=== PATIENT | male | born 1985 | race Caucasian/White ===

== ENCOUNTER 2016-05-10 10:00 | Outpatient (RCR) | payer OTHER ==
[~2016-05-10 10:00] MED LIST: ADVI200T PO; ATIV2TAB PO; BENA25CA2 PO; BENA25TA4 PO; BENZ35GEL TOP; BENZ5GEL16 TOP; CELE20TA PO; DOXY100C PO; DULO30CA PO; HYDR-3713 PO; LORA-376 PO; MINO0.1C PO; MINO100C PO; PAME50CA PO; PARO10TA84 PO; PAXI20TA3 PO; TRAM150C5 PO; TRAM37.53 PO; TRAM50TA2 PO; TRAZ100T4 PO; TRAZ50TA4 PO; ULTR37.52 PO; [UNRECOGNIZED DRUG - CODE] EX; [UNRECOGNIZED DRUG - OTHER] PO; [UNRECOGNIZED DRUG - OTHER] TOP
== END 2016-05-11 ==
LOC: M OUTALCOH 10:00
PROVIDERS: ATTEND Psychiatry & Neurology Psychiatry
DX: F12.20 Cannabis dependence, uncomplicated (principal); F11.20 Opioid dependence, uncomplicated

== ENCOUNTER 2016-06-07 09:45 | Emergency (ER) | payer OTHER ==
[2016-06-07] MEDS ORDERED: ONDANSETRON 4 MG ORAL DISINTEGRATING TAB (S0181) As Ordered ONE (10:05)
--- NOTE | 2016-06-07 10:12 | EDDOCDS ---
Physician Documentation [facility] Name: Sridhar Zimmerman Age: 31 yrs Sex: Male : 1985 Arrival Date: 06/07/2016 Time: 09:45 Bed TR7 Private MD: RISHABH MEDINA Disposition: 06/07/16 10:02 Discharged to Home/Self Care. Impression: Nausea and vomiting, Diarrhea, unspecified. - Condition is Stable. - Discharge Instructions: Viral Gastroenteritis. - Prescriptions for ZOFRAN ODT 4 mg - dissolve 1 tablet by ORAL route 4 times per day As needed do not chew, do not swallow whole; 10 tablet. - Medication Reconciliation, Work Release Form - 1 day form. - Follow up: RISHABH MEDINA; When: Call to arrange an appointment; Reason: Wound/Symptom Recheck, Recheck today's complaints, Worsening of conditions, Continuance of care. - Problem is an ongoing problem. - Symptoms are unchanged. Historical: - Allergies: no known allergies; - Home Meds: 1. doxycycline hyclate 100 mg Oral tab 1 cap every 12 hours for Acne Rosacea (Last dose: 06/07/2016) 2. tramadol 50 mg Oral tab 1 tab 5 times per day (Last dose: 06/07/2016 07:00) - PMHx: Seizures; Chronic Neck Pain; CERVICAL FRACTURE; acne; - PSHx: none; - Social history: Smoking status: Patient states former smoker of tobacco. No barriers to communication noted, The patient speaks fluent Palestinian, Speaks appropriately for age. - Family history: Not pertinent. - : The pt / caregiver states he / she is not on anticoagulants. Home medication list is obtained from the patient. - Exposure Risk Screening:: None identified. Vital Signs: 06/07 09:47 BP 149 / 88; Pulse 100; Resp 18; Temp 99.0(O); Pulse Ox 100% ; Weight 70.31 kg / 155.01 nb2 lbs; Height 5 ft. 5 in. (165.10 cm) (R); Pain 0/10; 09:47 Body Mass Index 25.79 (70.31 kg, 165.10 cm) nb2 MDM: 10:02 Ondansetron ODT Oral Disintegrating Tablet 4 mg PO once ordered. cc10 Administered Medications: 10:06 Drug: Ondansetron ODT 4 mg [ondansetron 4 mg disintegrating tablet (1 tabs)] Route: PO; ead Signatures: Nelly Stapleton,SEGUN RN Gaurang Gonzalez PA-C PA-C cc10 MTDD
--- NOTE | 2016-06-07 10:12 | EDDOCDS ---
Nurse's Notes [facility] Name: Sridhar Zimmerman Age: 31 yrs Sex: Male : 1985 Arrival Date: 06/07/2016 Time: 09:45 Bed TR7 Private MD: RISHABH MEDIAN Diagnosis: Nausea and vomiting;Diarrhea, unspecified Presentation: 06/07 09:52 Presenting complaint: Patient states: pt c/o "aches and pains," n/v/d. reports symptoms ead for approx 1 week. Adult Sepsis Screening: The patient does not have new or worsening altered mentation. Patient's respiratory rate is less than 22. Systolic blood pressure is greater than 100. Patient has a qSOFA score of 0- Negative Sepsis Screen. Suicide/Homicide risk assessment- the patient denies having any suicidal and/or homicidal ideations and does not present with any other emotional, behavioral or mental health complaints. Status: Patient is not a field service engineer or dependent. Transition of care: patient was not received from another setting of care. 09:52 Acuity: ELBA Level 3 ead 09:52 Method Of Arrival: Walkin/Carried/Asstd ead Triage Assessment: 09:53 General: Appears in no apparent distress, comfortable, Behavior is appropriate for age, ead cooperative. Pain: Location: generalized body aches Pain currently is 5 out of 10 on a pain scale. HIV screening NA for this visit Offered previously. Neurological: No deficits noted. EENT: Denies nasal congestion, nasal discharge. Respiratory: Airway is patent Respiratory effort is even, unlabored. Respiratory: Reports cough that is. GI: Reports diarrhea, nausea, vomiting. Derm: Skin is pink, warm & dry. Historical: - Allergies: no known allergies; - Home Meds: 1. doxycycline hyclate 100 mg Oral tab 1 cap every 12 hours for Acne Rosacea (Last dose: 06/07/2016) 2. tramadol 50 mg Oral tab 1 tab 5 times per day (Last dose: 06/07/2016 07:00) - PMHx: Seizures; Chronic Neck Pain; CERVICAL FRACTURE; acne; - PSHx: none; - Social history: Smoking status: Patient states former smoker of tobacco. No barriers to communication noted, The patient speaks fluent Maori, Speaks appropriately for age. - Family history: Not pertinent. - : The pt / caregiver states he / she is not on anticoagulants. Home medication list is obtained from the patient. - Exposure Risk Screening:: None identified. Screenin:09 Screening information is obtained from the patient. Fall risk: No risks identified. ead Assistance ADL's: requires no assistance with activities of daily living. Abuse/DV Screen: The patient / caregiver reports he/she is: not in a situation that causes fear, pain or injury. Nutritional screening: No deficits noted. Advance Directives: Currently, there is no health care proxy. There is no Power of [place] [employer]. home support is adequate. Assessment: 10:09 General: Appears in no apparent distress, comfortable, Behavior is appropriate for age, ead cooperative. Neurological: No deficits noted. Respiratory: Airway is patent Respiratory effort is even, unlabored. GI: Abdomen is non- distended Reports diarrhea, nausea, vomiting. Derm: Skin is pink, warm & dry. Vital Signs: 09:47 BP 149 / 88; Pulse 100; Resp 18; Temp 99.0(O); Pulse Ox 100% ; Weight 70.31 kg; Height nb2 5 ft. 5 in. (165.10 cm) (R); Pain 0/10; 09:47 Body Mass Index 25.79 (70.31 kg, 165.10 cm) nb2 Vitals: 09:47 Log In Time: June 07, 2016 at 09:40. nb2 ED Course: 09:47 Patient visited by Sara Diaz. nb2 09:47 RISHABH MEDINA is Private Physician. nb2 09:47 Patient moved to Waiting nb2 09:48 Patient visited by Sara Diaz. nb2 09:53 Triage Initiated ead 09:54 Patient moved to Triage 3 ead 09:55 [facility] Melendez [facility] cc[facility] 09:55 Thanh Odonnell MD is Attending Physician. cc10 09:55 Patient visited by Gaurang Melendez PA-C. cc10 09:55 Patient visited by Gaurang Melendez PA-C. cc10 10:02 RISHABH MEDINA is Referral Physician. cc10 10:09 Patient moved to TR7 ead 10:09 The patient / caregiver is instructed regarding the plan of care and ED course. ead 10:09 No IV's were initiated during this patient's visit. No procedures done that require ead assistance. Administered Medications: 10:06 Drug: Ondansetron ODT 4 mg [ondansetron 4 mg disintegrating tablet (1 tabs)] Route: PO; ead Order Results: There are currently no results for this order. Outcome: 10:02 Discharge ordered by Provider. cc10 10:09 Discharge Assessment: Patient awake and alert. obeys commands, Oriented to person, ead place and time. patient administered narcotics - no. The following High Risk Discharge criteria are identified: None. Discharged to home ambulatory. Condition: unchanged. Discharge instructions given to patient, Instructed on discharge instructions, follow up and referral plans. medication usage, Demonstrated understanding of instructions, medications, Pt was receptive of discharge instructions/ teaching. Prescriptions given X 1, Work note provided to patient. No special radiology studies were completed. Property sent home with patient. 10:11 Patient left the ED. ead Signatures: Nelly Stapleton RN RN ead [place], Colin, PAJimC PA-C cc10 Sara Diaz nb2 KEV
--- NOTE | 2016-06-09 11:11 | EDDOCDS ---
Physician Documentation [facility] Name: Sridhar Zimmerman Age: 31 yrs Sex: Male : 1985 Arrival Date: 06/07/2016 Time: 09:45 Bed TR7 Private MD: RISHABH MEDINA Disposition: 06/07/16 10:02 Discharged to Home/Self Care. Impression: Nausea and vomiting, Diarrhea, unspecified. - Condition is Stable. - Discharge Instructions: Viral Gastroenteritis. - Prescriptions for ZOFRAN ODT 4 mg - dissolve 1 tablet by ORAL route 4 times per day As needed do not chew, do not swallow whole; 10 tablet. - Medication Reconciliation, Work Release Form - 1 day form. - Follow up: RISHABH MEDINA; When: Call to arrange an appointment; Reason: Wound/Symptom Recheck, Recheck today's complaints, Worsening of conditions, Continuance of care. - Problem is an ongoing problem. - Symptoms are unchanged. Historical: - Allergies: no known allergies; - Home Meds: 1. doxycycline hyclate 100 mg Oral tab 1 cap every 12 hours for Acne Rosacea (Last dose: 06/07/2016) 2. tramadol 50 mg Oral tab 1 tab 5 times per day (Last dose: 06/07/2016 07:00) - PMHx: Seizures; Chronic Neck Pain; CERVICAL FRACTURE; acne; - PSHx: none; - Social history: Smoking status: Patient states former smoker of tobacco. No barriers to communication noted, The patient speaks fluent Chadian, Speaks appropriately for age. - Family history: Not pertinent. - : The pt / caregiver states he / she is not on anticoagulants. Home medication list is obtained from the patient. - Exposure Risk Screening:: None identified. Vital Signs: 06/07 09:47 BP 149 / 88; Pulse 100; Resp 18; Temp 99.0(O); Pulse Ox 100% ; Weight 70.31 kg / 155.01 nb2 lbs; Height 5 ft. 5 in. (165.10 cm) (R); Pain 0/10; 09:47 Body Mass Index 25.79 (70.31 kg, 165.10 cm) nb2 MDM: 10:02 Ondansetron ODT Oral Disintegrating Tablet 4 mg PO once ordered. cc10 11:04 [facility] Payment Agreement was scanned into [employer] and attached to record. lg 11:06 Financial registration complete. mm15 Administered Medications: 10:06 Drug: Ondansetron ODT 4 mg [ondansetron 4 mg disintegrating tablet (1 tabs)] Route: PO; ead Signatures: Willem Vivar, [place] Reg lg Issa Hook mm15 Nelly StapletonRN RN ead Gaurang Melendez PA-C PALaura cc10 The chart was reviewed and I authenticate all verbal orders and agree with the evaluation and treatment provided.Attachments: 11:04 [facility] Payment Agreement lg Chart Complete MTDD
--- NOTE | 2016-06-09 11:11 | EDDOCDS ---
Physician Documentation [facility] Name: Sridhar Zimmerman Age: 31 yrs Sex: Male : 1985 Arrival Date: 06/07/2016 Time: 09:45 Bed TR7 Private MD: RISHABH MEDINA Disposition: 06/07/16 10:02 Discharged to Home/Self Care. Impression: Nausea and vomiting, Diarrhea, unspecified. - Condition is Stable. - Discharge Instructions: Viral Gastroenteritis. - Prescriptions for ZOFRAN ODT 4 mg - dissolve 1 tablet by ORAL route 4 times per day As needed do not chew, do not swallow whole; 10 tablet. - Medication Reconciliation, Work Release Form - 1 day form. - Follow up: RISHABH MEDINA; When: Call to arrange an appointment; Reason: Wound/Symptom Recheck, Recheck today's complaints, Worsening of conditions, Continuance of care. - Problem is an ongoing problem. - Symptoms are unchanged. Historical: - Allergies: no known allergies; - Home Meds: 1. doxycycline hyclate 100 mg Oral tab 1 cap every 12 hours for Acne Rosacea (Last dose: 06/07/2016) 2. tramadol 50 mg Oral tab 1 tab 5 times per day (Last dose: 06/07/2016 07:00) - PMHx: Seizures; Chronic Neck Pain; CERVICAL FRACTURE; acne; - PSHx: none; - Social history: Smoking status: Patient states former smoker of tobacco. No barriers to communication noted, The patient speaks fluent Tuvaluan, Speaks appropriately for age. - Family history: Not pertinent. - : The pt / caregiver states he / she is not on anticoagulants. Home medication list is obtained from the patient. - Exposure Risk Screening:: None identified. Vital Signs: 06/07 09:47 BP 149 / 88; Pulse 100; Resp 18; Temp 99.0(O); Pulse Ox 100% ; Weight 70.31 kg / 155.01 nb2 lbs; Height 5 ft. 5 in. (165.10 cm) (R); Pain 0/10; 09:47 Body Mass Index 25.79 (70.31 kg, 165.10 cm) nb2 MDM: 10:02 Ondansetron ODT Oral Disintegrating Tablet 4 mg PO once ordered. cc10 11:04 [facility] Payment Agreement was scanned into [employer] and attached to record. lg 11:06 Financial registration complete. mm15 Administered Medications: 10:06 Drug: Ondansetron ODT 4 mg [ondansetron 4 mg disintegrating tablet (1 tabs)] Route: PO; ead Signatures: Willem Vivar, [place] Reg lg Issa Hook mm15 Nelly StapletonRN RN ead Gaurang Melendez PA-C PALaura cc10 The chart was reviewed and I authenticate all verbal orders and agree with the evaluation and treatment provided.Attachments: 11:04 [facility] Payment Agreement lg Chart Complete MTDD
--- NOTE | 2016-06-09 11:11 | EDDOCDS ---
Nurse's Notes [facility] Name: Sridhar Zimmerman Age: 31 yrs Sex: Male : 1985 Arrival Date: 06/07/2016 Time: 09:45 Bed TR7 Private MD: RISHABH MEDINA Diagnosis: Nausea and vomiting;Diarrhea, unspecified Presentation: 06/07 09:52 Presenting complaint: Patient states: pt c/o "aches and pains," n/v/d. reports symptoms ead for approx 1 week. Adult Sepsis Screening: The patient does not have new or worsening altered mentation. Patient's respiratory rate is less than 22. Systolic blood pressure is greater than 100. Patient has a qSOFA score of 0- Negative Sepsis Screen. Suicide/Homicide risk assessment- the patient denies having any suicidal and/or homicidal ideations and does not present with any other emotional, behavioral or mental health complaints. Status: Patient is not a automotive service cashier or dependent. Transition of care: patient was not received from another setting of care. 09:52 Acuity: ELBA Level 3 ead 09:52 Method Of Arrival: Walkin/Carried/Asstd ead Triage Assessment: 09:53 General: Appears in no apparent distress, comfortable, Behavior is appropriate for age, ead cooperative. Pain: Location: generalized body aches Pain currently is 5 out of 10 on a pain scale. HIV screening NA for this visit Offered previously. Neurological: No deficits noted. EENT: Denies nasal congestion, nasal discharge. Respiratory: Airway is patent Respiratory effort is even, unlabored. Respiratory: Reports cough that is. GI: Reports diarrhea, nausea, vomiting. Derm: Skin is pink, warm & dry. Historical: - Allergies: no known allergies; - Home Meds: 1. doxycycline hyclate 100 mg Oral tab 1 cap every 12 hours for Acne Rosacea (Last dose: 06/07/2016) 2. tramadol 50 mg Oral tab 1 tab 5 times per day (Last dose: 06/07/2016 07:00) - PMHx: Seizures; Chronic Neck Pain; CERVICAL FRACTURE; acne; - PSHx: none; - Social history: Smoking status: Patient states former smoker of tobacco. No barriers to communication noted, The patient speaks fluent Latvian, Speaks appropriately for age. - Family history: Not pertinent. - : The pt / caregiver states he / she is not on anticoagulants. Home medication list is obtained from the patient. - Exposure Risk Screening:: None identified. Screenin:09 Screening information is obtained from the patient. Fall risk: No risks identified. ead Assistance ADL's: requires no assistance with activities of daily living. Abuse/DV Screen: The patient / caregiver reports he/she is: not in a situation that causes fear, pain or injury. Nutritional screening: No deficits noted. Advance Directives: Currently, there is no health care proxy. There is no Power of Hostess Party Sales Representative. home support is adequate. Assessment: 10:09 General: Appears in no apparent distress, comfortable, Behavior is appropriate for age, ead cooperative. Neurological: No deficits noted. Respiratory: Airway is patent Respiratory effort is even, unlabored. GI: Abdomen is non- distended Reports diarrhea, nausea, vomiting. Derm: Skin is pink, warm & dry. Vital Signs: 09:47 BP 149 / 88; Pulse 100; Resp 18; Temp 99.0(O); Pulse Ox 100% ; Weight 70.31 kg; Height nb2 5 ft. 5 in. (165.10 cm) (R); Pain 0/10; 09:47 Body Mass Index 25.79 (70.31 kg, 165.10 cm) nb2 Vitals: 09:47 Log In Time: June 07, 2016 at 09:40. nb2 ED Course: 09:47 Patient visited by Sara Diaz. nb2 09:47 RISHABH MEDINA is Private Physician. nb2 09:47 Patient moved to Waiting nb2 09:48 Patient visited by Sara Diaz. nb2 09:53 Triage Initiated ead 09:54 Patient moved to Triage 3 ead 09:55 [facility] Melendez [facility] cc[facility] 09:55 Thanh Odonnell MD is Attending Physician. cc10 09:55 Patient visited by Gaurang Melendez PA-C. cc10 09:55 Patient visited by Gaurang Melendez PA-C. cc10 10:02 RISHABH MEDINA is Referral Physician. cc10 10:09 Patient moved to TR7 ead 10:09 The patient / caregiver is instructed regarding the plan of care and ED course. ead 10:09 No IV's were initiated during this patient's visit. No procedures done that require ead assistance. 11:04 [facility] Payment Agreement was scanned into [employer] and attached to record. lg Administered Medications: 10:06 Drug: Ondansetron ODT 4 mg [ondansetron 4 mg disintegrating tablet (1 tabs)] Route: PO; ead Order Results: There are currently no results for this order. Outcome: 10:02 Discharge ordered by Provider. cc10 10:09 Discharge Assessment: Patient awake and alert. obeys commands, Oriented to person, ead place and time. patient administered narcotics - no. The following High Risk Discharge criteria are identified: None. Discharged to home ambulatory. Condition: unchanged. Discharge instructions given to patient, Instructed on discharge instructions, follow up and referral plans. medication usage, Demonstrated understanding of instructions, medications, Pt was receptive of discharge instructions/ teaching. Prescriptions given X 1, Work note provided to patient. No special radiology studies were completed. Property sent home with patient. 10:11 Patient left the ED. ead Signatures: Willem Vivar, Reg Reg Nelly Starr,RN RN ead Gaurang Melendez, PA-C PA-C cc10 Sara Diaz nb2 Chart Complete MTDD
== END 2016-06-07 10:11 | disposition home or self-care (01) ==
LOC: M ED 09:45
DX: R11.2 Nausea with vomiting, unspecified (principal); R19.7 Diarrhea, unspecified; R56.9 Unspecified convulsions; L70.9 Acne, unspecified; M54.2 Cervicalgia; G89.29 Other chronic pain; Z87.891 Personal history of nicotine dependence; Z79.891 Long term (current) use of opiate analgesic; Z79.899 Other long term (current) drug therapy

== ENCOUNTER 2016-06-07 10:00 | Outpatient (RCR) | payer OTHER | END 2016-06-08 | LOC: M OUTALCOH 10:00 | PROVIDERS: ATTEND Psychiatry & Neurology Psychiatry | DX: F11.20 Opioid dependence, uncomplicated (principal); F12.20 Cannabis dependence, uncomplicated ==

== ENCOUNTER 2016-08-22 00:33 | Emergency (ER) | payer OTHER ==
[~2016-08-22] VITALS: Ht 165.1 cm; Wt 70.3 kg
[~2016-08-22 00:33] MED LIST changes: -BENZ35GEL TOP; +ERYTGEL TOP
[2016-08-22] MEDS ORDERED: CLON0.5T PO (00:43)
[2016-08-22 01:54] VITALS: BP 130/69
== END 2016-08-22 02:11 | disposition home or self-care (01) ==
LOC: M ED 01:47
DX: L70.0 Acne vulgaris (principal); Z79.2 Long term (current) use of antibiotics; Z79.899 Other long term (current) drug therapy

== ENCOUNTER 2016-09-06 14:32 | Inpatient (IN) | payer OTHER ==
[~2016-09-06] VITALS: Ht 165.1 cm; Wt 68.8 kg
[~2016-09-06 14:32] MED LIST changes: +CLON0.5T PO
[2016-09-06] MEDS ORDERED: HYDR1CAP25 PO (14:40)
[2016-09-06 15:41] LABS: MEAN CORPUSCULAR HEMOGLOBIN 31.9 pg (27.0-33.0); MEAN CORPUSCULAR HGB CONC 34.7 g/dl (32.0-36.5); MEAN CORPUSCULAR VOLUME 91.9 fl (80.0-96.0); RED CELL DISTRIBUTION WIDTH 12.8 % (11.5-14.5); WHITE BLOOD COUNT 5.3 K/mm3 (4.0-10.0)
[2016-09-06 15:55] LABS: METHADONE URINE NEGATIVE (NEGATIVE)
[2016-09-06 16:04] LABS: ALBUMIN 3.9 GM/DL (3.2-5.2); ALBUMIN/GLOBULIN RATIO 1.15 (1.00-1.93); ALKALINE PHOSPHATASE 71 U/L (45-117); ALT/SGPT 40 U/L (12-78); ANION GAP 4 MEQ/L (8-16); AST/SGOT 17 U/L (15-37); BILIRUBIN,DIRECT < 0.1 MG/DL (0.0-0.2); BILIRUBIN,TOTAL 0.2 MG/DL (0.2-1.0); BLOOD UREA NITROGEN 8 MG/DL (7-18); CALCIUM LEVEL 9.2 MG/DL (8.5-10.1); CARBON DIOXIDE LEVEL 30 MEQ/L (21-32); CHLORIDE LEVEL 106 MEQ/L (98-107); CREATININE FOR GFR 1.11 MG/DL (0.70-1.30); GLOMERULAR FILTRATION RATE > 60.0 (>60); GLUCOSE, FASTING 86 MG/DL (70-105); SODIUM LEVEL 140 MEQ/L (136-145); TOTAL PROTEIN 7.3 GM/DL (6.4-8.2)
[2016-09-06] MEDS ORDERED: traZODone 50 MG TAB PO PRN (17:00)
[2016-09-06] MEDS ORDERED: CLIN1GEL5 TOP (17:11)
[2016-09-06] MEDS ORDERED: ERYTHROMYCIN 2% TOP (17:11)
[2016-09-06 18:16] VITALS: BP 141/84
[2016-09-06] MEDS ORDERED: ACETAMINOPHEN TAB 650MG DOSE (2X325MG) PO PRN (19:00)
[2016-09-06] MEDS ORDERED: MOM 30ML SUSPENSION UDC PO PRN (19:00)
[2016-09-06] MEDS: cloNIDine 0.1 MG TAB PO PRN (19:05)
[2016-09-06] MEDS: DOXYCYCLINE HYCLATE 100 MG TAB PO SCH (20:51)
[2016-09-06] MEDS: ERYTHROMYCIN 2 % GEL 30GM TOP PRN (20:51)
[2016-09-06] MEDS: hydrOXYzine 25 MG TAB PO PRN (20:51)
[2016-09-07 06:15] VITALS: BP 114/67
[2016-09-07] MEDS: cloNIDine 0.1 MG TAB PO PRN ×2 (08:26→21:07)
[2016-09-07] MEDS: DOXYCYCLINE HYCLATE 100 MG TAB PO SCH ×2 (08:27→20:02)
[2016-09-07] MEDS: ERYTHROMYCIN 2 % GEL 30GM TOP PRN ×2 (08:27→20:02)
--- NOTE | 2016-09-07 09:54 | HPEPDOC ---
Medical History and Physical Date of Admission September 06, 2016 at 17:20 History and Physical PCP: none ATTENDING: Dr. Luis Antonio Godinez HPI: 31yoM admitted to [facility] for unspecified depressive disorder, being medically examined today. He is requesting tramadol or Vicodin to be ordered for his pain. (He has a h/o drug induced seizure with tramadol). He states he has been getting these on the street. He states this is since early this year when his previous PCP stopped prescribing for him. Patient is complaining of neck pain which is a chronic issue for him since approximately 2012. He apparently fell while having a seizure and fractured his neck. According to the patient, the seizure was caused by excessive tramadol use. He denies radiating pain down the arms. He denies weakness in the arms. He states he has been seen by orthopedics in [place] in the past with no recommendation for surgery. He was previously evaluated by neurology. He has been to Dr. Rodriguez in the past which he states injections were ineffective. Lyrica and gabapentin ineffective. He was seen by [facility] pain management regarding chronic neck pain. At that time potential risks of tramadol including seizure were apparently discussed including potential risks of opiate medication. The patient stated he was aware of potential risks however the benefits outweighed the risks to him and he wished to continue either tramadol or Vicodin. ISTOP was accessed Ref # [id number] indicating the patient received 240 tablets of tramadol 50 mg on 05/09/16. He subsequently received 120 tablets of hydrocodone 5/325 on 05/27/16. He states he has also been having low back pain. No weakness, numbness, or tingling in lower extremities. Denies any recent seizure activity. Denies any fevers, chills, weakness, fatigue, COLMENARES, CP, SOB, cough, palpitations, abdominal pain, N/V/D or changes in bowel or bladder habits. PMHx: Chronic neck pain/history cervical fracture History of drug induced seizure Acne rosacea CT cervical spine 09/13/15 disc space narrowing C4-5, 56, neural foraminal narrowing C3-4, 4-5, 5-6 and 6-7. No change compared with 08/17/15. CT brain 08/17/[address] LS Spine 05/11/15. No acute lumbar spine bony abnormality. L2 and L3 superior endplate Schmorl's nodes with associated mild age indeterminate superior endplate compression deformities of these vertebral bodies. Partial L5 sacralization. MRI Brain 10/30/15. 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 No white matter signal abnormality, acute infarct, hemorrhage, mass or mass effect. No other significant finding. EEG 11/07/15. This EEG in awake, drowsy states, stage 1 and 2 sleep, is within normal limits. EKG leads showed normal sinus rhythm PSHX: Denies SOCHX: Resides in: [place], lives with mother Marital Status: Single Kids: 1 Employment: Unemployed Tobacco use: Denies ETOH: Denies Illicit Drugs: Marijuana twice per month IV Drug Use: Denies Tattoos done unprofessionally: Denies FAMHX: Mother: Alive, diabetes, hypertension, overweight Father: Alive, paraplegic Siblings: Alive, well Children: Alive, well Unexpected deaths due to medical reasons: None. ROS: As noted in HPI, otherwise 11pt ROS of systems reviewed and unremarkable PE: GEN: 31yoM, appears stated age. Well-nourished, well developed. No acute distress. Alert and oriented x 3. Anxious. HEENT: Normocephalic, atraumatic. Pupils are equal, round, and reactive to light. Extraocular movements are intact. No nystagmus appreciated. Sclera are nonicteric. Conjunctiva without injection. Nose midline. Nasal turbinates without bogginess. EACs both patent BL. TMs both visualized and holland with good cone of light, no bulging or erythema. No facial asymmetry. Moist mucous membranes. Dentition fair. Pharynx pink and moist, no cobblestoning. Neck supple , trachea midline. No lymphadenopathy or thyromegaly appreciated. CHEST: Regular rate and rhythm, +S1, +S2 LUNGS: Clear to auscultation bilaterally. No wheezes, rales, or rhonchi. Breathing appears symmetric and easy. Patient is speaking in full sentences. No accessory muscle use. ABD: Round, soft, non-tender, non-distended. +Bowel sounds throughout. No rebound or guarding. No costovertebral angle tenderness. EXT: Pulses 2+ bilaterally dorsalis pedis and radial. No lower extremity edema appreciated. SKIN: [place], dry, warm. Capillary refill <2sec. No rashes. NEURO: Alert and oriented x 3. Cranial nerves III-XII are intact. No focal deficits appreciated. EKG: pending A&P: 31yoM admitted to [facility] for Unspecified depressive disorder. 1. Psych. Plan per Psychiatry. EKG pending. 2. Chronic neck pain. CT C Spine as above. Will request pain management opinion. Apply Lidoderm patch daily. Tylenol as needed. 3. Chronic LBP. CT as above. Lidoderm patch daily, Tylenol as needed. Await Pain management opinion. 4. Arrange follow up with PCP on discharge. 5. Substance use. Per psychiatry. 6. H/O drug induced seizure with Tramadol use. Avoid use of Tramadol. MRI Brain and EEG 10/24. Seen by Neurology last admission regarding seizure avoidance of tramadol recommended. 7. Acne rosacea. Continue doxycycline 100 mg twice a day,Continue Clindamax BID. 8. Joe staff member present throughout exam. Vital Signs Vital Signs Date Time Temp Pulse Resp B/P (MAP) Pulse Ox O2 Delivery O2 Flow Rate FiO2 09/07/16 09:27 Room Air 09/07/16 08:26 143/87 09/07/16 06:15 99.4 99 18 09/06/16 18:16 100 Laboratory Data Labs 24H Laboratory Tests 2 09/06/16 15:19: Anion Gap 4L, Glomerular Filtration Rate > 60.0, Calcium Level 9.2, Aspartate Amino Transf (AST/SGOT) 17, Alanine Aminotransferase (ALT/SGPT) 40, Alkaline Phosphatase 71, Total Bilirubin 0.2, Direct Bilirubin < 0.1, Total Protein 7.3, Albumin 3.9, Albumin/Globulin Ratio 1.15, Thyroid Stimulating Hormone (TSH) 0.634, Salicylates Level < 1.7L, Urine Amphetamines Screen NEGATIVE, Urine Benzodiazepines Screen NEGATIVE, Urine Opiates Screen POSITIVEH, Urine Methadone Screen NEGATIVE, Acetaminophen Level < 2.0L, Urine Barbiturates Screen NEGATIVE, Urine Phencyclidine Screen NEGATIVE, Urine Cocaine Metabolite Screen NEGATIVE, Urine Cannabinoids Screen NEGATIVE, Ethyl Alcohol Level < 0.003 CBC/BMP Laboratory Tests 09/06/16 15:19 Red Blood Count 4.39, Mean Corpuscular Volume 91.9, Mean Corpuscular Hemoglobin 31.9, Mean Corpuscular Hemoglobin Concent 34.7, Red Cell Distribution Width 12.8 Home Medications Scheduled Clindamycin Phosphate (Clindamax) 1 % Gel, 1 DOSE TOP BID Clonazepam (Clonazepam) 0.5 Mg Tab, 0.5 MG PO TID for ANXIETY Doxycycline Hyclate (Doxycycline Hyclate) 100 Mg Cap, 100 MG PO BID for acne Scheduled PRN Hydroxyzine Pamoate (Hydroxyzine Pamoate) 25 Mg Cap, 25 MG PO QID PRN for WITHDRAWAL SYMPTOMS [Erythromycin 2%] , 1 DOSE TOP BID PRN for ACNE BREAKOUT Allergies Coded Allergies: No Known Allergies (Unverified , 03/22/15) Mali Martinez September 07, 2016 09:54
[2016-09-07] MEDS: LIDOCAINE 5% (LIDODERM) PATCH TD SCH (09:58)
[2016-09-07] MEDS: hydrOXYzine 25 MG TAB PO PRN ×2 (11:48→20:02)
[2016-09-07] MEDS: **NOTE PATIENT COMMENT** MISC XX SCH (11:49)
[2016-09-07] MEDS ORDERED: LOPERAMIDE 2 MG CAP PO PRN (17:30)
[2016-09-07] MEDS ORDERED: BUPRENORPHINE/NALOXONE 8-2MG SUBLINGUAL TABLET(SUBOXONE) SL SCH (17:30)
[2016-09-07 18:16] VITALS: BP 110/65
[2016-09-07 21:07] VITALS: BP 151/81
--- NOTE | 2016-09-07 21:46 | MHHPEPDOC ---
[facility] History & Physical History and Physical DATE OF ADMISSION: September 06, 2016 at 17:20 LEGAL STATUS AT ADMISSION: 9.39 CHIEF COMPLAINT: "I just want help" HISTORY OF THE PRESENT ILLNESS: The patient 31-year-old man presented to [facility] with passive suicidal ideation describing that multiple stressors including caring for his ailing mother and her boyfriend as well as isolate to father that begun taking severe toll on his mood and sleep. Describe that he'd had difficulty caring for them and attending to his employment and thus found himself unemployed with additional difficulties in the isolated area of [facility]. He described that he additionally had difficulties misusing black-market prescription opioids since 9 years ago when he had had a injury. Describe that he became rapidly addicted to these and subsequently has become very tearful and anxious thinking about his family members, fearing that they will and leave him. He describes difficulty with intermittent depressive symptoms that do not mate full criteria for clinical depression as well as generalized anxiety. PSYCHIATRIC ROS: Affective: The patient denies any episodes of unprovoked depressed mood associated with neurovegetative symptoms lasting longer than 2 weeks with symptoms present nearly everyday. The patient denies any episodes of euphoria/dysphoria associated with decreased need for sleep, hedonism, talkatively or impulsivity lasting longer than 5 days. Anxiety: the patient does submit to excessive background anxiety does unprovoked and freestanding. He does not allude any discrete episodes of panic. In the past chart he does appear to endorse discrete episodes of panic but these are in the context of substance use. Trauma: The patient denies any traumatic events associated with nightmares or intrusive thoughts. Psychosis:The patient denies any experiences of auditory or visual hallucinations. They deny any episodes of paranoia or delusional thinking in the past Personality: the patient screens equivalently positive for personality disorder PAST PSYCHIATRIC HISTORY: Prior Psychiatric Diagnosis: "depression" Previous admissions: 3 to 4 Current Medications: Klonopin Suicide attempts: 1 suspected attempt year and half ago with the tramadol overdose Psychotropic Medication History: has been tried on "everything" but is unable to remember any medication names ALLERGIES: Please see below. FAMILY PSYCHIATRIC HISTORY: reports no family psychiatric history in terms of addiction, suicides are mental health disorders that the patient is aware of SOCIAL HISTORY: Early Relations:/development: the patient grew up in [place], where he described his family as generally "good" up until he caught his mother cheating on his father, which he believes subsequently precipitated their divorce -sibling order: unknown -Paternal relationships: describes that he is "little problem" with his father but that he was generally handy. He described his mother and him have a tumultuous relationship after he had exposed her for her cheating. 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 Legal: a few scattered drug-related offenses Martial: unmarried, as an ex-girlfriend who lives in [place] with his young son Economic: supported by his mother current boyfriend Supports: mother, her boyfriend and his paralyzed father Abuse/trauma: refutes any sexual, physical or emotional abuse SUBSTANCE ABUSE HISTORY: is a significant abuse history of opioids started 9 years ago after an injury, is misuse the number of prescription medications including hydrocodone and tramadol. He has a significant history of overusing tramadol point of seizures. He most recently is hydrocodone just prior to coming to the ER. He also has a history of using marijuana nicotine as well as alcohol. Most recently was at [facility] for rehab. MEDICAL HISTORY: Acne chronic neck pain hippocampal atrophy MENTAL STATUS EXAMINATION: General: mildly disheveled Speech: coherent Thought processes: linear Thought content: perseverative on anxiety Abstract reasoning, and computation: intact Description of associations: intact Description of abnormal or psychotic thoughts: makes no threats towards himself or others at this time. Does not appear to be responding to internal stimuli. Does not appear to be endorsing any bizarre or paranoid ideation. Judgment: limited Insight: limited Orientation: alert and oriented times 3 Recent and remote memory: reports difficulty with remote memory, but describes recent memory intact Attention span and concentration: intact Fund of knowledge: adequate Mood: "bad" Affect: dysthymic and tearful DIAGNOSES: 1. Substance induced depressive disorder 2. Polysubstance use disorder, severe, in withdrawal 3. Substance induced anxiety disorder ASSESSMENT: 31-year-old man whom had a relatively functional occupational history, became addicted to opioids after neck injury and subsequently became nonfunctional with severe depression and anxiety secondary to his long use of opioids. He does have some motivation towards getting better attending rehab. PROBLEM LIST: 1. Substance use 2. Anxiety 3. Depression INITIAL TREATMENT PLAN: 1. Patient was admitted on a 9.39 legal status. 2. Complete history was obtained. 3. With patients permission, family will be contacted and database will be expanded. 4. Patients medication regimen will be reviewed and changed accordingly. -Patiently placed on a buprenorphine taper with one dose of 8 mg for opioid withdrawal -he will additionally be placed on as the medications broke would withdrawal -will explore serotonin drugs patient resolves in order to increase hippocampal size 5. Patient will be provided with protected environment. 6. Patient will be treated with individual, group, and milieu therapies. 7. Patient will receive supportive psych-education. 8. Discharge planning will commence immediately. 9. Outpatient follow-up treatment will be strongly recommended. 10. The initial treatment plan will focus initially on: opioid detoxification and subsequent start on serotonergic drugs ESTIMATED LENGTH OF STAY: 2-5 DAYS. TIME SPENT COUNSELING AND COORDINATING INITIAL CARE: 50 minutes. Medications Scheduled Clindamycin Phosphate (Clindamax) 1 % Gel, 1 DOSE TOP BID, (Reported) Clonazepam (Clonazepam) 0.5 Mg Tab, 0.5 MG PO TID for ANXIETY, (Reported) Doxycycline Hyclate (Doxycycline Hyclate) 100 Mg Cap, 100 MG PO BID for acne, ( Reported) Scheduled PRN Hydroxyzine Pamoate (Hydroxyzine Pamoate) 25 Mg Cap, 25 MG PO QID PRN for WITHDRAWAL SYMPTOMS, (Reported) [Erythromycin 2%] , 1 DOSE TOP BID PRN for ACNE BREAKOUT, (Reported) Allergies Coded Allergies: No Known Allergies (Unverified , 03/22/15) E ATTESTATION My preceptor for this patient encounter was physically present in the building during the encounter and was fully available. As needed, all aspects of the patient interview, examination, medical decision making process, and medical care plan development were reviewed and approved by the preceptor. Preceptor is aware and concurs with the plan as stated in the body of this note and will attest to such by his/her cosignature. RALEIGH CONNOLLY DO September 07, 2016 21:46
[2016-09-07] MEDS ORDERED: BUPRENORPHINE/NALOXONE 8-2MG SUBLINGUAL TABLET(SUBOXONE) SL ONE (22:00)
--- NOTE | 2016-09-07 22:42 | ECGEPIP ---
Stationary ECG Study [facility] Test Date: 2016-09-07 Pat Name: ALYSHA STEARNS Department: Room: [place] [address] Gender: M [employer] Metal: KADEEM : 1985 Requested By: Mali Martinez Order Number: [id number] Reading MD: Luis Antonio Root Measurements Intervals [place] Rate: 87 P: 24 NE: 156 QRS: 15 QRSD: 89 T: 28 QT: 338 QTc: 408 Interpretive Statements SINUS RHYTHM Within normal limits. Electronically Signed On 09-07-2016 22:42:33 EDT by Luis Antonio Root
[2016-09-08 06:24] VITALS: BP 137/85
[2016-09-08] MEDS: LIDOCAINE 5% (LIDODERM) PATCH TD SCH (08:15)
[2016-09-08] MEDS: DOXYCYCLINE HYCLATE 100 MG TAB PO SCH ×2 (08:17→20:03)
[2016-09-08] MEDS: ERYTHROMYCIN 2 % GEL 30GM TOP PRN ×2 (08:17→20:04)
[2016-09-08] MEDS: hydrOXYzine 25 MG TAB PO PRN ×2 (08:20→20:03)
[2016-09-08] MEDS ORDERED: BUPRENORPHINE/NALOXONE 8-2MG SUBLINGUAL TABLET(SUBOXONE) SL ONE (17:30)
[2016-09-08 18:37] VITALS: BP 126/76
--- NOTE | 2016-09-08 18:53 | CR ---
DATE OF CONSULTATION: 09/08/2016 REFERRING PROVIDER: KAR Henao. CHIEF COMPLAINT: 1. Neck pain. 2. Low back pain. HISTORY OF PRESENT ILLNESS: Sridhar is a 31-year-old gentleman admitted to inpatient mental health unit due to altered mental status. It was noted that he had high opiate level on toxicology report on admission. I-STOP Registry is reviewed and shows no current prescribed opioids for this gentleman in several months. The patient states that he buys pain medication on the street. Reports that he took Vicodin approximately 20 tablets 2 days ago. History of having seizures with withdrawing. Long history of substance abuse. Long history of neck pain and low back pain. The patient attributes his use of street drugs to treat chronic low back and neck pain.. He has been having neck pain since 2012. States he has "tried multiple different medications and treatments and nothing works." Also history of chronic low back pain of which the patient states has flared up over the past 2 months. Denies any precipitating events. Rating neck pain as a 4/10 VAS and low back pain as a 3/10 VAS. No particular aggravating factors. The patient states when he was in here last he received Ultracet that was helpful. Due to his potential for withdrawal seizures, I informed him that I did not think that even Ultracet would be recommended. SOCIAL HISOTRY: Lives with his mother. Admits to a long history of addiction disorder with use of opiates. Denies injecting or snorting medication. FAMILY HISTORY: Noncontributory. PHYSICAL EXAMINATION: GENERAL: Alert, oriented, good eye contact. Affect is somewhat frustrated / depressed. VITAL SIGNS: 97.3, 88, 18, BP 137/85. CARDIAC: S1-S2. Normal rate and rhythm. RESPIRAOTRY: Lung sounds clear. Respirations nonlabored. NEUROMUSCULAR: Muscle strength of the upper and lower extremities 5/5. Normal sensation to light touch lower extremities. Inspection of spine, mild tenderness noted over bilateral sacroiliac joint region. Otherwise nontender. Normal steady gait. ASSESSMENT: 1. Cervicalgia. 2. Sacroiliac joint pain. 3. Chronic low back pain. PLAN: The patient states he is ready to go into an inpatient facility for addiction disorder. I would not recommend using Ultracet due to the possibility of him withdrawing in the next day and possibility of seizures associated of withdrawal could be complicated by use of tramadol. I do not think further imaging studies are necessary at this time. We talked a little bit about the alternatives to medication for chronic pain to include maybe a referral to our pain center from his primary care provider after his inpatient addiction disorder stay. Of course, having medication available for withdrawal would be warranted with his condition and recent use of large quantities of opiates. I would encourage use of Tylenol and [place] for complaints of pain. Continue with encouraging alternatives for relaxation and assistance with pain control. Thank you for allowing us to participate in the care of your patient. If you have any questions please do not hesitate to contact me. Sincerely, Mae Prescott Family nurse practitioner pain [facility] julisa ANGULO
[2016-09-08] MEDS: fluvoxaMINE MALEATE 50 MG TAB PO SCH (20:03)
[2016-09-08] MEDS: **NOTE PATIENT COMMENT** MISC XX SCH (20:45)
--- NOTE | 2016-09-08 22:04 | MHIPNPDOC ---
[facility] Progress Note Progress Note DATE OF SERVICE: 09/08/16 INTERVAL HISTORY: Medication Side effects: the patient reports no side effects from his buprenorphine, clonidine or any other medications that is taken currently Behavior/events: the patient has been engaged the milieu, pleasant and friendly. No events overnight Group Attendance: has been attending groups frequently Psychiatric Symptoms: the patient reports that his initial extreme pain and withdrawal symptoms of opioids has resolved the most part. Describes that at this time is not feeling as anxious and was able to sleep last night. He describes that he felt the Suboxone taper was helpful. VITAL SIGNS: See below. NEW TEST RESULTS: See below CURRENT MEDICATIONS: See below. MENTAL STATUS EXAMINATION: General: Well dressed with good hygiene Speech: Spontaneous and fluid Thought processes: Linear and logical Thought content: worries about symptoms and sleep Abstract reasoning, and computation: Intact Description of associations: Intact Description of abnormal or psychotic thoughts:Denies any suicidal or homicidal ideation. Denies any auditory or visual hallucinations. Does not appear to be responding to internal stimuli. Does not appear to be endorsing any bizarre or paranoid ideation. Judgment: improving Insight: improving Orientation: Alert and orientated 3 Recent and remote memory: Intact Attention span and concentration: Intact Fund of knowledge: Adequate Mood: "better" Affect: Euthymic constricted range DIAGNOSES: 1. Unspecified depressive disorder. 2. Unspecified anxiety disorder. 3. Poly substance use disorder, severe, in withdrawal. ASSESSMENT: opioid withdrawal improving, patients depressive symptoms and anxiety symptoms will need to be addressed now. He is failed multiple antidepressants. MANAGEMENT PLAN: Medications: start Luvox 50 mg daily, start Rozerem 8 milligrams as needed for sleep. Psychotherapy: encourage group therapy Social: referral for substance inpatient rehab Misc:. As needed medications for opioid withdrawal Disposition: The patient will need of further inpatient stay to address severe depressive and anxiety symptoms. TIME SPENT: 20 minutes. Vital Signs Vital Signs Date Time Temp Pulse Resp B/P (MAP) Pulse Ox O2 Delivery O2 Flow Rate FiO2 09/08/16 18:37 98.2 95 18 126/76 (93) 09/07/16 09:27 Room Air 09/06/16 18:16 100 Current Medications Current Medications Acetaminophen (Tylenol Tab) 650 mg Q6HP PRN PO HEADACHE or DISCOMFORT; Start at 19:00; Stop 10/06/16 at 18:59 Al Hydrox/Mg Hydrox/Simethicone (Mylanta) 30 ml Q4HP PRN PO HEARTBURN/ INDIGESTION; Start 09/06/16 at 19:00; Stop 10/06/16 at 18:59 Buprenorphine/ Naloxone (Suboxone 8/2mg) 1 tab ASDIRECTED SL ; Start 09/07/16 at 17:30; Stop 09/07/16 at 18:45; Status DC Clonidine HCl (Catapres) 0.1 mg Q6HP PRN PO Opiate withdrawal Last administered on 09/07/16 21:07; Start 09/06/16 at 17:00; Stop 10/06/16 at 16:59 Doxycycline Hyclate (Vibramycin) 100 mg BID PO Last administered on 09/08/16 20:03; Start 09/06/16 at 21:00; Stop 09/13/16 at 20:59 Erythromycin (Erythromycin) APPLY TO AREAS OF ACNE BIDP PRN TOP Acne breakout Last administered on 09/08/16 20:04; Start 09/06/16 at 18:00; Stop 10/06/16 at 17:59 Fluvoxamine Maleate (Luvox) 50 mg QHS PO Last administered on 09/08/16 20:03; Start 09/08/16 at 21:00; Stop 10/08/16 at 20:59 Home Med (Med Rec Complete!) ASDIRECTED XX ; Start 09/06/16 at 17:15; Stop at 17:15; Status DC Hydroxyzine HCl (Atarax) 25 mg QIDP PRN PO anxiety Last administered on 20:03; Start 09/06/16 at 17:00; Stop 10/06/16 at 16:59 Ibuprofen (Advil) 600 mg Q8HP PRN PO PAIN; Start 09/08/16 at 21:45; Stop at 21:44 Lidocaine (Lidoderm Patch) 2 patch DAILY TD Last administered on 09/07/16 09: 58; Start 09/07/16 at 09:00; Stop 10/07/16 at 08:59 Loperamide HCl (Imodium) 2 mg ASDIRECTED PRN PO DIARRHEA; Start 09/07/16 at 17: 30; Stop 10/07/16 at 17:29 Magnesium Hydroxide (Milk Of Magnesia) 30 ml DAILYPRN PRN PO CONSTIPATION; Start 09/06/16 at 19:00; Stop 10/06/16 at 18:59 Non-Formulary Medication ( See Comment Field Below ) REMOVE LIDODERM PATCH DAILY@21 XX Last administered on 09/07/16 11:49; Start 09/07/16 at 21:00; Stop 10/07/16 at 20:59 Phenylephrine HCl (Neosynephrine 0.25% Nasal [place]) 2 spray Q4HP PRN NA NASAL CONGESTION; Start 09/08/16 at 11:30; Stop 10/08/16 at 11:29 Ramelteon (Rozerem) 8 mg QHS PRN PO SLEEP; Start 09/08/16 at 11:30; Stop at 11:29 Trazodone HCl (Desyrel) 50 mg QHSP PRN PO Insomnia Last administered on 21:10; Start 09/06/16 at 17:00; Stop 09/08/16 at 11:25; Status DC Allergies Coded Allergies: No Known Allergies (Unverified , 03/22/15) GME ATTESTATION My preceptor for this patient encounter was physically present in the building during the encounter and was fully available. As needed, all aspects of the patient interview, examination, medical decision making process, and medical care plan development were reviewed and approved by the preceptor. Preceptor is aware and concurs with the plan as stated in the body of this note and will attest to such by his/her cosignature. RALEIGH CONNOLLY DO September 08, 2016 22:04
[2016-09-08] MEDS: RAMELTEON 8 MG TAB (ROZEREM) PO PRN (23:01)
[2016-09-09 07:04] VITALS: BP 129/71
[2016-09-09] MEDS: LIDOCAINE 5% (LIDODERM) PATCH TD SCH (08:02)
[2016-09-09] MEDS: DOXYCYCLINE HYCLATE 100 MG TAB PO SCH ×2 (08:03→20:06)
[2016-09-09] MEDS: ERYTHROMYCIN 2 % GEL 30GM TOP PRN ×2 (08:04→21:55)
--- NOTE | 2016-09-09 17:39 | MHIPNPDOC ---
[facility] Progress Note Progress Note DATE OF SERVICE: 09/09/16 INTERVAL HISTORY: Medication Side effects: Denies Behavior: He has been compliant with medications, has attended some groups, has not displayed violent or aggressive behavior Group Attendance: Has attended some of the groups Psychiatric Symptom change: Continues to be depressed and anxious but he acknowledges that he has not had severe opioid withdrawal symptoms and that his mind is more clear now. He was able to speak about past events related to his mother and that condition the way he felt towards her during his adolescence and triggered acting outs. Spoke about his previous marriage and how that has affected him. VITAL SIGNS: See below. NEW TEST RESULTS: See below CURRENT MEDICATIONS: See below. MENTAL STATUS EXAMINATION: General: Alert, dressed in hospital clothes, with good eye contact, good hygiene Speech: Normal Thought processes: Intact Thought content: About family dynamics and interactions that contributed to his long-standing depression, anger and anxiety. Abstract reasoning, and computation: Good Description of associations: Not loose Description of abnormal or psychotic thoughts: Not present Judgment: Improving Insight: Improving Orientation: Oriented 3 Recent and remote memory: Intact Attention span and concentration: Good Fund of knowledge: Adequate Mood: "Better" Affect: And less depressed, less anxious, less angry DIAGNOSES: 1. Unspecified depressive disorder 2. Unspecified anxiety disorder. 3. Polysubstance use disorder . ASSESSMENT: Patient has had poor response to medications, group therapy and individual psychotherapy. MANAGEMENT PLAN: Medications: Luvox 50 mg by mouth daily, Atarax 25 mg by mouth 4 times a day when necessary for anxiety and agitation, Rozerem 4 mg by mouth daily at bedtime for insomnia Psychotherapy: Will encouraged to keep attending groups Social: -- Misc: -- Disposition: The patient is to continue hospitalization to work on personal issues regarding his relationship with his mother, his father and his ex-. He needs to heal those relationships. TIME SPENT: 30 minutes. Vital Signs Vital Signs Date Time Temp Pulse Resp B/P (MAP) Pulse Ox O2 Delivery O2 Flow Rate FiO2 09/09/16 07:04 98.4 70 18 129/71 (90) Room Air 09/06/16 18:16 100 Current Medications Current Medications Acetaminophen (Tylenol Tab) 650 mg Q6HP PRN PO HEADACHE or DISCOMFORT; Start at 19:00; Stop 10/06/16 at 18:59 Al Hydrox/Mg Hydrox/Simethicone (Mylanta) 30 ml Q4HP PRN PO HEARTBURN/ INDIGESTION; Start 09/06/16 at 19:00; Stop 10/06/16 at 18:59 Buprenorphine/ Naloxone (Suboxone 8/2mg) 1 tab ASDIRECTED SL ; Start 09/07/16 at 17:30; Stop 09/07/16 at 18:45; Status DC Clonidine HCl (Catapres) 0.1 mg Q6HP PRN PO Opiate withdrawal Last administered on 09/07/16 21:07; Start 09/06/16 at 17:00; Stop 10/06/16 at 16:59 Doxycycline Hyclate (Vibramycin) 100 mg BID PO Last administered on 09/09/16 08 :03; Start 09/06/16 at 21:00; Stop 09/13/16 at 20:59 Erythromycin (Erythromycin) APPLY TO AREAS OF ACNE BIDP PRN TOP Acne breakout Last administered on 09/09/16 08:04; Start 09/06/16 at 18:00; Stop 10/06/16 at 17:59 Fluvoxamine Maleate (Luvox) 50 mg QHS PO Last administered on 09/08/16 20:03; Start 09/08/16 at 21:00; Stop 10/08/16 at 20:59 Home Med (Med Rec Complete!) ASDIRECTED XX ; Start 09/06/16 at 17:15; Stop at 17:15; Status DC Hydroxyzine HCl (Atarax) 25 mg QIDP PRN PO anxiety Last administered on 20:03; Start 09/06/16 at 17:00; Stop 10/06/16 at 16:59 Ibuprofen (Advil) 600 mg Q8HP PRN PO PAIN; Start 09/08/16 at 21:45; Stop at 21:44 Lidocaine (Lidoderm Patch) 2 patch DAILY TD Last administered on 09/07/16 09: 58; Start 09/07/16 at 09:00; Stop 10/07/16 at 08:59 Loperamide HCl (Imodium) 2 mg ASDIRECTED PRN PO DIARRHEA; Start 09/07/16 at 17: 30; Stop 10/07/16 at 17:29 Magnesium Hydroxide (Milk Of Magnesia) 30 ml DAILYPRN PRN PO CONSTIPATION; Start 09/06/16 at 19:00; Stop 10/06/16 at 18:59 Non-Formulary Medication ( See Comment Field Below ) REMOVE LIDODERM PATCH DAILY@21 XX Last administered on 09/07/16 11:49; Start 09/07/16 at 21:00; Stop 10/07/16 at 20:59 Phenylephrine HCl (Neosynephrine 0.25% Nasal [place]) 2 spray Q4HP PRN NA NASAL CONGESTION; Start 09/08/16 at 11:30; Stop 10/08/16 at 11:29 Ramelteon (Rozerem) 8 mg QHS PRN PO SLEEP Last administered on 09/08/16 23:01 ; Start 09/08/16 at 11:30; Stop 10/08/16 at 11:29 Trazodone HCl (Desyrel) 50 mg QHSP PRN PO Insomnia Last administered on 21:10; Start 09/06/16 at 17:00; Stop 09/08/16 at 11:25; Status DC Allergies Coded Allergies: No Known Allergies (Unverified , 03/22/15) KEO WARD MD Sep 09, 2016 17:39
[2016-09-09 18:00] VITALS: BP 138/78
[2016-09-09] MEDS: hydrOXYzine 25 MG TAB PO PRN (20:06)
[2016-09-09] MEDS: fluvoxaMINE MALEATE 50 MG TAB PO SCH (20:06)
[2016-09-09] MEDS: **NOTE PATIENT COMMENT** MISC XX SCH (20:08)
[2016-09-09] MEDS: RAMELTEON 8 MG TAB (ROZEREM) PO PRN (21:55)
[2016-09-10 06:00] VITALS: BP 124/71
[2016-09-10] MEDS: LIDOCAINE 5% (LIDODERM) PATCH TD SCH (08:13)
[2016-09-10] MEDS: DOXYCYCLINE HYCLATE 100 MG TAB PO SCH ×2 (08:15→20:43)
[2016-09-10] MEDS: ERYTHROMYCIN 2 % GEL 30GM TOP PRN ×2 (08:16→20:44)
[2016-09-10] MEDS: IBUPROFEN 600 MG TAB PO PRN (14:19)
[2016-09-10 18:00] VITALS: BP 129/61
[2016-09-10] MEDS ORDERED: IBUPROFEN 400 MG TAB PO PRN (18:00)
[2016-09-10] MEDS: fluvoxaMINE MALEATE 50 MG TAB PO SCH (20:43)
[2016-09-10] MEDS: **NOTE PATIENT COMMENT** MISC XX SCH (20:46)
--- NOTE | 2016-09-10 21:06 | MHIPNPDOC ---
[facility] Progress Note Progress Note DATE OF SERVICE: 09/10/16 INTERVAL HISTORY: Medication Side effects: patient denies any side effects from his current medications Behavior/events: no events, patient states he is feeling well. Describes that he is excited to go to rehab soon. Group Attendance: has attended groups fairly frequently Psychiatric Symptoms: reports that his anxiety and depression are much better controlled and that his sleeping pattern is normalized. He describes that he feels more control his emotions and has ceased having cravings for opioids. Describes back pain is still present but much less disturbing. VITAL SIGNS: See below. NEW TEST RESULTS: See below CURRENT MEDICATIONS: See below. MENTAL STATUS EXAMINATION: General: Well dressed with good hygiene Speech: Spontaneous and fluid Thought processes: Linear and logical Thought content: future orientated Abstract reasoning, and computation: Intact Description of associations: Intact Description of abnormal or psychotic thoughts:Denies any suicidal or homicidal ideation. Denies any auditory or visual hallucinations. Does not appear to be responding to internal stimuli. Does not appear to be endorsing any bizarre or paranoid ideation. Judgment: improving Insight: improving Orientation: Alert and orientated 3 Recent and remote memory: Intact Attention span and concentration: Intact Fund of knowledge: Adequate Mood: "great" Affect: Euthymic with a full range DIAGNOSES: 1. Unspecified depressive disorder. 2. Unspecified anxiety disorder. 3. Poly substance use disorder, severe, withdrawal. ASSESSMENT: improving MANAGEMENT PLAN: Medications: increase Luvox to 100 mg nightly, continue Rozerem and opioid withdrawal protocols Psychotherapy: encourage group attendance Social: discharge to rehab next week Misc: ibuprofen for back pain Disposition: The patient will need of further inpatient stay to address disposition needs medication titrations. TIME SPENT: 15 minutes. Vital Signs Vital Signs Date Time Temp Pulse Resp B/P (MAP) Pulse Ox O2 Delivery O2 Flow Rate FiO2 09/10/16 18:00 98.9 90 18 129/61 (83) 09/09/16 07:04 Room Air 09/06/16 18:16 100 Current Medications Current Medications Acetaminophen (Tylenol Tab) 650 mg Q6HP PRN PO HEADACHE or DISCOMFORT; Start at 19:00; Stop 10/06/16 at 18:59 Al Hydrox/Mg Hydrox/Simethicone (Mylanta) 30 ml Q4HP PRN PO HEARTBURN/ INDIGESTION; Start 09/06/16 at 19:00; Stop 10/06/16 at 18:59 Buprenorphine/ Naloxone (Suboxone 8/2mg) 1 tab ASDIRECTED SL ; Start 09/07/16 at 17:30; Stop 09/07/16 at 18:45; Status DC Clonidine HCl (Catapres) 0.1 mg Q6HP PRN PO Opiate withdrawal Last administered on 09/07/16 21:07; Start 09/06/16 at 17:00; Stop 10/06/16 at 16:59 Doxycycline Hyclate (Vibramycin) 100 mg BID PO Last administered on 09/10/16 20 :43; Start 09/06/16 at 21:00; Stop 09/13/16 at 20:59 Erythromycin (Erythromycin) APPLY TO AREAS OF ACNE BIDP PRN TOP Acne breakout Last administered on 09/10/16 20:44; Start 09/06/16 at 18:00; Stop 10/06/16 at 17:59 Fluvoxamine Maleate (Luvox) 50 mg QHS PO Last administered on 09/09/16 20:06; Start 09/08/16 at 21:00; Stop 09/10/16 at 17:56; Status DC Fluvoxamine Maleate (Luvox) 100 mg QHS PO Last administered on 09/10/16 20:43; Start 09/10/16 at 21:00; Stop 10/10/16 at 20:59 Home Med (Med Rec Complete!) ASDIRECTED XX ; Start 09/06/16 at 17:15; Stop at 17:15; Status DC Hydroxyzine HCl (Atarax) 25 mg QIDP PRN PO anxiety Last administered on 20:06; Start 09/06/16 at 17:00; Stop 10/06/16 at 16:59 Ibuprofen (Advil) 400 mg Q6HP PRN PO PAIN; Start 09/10/16 at 18:00; Stop at 17:59 Ibuprofen (Advil) 600 mg Q8HP PRN PO PAIN Last administered on 09/10/16 14:19; Start 09/08/16 at 21:45; Stop 10/08/16 at 21:44 Lidocaine (Lidoderm Patch) 2 patch DAILY TD Last administered on 09/07/16 09: 58; Start 09/07/16 at 09:00; Stop 10/07/16 at 08:59 Loperamide HCl (Imodium) 2 mg ASDIRECTED PRN PO DIARRHEA; Start 09/07/16 at 17: 30; Stop 10/07/16 at 17:29 Magnesium Hydroxide (Milk Of Magnesia) 30 ml DAILYPRN PRN PO CONSTIPATION; Start 09/06/16 at 19:00; Stop 10/06/16 at 18:59 Non-Formulary Medication ( See Comment Field Below ) REMOVE LIDODERM PATCH DAILY@21 XX Last administered on 09/07/16 11:49; Start 09/07/16 at 21:00; Stop 10/07/16 at 20:59 Phenylephrine HCl (Neosynephrine 0.25% Nasal [place]) 2 spray Q4HP PRN NA NASAL CONGESTION; Start 09/08/16 at 11:30; Stop 10/08/16 at 11:29 Ramelteon (Rozerem) 8 mg QHS PRN PO SLEEP Last administered on 09/09/16 21:55; Start 09/08/16 at 11:30; Stop 10/08/16 at 11:29 Trazodone HCl (Desyrel) 50 mg QHSP PRN PO Insomnia Last administered on 21:10; Start 09/06/16 at 17:00; Stop 09/08/16 at 11:25; Status DC Allergies Coded Allergies: No Known Allergies (Unverified , 03/22/15) GME ATTESTATION My preceptor for this patient encounter was physically present in the building during the encounter and was fully available. As needed, all aspects of the patient interview, examination, medical decision making process, and medical care plan development were reviewed and approved by the preceptor. Preceptor is aware and concurs with the plan as stated in the body of this note and will attest to such by his/her cosignature. RALEIGH CONNOLLY DO Sep 10, 2016 21:06
[2016-09-10] MEDS: RAMELTEON 8 MG TAB (ROZEREM) PO PRN (23:07)
[2016-09-11] MEDS: PHENYLEPHRINE 0.25% NASAL SPR 15 ML PRN (01:09)
[2016-09-11 06:12] VITALS: BP 142/88
[2016-09-11] MEDS: ERYTHROMYCIN 2 % GEL 30GM TOP PRN ×2 (08:22→23:28)
[2016-09-11] MEDS: DOXYCYCLINE HYCLATE 100 MG TAB PO SCH ×2 (08:25→20:37)
[2016-09-11] MEDS: LIDOCAINE 5% (LIDODERM) PATCH TD SCH (09:00)
[2016-09-11] MEDS: IBUPROFEN 600 MG TAB PO PRN (17:00)
[2016-09-11 18:13] VITALS: BP 135/77
[2016-09-11] MEDS: MAALOX 30 ML SUSP *UDC PO PRN (19:34)
[2016-09-11] MEDS: **NOTE PATIENT COMMENT** MISC XX SCH (20:35)
[2016-09-11] MEDS: RAMELTEON 8 MG TAB (ROZEREM) PO PRN (20:37)
[2016-09-11] MEDS: fluvoxaMINE MALEATE 50 MG TAB PO SCH (21:00)
[2016-09-11] MEDS ORDERED: traZODone 50 MG TAB PO PRN (21:00)
[2016-09-12] MEDS: IBUPROFEN 600 MG TAB PO PRN ×3 (01:38→18:02)
[2016-09-12 06:00] VITALS: BP 126/70
[2016-09-12] MEDS: MAALOX 30 ML SUSP *UDC PO PRN (07:42)
[2016-09-12] MEDS: LIDOCAINE 5% (LIDODERM) PATCH TD SCH (08:18)
[2016-09-12] MEDS: ERYTHROMYCIN 2 % GEL 30GM TOP PRN ×2 (08:20→20:04)
[2016-09-12] MEDS: DOXYCYCLINE HYCLATE 100 MG TAB PO SCH ×2 (08:20→20:04)
[2016-09-12 18:00] VITALS: BP 131/65
[2016-09-12] MEDS ORDERED: traZODone 100 MG TAB PO PRN (18:45)
[2016-09-12] MEDS: fluvoxaMINE MALEATE 50 MG TAB PO SCH (20:04)
[2016-09-12] MEDS: RAMELTEON 8 MG TAB (ROZEREM) PO PRN (20:11)
[2016-09-12] MEDS: **NOTE PATIENT COMMENT** MISC XX SCH (20:12)
[2016-09-13] MEDS: PHENYLEPHRINE 0.25% NASAL SPR 15 ML PRN ×2 (01:06→22:35)
[2016-09-13] MEDS: hydrOXYzine 25 MG TAB PO PRN ×2 (02:00→23:17)
[2016-09-13] MEDS: IBUPROFEN 600 MG TAB PO PRN (02:00)
[2016-09-13 06:37] VITALS: BP 131/62
[2016-09-13] MEDS: DOXYCYCLINE HYCLATE 100 MG TAB PO SCH ×2 (08:11→21:22)
[2016-09-13] MEDS: ERYTHROMYCIN 2 % GEL 30GM TOP PRN ×2 (08:11→21:23)
[2016-09-13] MEDS: LIDOCAINE 5% (LIDODERM) PATCH TD SCH (08:12)
[2016-09-13] MEDS ORDERED: IBUPROFEN 800 MG TAB PO STA (12:01)
[2016-09-13] MEDS ORDERED: MIRT15TA3 PO ×2 (13:36→15:06)
[2016-09-13] MEDS ORDERED: ROZE8TAB9 PO ×2 (14:20→15:06)
[2016-09-13] MEDS ORDERED: FLUV50TA PO ×2 (14:20→15:06)
[2016-09-13] MEDS ORDERED: IBUP80TA PO ×2 (14:23→15:06)
[2016-09-13 18:00] VITALS: BP 120/68
[2016-09-13] MEDS: **NOTE PATIENT COMMENT** MISC XX SCH (21:00)
[2016-09-13] MEDS ORDERED: MIRTAZAPINE 15 MG TAB PO SCH (21:00)
[2016-09-13 21:02] VITALS: BP 120/68
--- NOTE | 2016-09-13 21:06 | IPN ---
DATE: 09/13/2016 Evaluated 31-year-old male who reported no medication side effects, and he said that he has been feeling well. He stated that he has been sleeping well, has good appetite, and he is happy about going into rehabilitation (rehab) tomorrow. He has been attending groups and reported that his anxiety and depression are at a lower level than when he was admitted. He stated that groups and medications have helped him to feel more in control of his emotions and has not had any cravings for opioids. However, he still describes very strong pain in his back, and he said he asked for an increase in his ibuprofen dose, so it was increased from 600 mg to 800 mg by mouth twice a day. MENTAL STATUS EXAMINATION: Alert, oriented times three, cooperative with interview, with good eye contact and good rapport. His mood and affect are normal. Mood is not depressed, affect is euthymic, full range and appropriate. His thought process is linear, coherent. His speech is spontaneous and fluid. His thought content is goal oriented. His abstract reasoning and computation are intact. He has no loosening of associations. He denies suicidal, homicidal ideation and he denies delusional thoughts and auditory or visual hallucinations. He is not responding to internal stimuli, and does not endorse bizarre or paranoid ideation. His judgment and insight have improved, his memory recent and remote is intact. His attention span and concentration are good. DIAGNOSIS: 1. Unspecified depressive disorder. 2. Unspecified anxiety disorder. 3. Polysubstance use disorder, severe. MANAGEMENT PLAN: The patient will be transferred tomorrow to [facility]. He will be discharged and recommended to continue the same medications that he has been receiving at the inpatient mental health unit. At the time of the interview, the patient was not a danger to self or others. Will followup.
[2016-09-13] MEDS: fluvoxaMINE MALEATE 50 MG TAB PO SCH (21:22)
[2016-09-13] MEDS: RAMELTEON 8 MG TAB (ROZEREM) PO PRN (21:22)
[2016-09-13] MEDS ORDERED: IBUPROFEN 800 MG TAB PO PRN (21:45)
[2016-09-14 06:46] VITALS: BP 119/68
[2016-09-14] MEDS: DOXYCYCLINE HYCLATE 100 MG TAB PO SCH (07:39)
[2016-09-14] MEDS: ERYTHROMYCIN 2 % GEL 30GM TOP PRN (07:39)
[2016-09-14] MEDS: LIDOCAINE 5% (LIDODERM) PATCH TD SCH (07:43)
--- NOTE | 2016-09-14 22:11 | MHDSPDOC ---
[facility] Discharge Summary Discharge Summary DATE OF ADMISSION: September 06, 2016 at 17:20 DATE OF DISCHARGE: Sep 14, 2016 at 08:40 DISCHARGE DIAGNOSES: 1. Major Depressive Disorder, chronic, moderate. 2. Opioid use disorder REASON FOR ADMISSION: The patient 31-year-old man presented to [facility] with passive suicidal ideation describing that multiple stressors including caring for his ailing mother and her boyfriend as well as isolate to father that begun taking severe toll on his mood and sleep. Describe that he'd had difficulty caring for them and attending to his employment and thus found himself unemployed with additional difficulties in the isolated area of [facility]. He described that he additionally had difficulties misusing black-market prescription opioids since 9 years ago when he had had a injury. Describe that he became rapidly addicted to these and subsequently has become very tearful and anxious thinking about his family members, fearing that they will and leave him. He describes difficulty with intermittent depressive symptoms that do not mate full criteria for clinical depression as well as generalized anxiety. CONSULTANTS INVOLVED: None TREATMENT AND PROGRESS ON THE UNIT : The patient was able to withdraw from opioids succesfull and showed a good response to medications. He was able to verbalize his longstanding history of anger towards his mother and several family issues. He was compliant with treatment, attended groups and was motivated for change. He was able to go to Rehab to [facility]. HOSPITAL COURSE: As above. DISCHARGE ASSESSMENT: Pts mood and affect improved. He was not suicidal or homicidal upon discharge. His judgement, insight and impulse control were improved. he was not a danger to self or others. MENTAL STATUS EXAMINATION ON DISCHARGE: Patient is a 31-year old male, who is alert, oriented, cooperative, with good eye contact and good hygiene. Speech is normal. Language skills are fair. Thought processes including: Intact. Thought content: Goal directed.. Abstract reasoning, and computation: Fair. Description of associations: Not loose. Description of abnormal or psychotic thoughts: Not delusional. Not hallucinating. Denied suicidal and homicidal ideation. Judgment: Improved. Insight: Improved. Orientation to Oriented x 3. Recent and remote memory: Intact. Attention span and concentration: Fair. Language: Normal. Fund of knowledge: Adequate. Mood: "Im nervous but Im OK". Affect: Full range, appropriate. MEDICATIONS ON DISCHARGE: - Fluvoxamine 100 mgs. PO QHS for anxiety/depression - Rozerem 8 mgs. PO QHS for insomnia - Remeron 30 mgs. PO QHS for insomnia The patient was discharged to a Rehab Program. They will decide if they continue the patient on the same medications or if they prefer to change them. PLAN/FOLLOWUP ARRANGEMENTS: Patient was discharged to [facility] Rehab program. The amount of time spent in the coordination of care for this patient was approximately 35 minutes. Vital Signs/I&Os Vital Signs Date Time Temp Pulse Resp B/P (MAP) Pulse Ox O2 Delivery O2 Flow Rate FiO2 09/14/16 06:46 98.4 74 16 119/68 (85) 09/13/16 21:02 100 Room Air Medications Scheduled Clindamycin Phosphate (Clindamax) 1 % Gel, 1 DOSE TOP BID, (Reported) Doxycycline Hyclate (Doxycycline Hyclate) 100 Mg Cap, 100 MG PO BID for acne, ( Reported) Fluvoxamine Maleate (Fluvoxamine Maleate) 50 Mg Tab, 100 MG PO QHS for MOOD, #1 Mirtazapine (Mirtazapine) 15 Mg Tab, 30 MG PO QHS for Insomnia/depression, #1 Scheduled PRN Hydroxyzine Pamoate (Hydroxyzine Pamoate) 25 Mg Cap, 25 MG PO QID PRN for WITHDRAWAL SYMPTOMS, (Reported) Ibuprofen (Ibuprofen) 800 Mg Tab, 800 MG PO Q6HP PRN for PAIN, #1 Ramelteon (Rozerem) 8 Mg Tab, 8 MG PO QHS PRN for SLEEP, #1 [Erythromycin 2%] , 1 DOSE TOP BID PRN for ACNE BREAKOUT, (Reported) Allergies Coded Allergies: No Known Allergies (Unverified , 03/22/15) KEO WARD MD Sep 14, 2016 22:11
== END 2016-09-14 08:40 | DRG 751 ==
LOC: M ED 17:18 → M ED INP 17:20 → M PSY 18:11
PROVIDERS: ADMIT Psychiatry & Neurology Psychiatry; ATTEND Psychiatry & Neurology Psychiatry
DX: F32.1 Major depressive disorder, single episode, moderate (principal); F11.90 Opioid use, unspecified, uncomplicated; Z79.899 Other long term (current) drug therapy; M54.5 Low back pain; L71.9 Rosacea, unspecified; M54.2 Cervicalgia

== ENCOUNTER → 2017-01-16 | Outpatient (CLI) | payer OTHER ==
[~2017-01-16] MED LIST changes: +CLIN1GEL5 TOP; +ERYTHROMYCIN 2% TOP; +FLUV50TA PO; +HYDR1CAP25 PO; +IBUP80TA PO; -LORA-376 PO; +LORA0.5T11 PO; -MINO100C PO; +MINO100C4 PO; +MIRT15TA3 PO; +PARO10TA3 PO; -PARO10TA84 PO; +PAXI20TA29 PO; -PAXI20TA3 PO; +ROZE8TAB16 PO; +TRAZ-136 PO; -TRAZ100T4 PO; +TRAZ50TA11 PO; -TRAZ50TA4 PO; -ULTR37.52 PO; +ULTR37.54 PO
--- NOTE | 2017-01-17 02:27 | REP ---
Clinical: Contusion . Technique: AP, lateral, bilateral oblique views right ankle . Findings: No acute fracture or dislocation. Skeletal structures and joint spaces are intact and normal. Ankle mortise appears stable. No subcutaneous emphysema or radiodense foreign body. Impression: Normal age appropriate right ankle radiograph series. Signed by Margarito Dewey MD 01/17/2017 02:18 A
--- NOTE | 2017-01-17 02:28 | REP ---
Clinical: Trauma. Contusion. Technique: AP, lateral, bilateral oblique views left foot . Findings: The osseous structures and joint spaces are intact and normal. There is no evidence for acute fracture or dislocation. Surrounding soft tissues are unremarkable. No subcutaneous emphysema or radiodense foreign body. Impression: Age-appropriate left foot radiographs. No acute fracture or dislocation. Signed by Margarito Dewey MD 01/17/2017 02:19 A
== END ==
LOC: M WUC 17:42
PROVIDERS: ATTEND Physician Assistant
DX: S93.421A Sprain of deltoid ligament of right ankle, initial encounter (principal); S90.32XA Contusion of left foot, initial encounter; X58.XXXA Exposure to other specified factors, initial encounter; Y92.9 Unspecified place or not applicable

== ENCOUNTER 2017-06-15 22:13 | Emergency (ER) | payer OTHER, SELFPAY ==
[2017-06-15] MEDS: NS 1,000 ML IV (23:26)
[2017-06-15 23:40] LABS: HEMATOCRIT 40.8 % (42.0-52.0); MEAN CORPUSCULAR HEMOGLOBIN 30.8 pg (27.0-33.0); MEAN CORPUSCULAR HGB CONC 34.3 g/dl (32.0-36.5); MEAN CORPUSCULAR VOLUME 89.7 fl (80.0-96.0); PLATELET COUNT, AUTOMATED 334 10^3/uL (150-450); RED BLOOD COUNT 4.55 10^6/uL (4.30-6.10); RED CELL DISTRIBUTION WIDTH 12.5 % (11.5-14.5); WHITE BLOOD COUNT 11.6 10^3/uL (4.0-10.0)
[2017-06-16] LABS: AMPHETAMINES LEVEL URINE NEGATIVE (NEGATIVE); BARBITURATES URINE NEGATIVE (NEGATIVE); BENZODIAZEPINES URINE NEGATIVE (NEGATIVE); CANNABINOIDS URINE NEGATIVE (NEGATIVE); COCAINE METABOLITE URINE NEGATIVE (NEGATIVE); METHADONE URINE NEGATIVE (NEGATIVE); OPIATES URINE NEGATIVE (NEGATIVE); PHENCYCLIDINE URINE NEGATIVE (NEGATIVE)
[2017-06-16 00:11] LABS: ALBUMIN/GLOBULIN RATIO 1.18 (1.00-1.93); ALKALINE PHOSPHATASE 77 U/L (45-117); ALT/SGPT 55 U/L (12-78); ANION GAP 8 MEQ/L (8-16); AST/SGOT 26 U/L (7-37); BILIRUBIN,DIRECT < 0.1 MG/DL (0.0-0.2); BILIRUBIN,TOTAL 0.2 MG/DL (0.2-1.0); BLOOD UREA NITROGEN 18 MG/DL (7-18); CALCIUM LEVEL 8.5 MG/DL (8.5-10.1); CARBON DIOXIDE LEVEL 26 MEQ/L (21-32); CHLORIDE LEVEL 105 MEQ/L (98-107); CREATININE FOR GFR 1.28 MG/DL (0.70-1.30); GLOMERULAR FILTRATION RATE > 60.0 (>60); GLUCOSE, FASTING 97 MG/DL (70-100); POTASSIUM SERUM 4.6 MEQ/L (3.5-5.1); SALICYLATE LEVEL 1.8 MG/DL (5.0-30.0); SODIUM LEVEL 139 MEQ/L (136-145); TOTAL PROTEIN 7.4 GM/DL (6.4-8.2)
[2017-06-16 00:15] LABS: ACETAMINOPHEN LEVEL < 2.0 UG/ML (10.0-30.0); ETHYL ALCOHOL (ETHANOL) < 0.003 % (0.000-0.010)
== END 2017-06-16 05:51 | disposition home or self-care (01) ==
LOC: M ED 06-16 05:51
DX: F11.10 Opioid abuse, uncomplicated (principal); G40.89 Other seizures; R00.0 Tachycardia, unspecified; F32.9 Major depressive disorder, single episode, unspecified; F41.9 Anxiety disorder, unspecified; M54.9 Dorsalgia, unspecified; L70.9 Acne, unspecified; Z87.891 Personal history of nicotine dependence; Z79.899 Other long term (current) drug therapy; Z79.2 Long term (current) use of antibiotics
CPT/HCPCS: 80320

== ENCOUNTER → 2017-07-22 | Outpatient (CLI) | payer OTHER ==
[2017-07-22 14:21] LABS: HEMATOCRIT 39.7 % (42.0-52.0); HEMOGLOBIN 13.6 g/dl (13.5-17.5); MEAN CORPUSCULAR HEMOGLOBIN 30.3 pg (27.0-33.0); MEAN CORPUSCULAR HGB CONC 34.3 g/dl (32.0-36.5); MEAN CORPUSCULAR VOLUME 88.4 fl (80.0-96.0); PLATELET COUNT, AUTOMATED 269 10^3/uL (150-450); RED BLOOD COUNT 4.49 10^6/uL (4.30-6.10); RED CELL DISTRIBUTION WIDTH 11.9 % (11.5-14.5); WHITE BLOOD COUNT 5.5 10^3/uL (4.0-10.0)
[2017-07-22 14:54] LABS: ALBUMIN 4.3 GM/DL (3.2-5.2); ALBUMIN/GLOBULIN RATIO 1.26 (1.00-1.93); ALKALINE PHOSPHATASE 69 U/L (45-117); ALT/SGPT 40 U/L (12-78); ANION GAP 5 MEQ/L (8-16); AST/SGOT 26 U/L (7-37); BILIRUBIN,TOTAL 0.3 MG/DL (0.2-1.0); BLOOD UREA NITROGEN 20 MG/DL (7-18); CARBON DIOXIDE LEVEL 30 MEQ/L (21-32); CHLORIDE LEVEL 106 MEQ/L (98-107); CHOLESTEROL LEVEL 191 MG/DL (<200); CHOLESTEROL RISK RATIO 3.897 (<5); CREATININE FOR GFR 1.18 MG/DL (0.70-1.30); GLOMERULAR FILTRATION RATE > 60.0 (>60); GLUCOSE, FASTING 86 MG/DL (70-100); HDL CHOLESTEROL 49 MG/DL (>40); LDL CHOLESTEROL 116.8 MG/DL (<100); NON-HDL-C 142 MG/DL; POTASSIUM SERUM 4.7 MEQ/L (3.5-5.1); SODIUM LEVEL 141 MEQ/L (136-145); TOTAL PROTEIN 7.7 GM/DL (6.4-8.2); TRIGLYCERIDES LEVEL 126 MG/DL (<150)
== END ==
LOC: M LAB 13:35
DX: E78.2 Mixed hyperlipidemia (principal); R53.83 Other fatigue; I10 Essential (primary) hypertension
CPT/HCPCS: 84443

== ENCOUNTER → 2017-07-22 | Outpatient (CLI) | payer OTHER ==
[2017-07-22 14:21] LABS: HEMOGLOBIN 13.4 g/dl (13.5-17.5); MEAN CORPUSCULAR HEMOGLOBIN 30.7 pg (27.0-33.0); MEAN CORPUSCULAR HGB CONC 34.4 g/dl (32.0-36.5); MEAN CORPUSCULAR VOLUME 89.2 fl (80.0-96.0); PLATELET COUNT, AUTOMATED 252 10^3/uL (150-450); RED BLOOD COUNT 4.37 10^6/uL (4.30-6.10); WHITE BLOOD COUNT 5.5 10^3/uL (4.0-10.0)
[2017-07-22 14:45] LABS: ALBUMIN 4.2 GM/DL (3.2-5.2); ALKALINE PHOSPHATASE 70 U/L (45-117); ALT/SGPT 45 U/L (12-78); ANION GAP 5 MEQ/L (8-16); AST/SGOT 28 U/L (7-37); BILIRUBIN,TOTAL 0.3 MG/DL (0.2-1.0); BLOOD UREA NITROGEN 20 MG/DL (7-18); CARBON DIOXIDE LEVEL 29 MEQ/L (21-32); CHLORIDE LEVEL 106 MEQ/L (98-107); CREATININE FOR GFR 1.15 MG/DL (0.70-1.30); GLOMERULAR FILTRATION RATE > 60.0 (>60); GLUCOSE, FASTING 86 MG/DL (70-100); POTASSIUM SERUM 4.5 MEQ/L (3.5-5.1); SODIUM LEVEL 140 MEQ/L (136-145); TOTAL PROTEIN 7.7 GM/DL (6.4-8.2)
[2017-07-22 15:01] LABS: HEPATITIS B SURFACE ANTIGEN NEGATIVE (NEGATIVE)
[2017-07-22 15:31] LABS: HIV 1&2 SCREEN CENTAUR NEGATIVE (NEGATIVE)
[2017-07-22 16:03] LABS: CHLAMYDIA DNA AMPLIFICATION NEGATIVE (NEGATIVE); GC DNA AMPLIFICATION NEGATIVE (NEGATIVE)
== END ==
LOC: M LAB 13:28
DX: F11.20 Opioid dependence, uncomplicated (principal)
CPT/HCPCS: 93005

== ENCOUNTER → 2017-11-03 | Outpatient (CLI) | payer OTHER ==
[2017-11-03 11:20] LABS: BASO % 0.7 % (0.0-1.0); EOS # 0.5 10^3/uL (0.0-0.50); EOS % 8.9 % (0.0-3.0); HEMATOCRIT 34.7 % (42.0-52.0); HEMOGLOBIN 11.7 g/dl (13.5-17.5); IMMATURE GRANULOCYTE % 0.4 % (0-3.0); LYMPH # 1.6 10^3/uL (1.5-4.5); LYMPH % 29.9 % (24.0-44.0); MEAN CORPUSCULAR HEMOGLOBIN 30.6 pg (27.0-33.0); MEAN CORPUSCULAR HGB CONC 33.7 g/dl (32.0-36.5); MEAN CORPUSCULAR VOLUME 90.8 fl (80.0-96.0); MONO # 0.5 10^3/uL (0.0-0.8); MONO % 9.2 % (0.0-5.0); NEUTROPHILS # 2.8 10^3/uL (1.8-7.7); NEUTROPHILS % 50.9 % (36.0-66.0); PLATELET COUNT, AUTOMATED 303 10^3/uL (150-450); RED BLOOD COUNT 3.82 10^6/uL (4.30-6.10); RED CELL DISTRIBUTION WIDTH 13.3 % (11.5-14.5); WHITE BLOOD COUNT 5.4 10^3/uL (4.0-10.0)
[2017-11-03 11:22] LABS: APPEARANCE, URINE HAZY (CLEAR); BACTERIA, URINE AUTO NEGATIVE (NEGATIVE); BILIRUBIN, URINE AUTO NEGATIVE (NEGATIVE); BLOOD, URINE BLOOD NEGATIVE (NEGATIVE); COLOR, URINE YELLOW (YELLOW); GLUCOSE, URINE (UA) AUTO NEGATIVE (NEGATIVE); KETONE, URINE AUTO NEGATIVE (NEGATIVE); LEUKOCYTE ESTERASE, URINE AUTO NEGATIVE (NEGATIVE); NITRITE, URINE AUTO NEGATIVE (NEGATIVE); PROTEIN, URINE AUTO NEGATIVE (NEGATIVE); RBC, URINE AUTO 0 /HPF (0-3); SPECIFIC GRAVITY URINE AUTO 1.006 (1.002-1.035); SQUAMOUS EPITHELIAL CELL UR AU 0 /HPF (0-6); UROBILINOGEN, URINE AUTO 0.2 mg/dL (0.0-2.0); WBC, URINE AUTO 0 /HPF (0-3)
[2017-11-03 11:54] LABS: ALBUMIN 3.7 GM/DL (3.2-5.2); ALBUMIN/GLOBULIN RATIO 1.12 (1.00-1.93); ALKALINE PHOSPHATASE 64 U/L (45-117); ALT/SGPT 75 U/L (12-78); ANION GAP 4 MEQ/L (8-16); AST/SGOT 57 U/L (7-37); BILIRUBIN,TOTAL 0.2 MG/DL (0.2-1.0); BLOOD UREA NITROGEN 29 MG/DL (7-18); CALCIUM LEVEL 8.9 MG/DL (8.5-10.1); CARBON DIOXIDE LEVEL 32 MEQ/L (21-32); CHLORIDE LEVEL 104 MEQ/L (98-107); GLOMERULAR FILTRATION RATE > 60.0 (>60); GLUCOSE, FASTING 75 MG/DL (70-100); POTASSIUM SERUM 4.4 MEQ/L (3.5-5.1); SODIUM LEVEL 140 MEQ/L (136-145)
[2017-11-04 09:39] LABS: HEPATITIS A IgG TOTAL Positive (Negative)
[2017-11-04 10:07] LABS: HEPATITIS B SURFACE ANTIBODY POSITIVE (POSITIVE)
[2017-11-04 10:17] LABS: HEPATITIS B SURFACE ANTIGEN NEGATIVE (NEGATIVE)
[2017-11-04 10:34] LABS: HEPATITIS C VIRUS ABY INDEX 0.4 INDEX (<0.8)
== END ==
LOC: M LAB 10:29
DX: F11.21 Opioid dependence, in remission (principal)
CPT/HCPCS: 80053

== ENCOUNTER 2018-01-13 11:30 | Emergency (ER) | payer OTHER ==
[2018-01-13] MEDS: NS 1,000 ML IV (12:27)
[2018-01-13] MEDS: KETOROLAC 30 MG/ML VIAL (J1885) IV (12:35)
[2018-01-13 12:38] LABS: BASO % 0.5 % (0.0-1.0); EOS # 0.9 10^3/uL (0.0-0.50); EOS % 13.8 % (0.0-3.0); HEMATOCRIT 35.8 % (42.0-52.0); HEMOGLOBIN 11.8 g/dl (13.5-17.5); IMMATURE GRANULOCYTE % 0.2 % (0-3.0); LYMPH % 31.6 % (24.0-44.0); MEAN CORPUSCULAR HEMOGLOBIN 29.9 pg (27.0-33.0); MEAN CORPUSCULAR VOLUME 90.6 fl (80.0-96.0); MONO # 0.7 10^3/uL (0.0-0.8); NEUTROPHILS # 2.7 10^3/uL (1.8-7.7); NEUTROPHILS % 42.9 % (36.0-66.0); PLATELET COUNT, AUTOMATED 237 10^3/uL (150-450); RED BLOOD COUNT 3.95 10^6/uL (4.30-6.10); RED CELL DISTRIBUTION WIDTH 11.6 % (11.5-14.5); WHITE BLOOD COUNT 6.2 10^3/uL (4.0-10.0)
[2018-01-13 13:02] LABS: LACTIC ACID SEPSIS PROTOCOL 1.4 MMOL/L (0.4-2.0)
[2018-01-13 13:02] LABS: ALBUMIN 3.6 GM/DL (3.2-5.2); ALBUMIN/GLOBULIN RATIO 1.06 (1.00-1.93); ALKALINE PHOSPHATASE 78 U/L (45-117); ALT/SGPT 68 U/L (12-78); ANION GAP 7 MEQ/L (8-16); AST/SGOT 41 U/L (7-37); BILIRUBIN,DIRECT < 0.1 MG/DL (0.0-0.2); BILIRUBIN,TOTAL 0.2 MG/DL (0.2-1.0); BLOOD UREA NITROGEN 21 MG/DL (7-18); CALCIUM LEVEL 8.5 MG/DL (8.5-10.1); CARBON DIOXIDE LEVEL 30 MEQ/L (21-32); CHLORIDE LEVEL 104 MEQ/L (98-107); CREATININE FOR GFR 1.07 MG/DL (0.70-1.30); GLOMERULAR FILTRATION RATE > 60.0 (>60); GLUCOSE, FASTING 79 MG/DL (70-100); LIPASE 100 U/L (73-393); POTASSIUM SERUM 4.6 MEQ/L (3.5-5.1); SODIUM LEVEL 141 MEQ/L (136-145)
[2018-01-13] MEDS ORDERED: ISOVUE-370 76% 100ML VIAL (Q9967) As Ordered (13:05)
[2018-01-13 14:01] LABS: KETONE, URINE AUTO RFX NEGATIVE (NEGATIVE); LEUKOCYTE ESTERASE UR AUTO RFX NEGATIVE (NEGATIVE); NITRITE, URINE AUTO RFX NEGATIVE (NEGATIVE); RBC, URINE AUTO RFX 0 /HPF (0-3); SPECIFIC GRAVITY UR AUTO RFX 1.028 (1.002-1.035); SQUAM EPITHELIAL CELL UR AURFX 0 /HPF (0-6); WBC, URINE AUTO RFX 0 /HPF (0-3)
[2018-01-13] MEDS: MAGNESIUM CITRATE 300 ML BTL PO (15:00)
== END 2018-01-13 15:06 | disposition home or self-care (01) ==
LOC: M ED 11:30
DX: K59.00 Constipation, unspecified (principal)
CPT/HCPCS: Q9967

== ENCOUNTER 2018-02-24 13:41 | Emergency (ER) | payer OTHER ==
[2018-02-24 15:41] LABS: BASO % 0.3 % (0.0-1.0); EOS # 0.3 10^3/uL (0.0-0.50); EOS % 4.7 % (0.0-3.0); HEMATOCRIT 39.1 % (42.0-52.0); IMMATURE GRANULOCYTE % 0.2 % (0-3.0); LYMPH # 1.5 10^3/uL (1.5-4.5); LYMPH % 25.5 % (24.0-44.0); MEAN CORPUSCULAR HEMOGLOBIN 29.4 pg (27.0-33.0); MEAN CORPUSCULAR HGB CONC 33.2 g/dl (32.0-36.5); MEAN CORPUSCULAR VOLUME 88.5 fl (80.0-96.0); MONO # 0.6 10^3/uL (0.0-0.8); MONO % 10.5 % (0.0-5.0); NEUTROPHILS # 3.5 10^3/uL (1.8-7.7); NEUTROPHILS % 58.8 % (36.0-66.0); PLATELET COUNT, AUTOMATED 325 10^3/uL (150-450); RED BLOOD COUNT 4.42 10^6/uL (4.30-6.10); RED CELL DISTRIBUTION WIDTH 12.1 % (11.5-14.5)
[2018-02-24 16:11] LABS: ALBUMIN 4.2 GM/DL (3.2-5.2); ALBUMIN/GLOBULIN RATIO 1.14 (1.00-1.93); ALKALINE PHOSPHATASE 101 U/L (45-117); ALT/SGPT 68 U/L (12-78); AMYLASE 62 U/L (25-115); ANION GAP 8 MEQ/L (8-16); AST/SGOT 56 U/L (7-37); BILIRUBIN,DIRECT < 0.1 MG/DL (0.0-0.2); BILIRUBIN,TOTAL 0.3 MG/DL (0.2-1.0); BLOOD UREA NITROGEN 20 MG/DL (7-18); CALCIUM LEVEL 9.5 MG/DL (8.5-10.1); CARBON DIOXIDE LEVEL 27 MEQ/L (21-32); CHLORIDE LEVEL 103 MEQ/L (98-107); CREATININE FOR GFR 1.14 MG/DL (0.70-1.30); GLOMERULAR FILTRATION RATE > 60.0 (>60); GLUCOSE, FASTING 84 MG/DL (70-100); LIPASE 82 U/L (73-393); POTASSIUM SERUM 4.9 MEQ/L (3.5-5.1); SODIUM LEVEL 138 MEQ/L (136-145); TOTAL PROTEIN 7.9 GM/DL (6.4-8.2)
== END 2018-02-24 16:44 | disposition home or self-care (01) ==
LOC: M ED 13:41
DX: R11.2 Nausea with vomiting, unspecified (principal)
CPT/HCPCS: 82150

== ENCOUNTER → 2018-06-09 | Outpatient (REF) | payer OTHER ==
[~2018-06-09] MED LIST changes: +ARIC1TAB PO; -CLON0.5T PO; +CLON0.5T8 PO; +HYDR1CAP25; +METH10TA2 PO; +MIRA3350 PO; +NAPR-885 PO; +PEPC1TAB5 PO; -TRAZ-136 PO; +TRAZ-160 PO; +TRAZ-163 PO; -TRAZ50TA11 PO; +VENL150C43 PO; +ZOFR4TAB14 PO
[2018-06-09 17:26] LABS: APPEARANCE, URINE CLEAR (CLEAR); BACTERIA, URINE AUTO NEGATIVE (NEGATIVE); BILIRUBIN, URINE AUTO NEGATIVE (NEGATIVE); BLOOD, URINE BLOOD NEGATIVE (NEGATIVE); COLOR, URINE YELLOW (YELLOW); GLUCOSE, URINE (UA) AUTO NEGATIVE (NEGATIVE); KETONE, URINE AUTO NEGATIVE (NEGATIVE); LEUKOCYTE ESTERASE, URINE AUTO TRACE (NEGATIVE); NITRITE, URINE AUTO NEGATIVE (NEGATIVE); PROTEIN, URINE AUTO NEGATIVE (NEGATIVE); RBC, URINE AUTO 3 /HPF (0-3); SPECIFIC GRAVITY URINE AUTO 1.018 (1.002-1.035); SQUAMOUS EPITHELIAL CELL UR AU 0 /HPF (0-6); UROBILINOGEN, URINE AUTO 0.2 mg/dL (0.0-2.0); WBC, URINE AUTO 1 /HPF (0-3)
== END ==
LOC: M SFHCPLAZ 16:48
PROVIDERS: ATTEND Nurse Practitioner Family
DX: R39.11 Hesitancy of micturition (principal)

== ENCOUNTER → 2018-07-10 | Outpatient (REF) | payer OTHER ==
[2018-07-10 18:02] LABS: BASO % 0.4 % (0.0-1.0); EOS # 0.2 10^3/uL (0.0-0.50); EOS % 1.7 % (0.0-3.0); HEMATOCRIT 45.3 % (42.0-52.0); HEMOGLOBIN 14.6 g/dl (13.5-17.5); LYMPH # 1.5 10^3/uL (1.5-4.5); LYMPH % 13.7 % (24.0-44.0); MEAN CORPUSCULAR HEMOGLOBIN 28.5 pg (27.0-33.0); MEAN CORPUSCULAR HGB CONC 32.2 g/dl (32.0-36.5); MEAN CORPUSCULAR VOLUME 88.3 fl (80.0-96.0); MONO # 0.9 10^3/uL (0.0-0.8); MONO % 8.4 % (0.0-5.0); NEUTROPHILS # 8.1 10^3/uL (1.8-7.7); NEUTROPHILS % 75.5 % (36.0-66.0); PLATELET COUNT, AUTOMATED 384 10^3/uL (150-450); RED BLOOD COUNT 5.13 10^6/uL (4.30-6.10); WHITE BLOOD COUNT 10.7 10^3/uL (4.0-10.0)
[2018-07-10 18:29] LABS: ALBUMIN 4.5 GM/DL (3.2-5.2); ALT/SGPT 41 U/L (12-78); BILIRUBIN,TOTAL 0.3 MG/DL (0.2-1.0); BLOOD UREA NITROGEN 23 MG/DL (7-18); CALCIUM LEVEL 8.9 MG/DL (8.5-10.1); CARBON DIOXIDE LEVEL 27 MEQ/L (21-32); CHLORIDE LEVEL 102 MEQ/L (98-107); CHOLESTEROL LEVEL 189 MG/DL (<200); CHOLESTEROL RISK RATIO 4.973 (<5); CREATININE FOR GFR 1.39 MG/DL (0.70-1.30); FREE T4 0.71 NG/DL (0.76-1.46); GLOMERULAR FILTRATION RATE > 60.0 (>60); GLUCOSE, FASTING 82 MG/DL (70-100); HDL CHOLESTEROL 38 MG/DL (>40); LDL CHOLESTEROL 122 MG/DL (<100); NON-HDL-C 151 MG/DL; POTASSIUM SERUM 4.5 MEQ/L (3.5-5.1); SODIUM LEVEL 136 MEQ/L (136-145); TOTAL 25(OH) VITAMIN D 32.9 NG/ML (30.0-100.0); TOTAL PROTEIN 8.1 GM/DL (6.4-8.2); TRIGLYCERIDES LEVEL 146 MG/DL (<150)
[2018-07-10 19:01] LABS: HEMOGLOBIN A1c 5.3 %
[2018-07-11 14:12] LABS: VITAMIN B12 LEVEL 583 PG/ML (247-911)
== END ==
LOC: M SFHCPLAZ 15:36
PROVIDERS: ATTEND Nurse Practitioner Family
DX: Z13.228 Encounter for screening for other metabolic disorders (principal); F32.9 Major depressive disorder, single episode, unspecified; E56.9 Vitamin deficiency, unspecified; R41.3 Other amnesia

== ENCOUNTER → 2018-08-03 | Outpatient (CLI) | payer OTHER ==
[~2018-08-03] MED LIST changes: -DULO30CA PO; +DULO30CA9 PO
--- NOTE | 2018-08-03 11:42 | ECGEPIP ---
Stationary ECG Study [facility] Test Date: 2018-08-03 Pat Name: ALYSHA STEARNS Department: Room: - Gender: M Landman: : 1985 Requested By: Rodrigue Marie Order Number: [id number] Reading MD: Luis Antonio Godinez Measurements Intervals [place] Rate: 73 P: 14 [place]: 172 QRS: -4 QRSD: 113 T: 0 QT: 387 QTc: 427 Interpretive Statements SINUS RHYTHM MODERATE INTRAVENTRICULAR CONDUCTION DELAY Electronically Signed On 08-03-2018 11:42:13 EDT by Luis Antonio Godinez
[2018-08-03 12:02] LABS: HEMATOCRIT 41.6 % (42.0-52.0); HEMOGLOBIN 13.4 g/dl (13.5-17.5); MEAN CORPUSCULAR HEMOGLOBIN 28.2 pg (27.0-33.0); MEAN CORPUSCULAR HGB CONC 32.2 g/dl (32.0-36.5); MEAN CORPUSCULAR VOLUME 87.6 fl (80.0-96.0); PLATELET COUNT, AUTOMATED 340 10^3/uL (150-450); RED BLOOD COUNT 4.75 10^6/uL (4.30-6.10)
[2018-08-03 12:27] LABS: ALT/SGPT 46 U/L (12-78); BILIRUBIN,TOTAL 0.2 MG/DL (0.2-1.0); BLOOD UREA NITROGEN 21 MG/DL (7-18); CALCIUM LEVEL 9.1 MG/DL (8.5-10.1); CARBON DIOXIDE LEVEL 29 MEQ/L (21-32); CHLORIDE LEVEL 102 MEQ/L (98-107); CREATININE FOR GFR 1.13 MG/DL (0.70-1.30); GLOMERULAR FILTRATION RATE > 60.0 (>60); GLUCOSE, FASTING 103 MG/DL (70-100); POTASSIUM SERUM 4.2 MEQ/L (3.5-5.1); SODIUM LEVEL 136 MEQ/L (136-145); TOTAL PROTEIN 7.1 GM/DL (6.4-8.2)
[2018-08-04 11:54] LABS: HEPATITIS B SURFACE ANTIGEN NEGATIVE (NEGATIVE)
[2018-08-04 12:22] LABS: HEPATITIS C VIRUS ABY INDEX 0.1 INDEX (<0.8)
[2018-08-04 12:23] LABS: HIV 1&2 SCREEN CENTAUR NEGATIVE (NEGATIVE)
== END ==
LOC: M LAB 10:41
PROVIDERS: ATTEND Family Medicine
DX: F11.21 Opioid dependence, in remission (principal)

== ENCOUNTER → 2018-09-13 | Outpatient (CLI) | payer OTHER ==
[~2018-09-13] MED LIST changes: -TRAZ-160 PO; +TRAZ-252 PO
--- NOTE | 2018-09-13 19:07 | REP ---
Clinical: Urinary hesitancy. Technique: Real time holland scale and color evaluation using curved array transducer. Findings: The bladder wall suggests mild trabeculation without wall thickening or mass lesion. Bilateral ureteral jets are identified. Prevoid bladder measures 7.2 x 5.4 x 6.0 cm (152 ml) at the patient's fullness level. Postvoid bladder measured 5.7 x 3.2 x 3.5 cm (42 ml). Postvoid residual based on current examination 28%. The prostate measures 3.1 x 3.0 x 3.1 cm (15 ml). Impression: 1. Abnormal postvoid residual volume. 2. Bladder wall suggests mild trabeculation without wall thickening or further abnormality. Electronically Signed by Margarito Dewey MD 09/13/2018 06:59 P
== END ==
LOC: M RAD 13:43
PROVIDERS: ATTEND Nurse Practitioner Family
DX: R39.11 Hesitancy of micturition (principal)

== ENCOUNTER → 2018-12-04 | Outpatient (REF) | payer OTHER ==
[2018-12-04 13:07] LABS: APPEARANCE, URINE CLEAR (CLEAR); BACTERIA, URINE AUTO NEGATIVE (NEGATIVE); BILIRUBIN, URINE AUTO NEGATIVE (NEGATIVE); BLOOD, URINE BLOOD NEGATIVE (NEGATIVE); COLOR, URINE YELLOW (YELLOW); GLUCOSE, URINE (UA) AUTO NEGATIVE (NEGATIVE); KETONE, URINE AUTO NEGATIVE (NEGATIVE); LEUKOCYTE ESTERASE, URINE AUTO NEGATIVE (NEGATIVE); NITRITE, URINE AUTO NEGATIVE (NEGATIVE); PROTEIN, URINE AUTO NEGATIVE (NEGATIVE); RBC, URINE AUTO 0 /HPF (0-3); SPECIFIC GRAVITY URINE AUTO 1.023 (1.002-1.035); SQUAMOUS EPITHELIAL CELL UR AU 0 /HPF (0-6); UROBILINOGEN, URINE AUTO 0.2 mg/dL (0.0-2.0); WBC, URINE AUTO 0 /HPF (0-3)
== END ==
LOC: M SMT 12:34
PROVIDERS: ATTEND Nurse Practitioner Family
DX: R39.11 Hesitancy of micturition (principal)

== ENCOUNTER 2018-12-26 09:30 | Emergency (ER) | payer OTHER ==
[~2018-12-26] VITALS: Ht 165.1 cm; Wt 79.5 kg
[2018-12-26] MEDS ORDERED: HYDR1CAP25 (09:38)
[2018-12-26] MEDS ORDERED: CLIN1GEL22 (09:38)
[2018-12-26 10:54] VITALS: BP 134/75
[2018-12-26] MEDS ORDERED: IBUP80TA PO (11:12)
--- NOTE | 2018-12-26 12:31 | ECGEPIP ---
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
== END 2018-12-26 11:19 | disposition home or self-care (01) ==
LOC: M ED 09:30
DX: S29.012A Strain of muscle and tendon of back wall of thorax, initial encounter (principal); X58.XXXA Exposure to other specified factors, initial encounter; Y92.89 Other specified places as the place of occurrence of the external cause; R20.0 Anesthesia of skin; G40.909 Epilepsy, unspecified, not intractable, without status epilepticus; F11.21 Opioid dependence, in remission; Z79.899 Other long term (current) drug therapy

== ENCOUNTER → 2018-12-27 | Outpatient (REF) | payer OTHER ==
[~2018-12-27] MED LIST changes: +CLIN1GEL22
[2018-12-27 16:14] LABS: ALBUMIN 3.8 GM/DL (3.2-5.2); ALT/SGPT 82 U/L (12-78); BILIRUBIN,DIRECT < 0.1 MG/DL (0.0-0.2); BILIRUBIN,TOTAL 0.2 MG/DL (0.2-1.0); CHOLESTEROL LEVEL 199 MG/DL (<200); CHOLESTEROL RISK RATIO 5.102 (<5); HDL CHOLESTEROL 39 MG/DL (>40); LDL CHOLESTEROL 128 MG/DL (<100); NON-HDL-C 160 MG/DL; TOTAL PROTEIN 8.2 GM/DL (6.4-8.2); TRIGLYCERIDES LEVEL 161 MG/DL (<150)
== END ==
LOC: M SFHCPLAZ 12:43
PROVIDERS: ATTEND Dermatology
DX: Z79.899 Other long term (current) drug therapy (principal)

== ENCOUNTER → 2019-01-25 | Outpatient (REF) | payer OTHER ==
[2019-01-25 11:04] LABS: ALBUMIN 3.7 GM/DL (3.2-5.2); ALT/SGPT 83 U/L (12-78); BILIRUBIN,DIRECT < 0.1 MG/DL (0.0-0.2); BILIRUBIN,TOTAL 0.3 MG/DL (0.2-1.0); CHOLESTEROL LEVEL 217 MG/DL (<200); CHOLESTEROL RISK RATIO 6.027 (<5); HDL CHOLESTEROL 36 MG/DL (>40); LDL CHOLESTEROL 117 MG/DL (<100); NON-HDL-C 181 MG/DL; TOTAL PROTEIN 7.9 GM/DL (6.4-8.2); TRIGLYCERIDES LEVEL 321 MG/DL (<150)
== END ==
LOC: M SFHCPLAZ 08:41
PROVIDERS: ATTEND Dermatology
DX: Z79.899 Other long term (current) drug therapy (principal)

== ENCOUNTER → 2019-02-27 | Outpatient (CLI) | payer OTHER ==
[2019-02-27 17:34] LABS: BLOOD UREA NITROGEN 15 MG/DL (7-18); CALCIUM LEVEL 9.5 MG/DL (8.5-10.1); CARBON DIOXIDE LEVEL 31 MEQ/L (21-32); CHLORIDE LEVEL 102 MEQ/L (98-107); CREATININE FOR GFR 1.29 MG/DL (0.70-1.30); GLOMERULAR FILTRATION RATE > 60.0 (>60); GLUCOSE, FASTING 101 MG/DL (70-100); POTASSIUM SERUM 4.8 MEQ/L (3.5-5.1); SODIUM LEVEL 138 MEQ/L (136-145)
[2019-02-27 17:35] LABS: ALBUMIN 4.2 GM/DL (3.2-5.2); ALT/SGPT 64 U/L (12-78); BILIRUBIN,TOTAL 0.3 MG/DL (0.2-1.0); CHOLESTEROL LEVEL 320 MG/DL (<200); CHOLESTEROL RISK RATIO 10.666 (<5); HDL CHOLESTEROL 30 MG/DL (>40); LDL CHOLESTEROL 253 MG/DL (<100); NON-HDL-C 290 MG/DL; TOTAL PROTEIN 8.5 GM/DL (6.4-8.2); TRIGLYCERIDES LEVEL 186 MG/DL (<150)
== END ==
LOC: M LAB 16:39
PROVIDERS: ATTEND Dermatology
DX: Z79.899 Other long term (current) drug therapy (principal)

== ENCOUNTER → 2019-06-11 | Outpatient (REF) | payer OTHER ==
[~2019-06-11] MED LIST changes: +CLON0.5T2 PO; -CLON0.5T8 PO; -LORA0.5T11 PO; +LORA0.5T5 PO; -TRAZ-163 PO; +TRAZ-257 PO
[2019-06-11 18:10] LABS: HEMOGLOBIN A1c 6.3 %
[2019-06-11 18:26] LABS: ALBUMIN 4.2 GM/DL (3.2-5.2); ALT/SGPT 94 U/L (12-78); BILIRUBIN,TOTAL 0.2 MG/DL (0.2-1.0); BLOOD UREA NITROGEN 16 MG/DL (7-18); CALCIUM LEVEL 9.4 MG/DL (8.5-10.1); CARBON DIOXIDE LEVEL 28 MEQ/L (21-32); CHLORIDE LEVEL 104 MEQ/L (98-107); CHOLESTEROL LEVEL 190 MG/DL (<200); CREATININE FOR GFR 1.22 MG/DL (0.70-1.30); FREE T4 0.76 NG/DL (0.76-1.46); GLOMERULAR FILTRATION RATE > 60.0 (>60); GLUCOSE, FASTING 106 MG/DL (70-100); HDL CHOLESTEROL 25 MG/DL (>40); LDL CHOLESTEROL 140 MG/DL (<100); NON-HDL-C 165 MG/DL; POTASSIUM SERUM 4.6 MEQ/L (3.5-5.1); SODIUM LEVEL 136 MEQ/L (136-145); TOTAL PROTEIN 7.9 GM/DL (6.4-8.2); TRIGLYCERIDES LEVEL 125 MG/DL (<150)
== END ==
LOC: M SFHCPLAZ 15:41
PROVIDERS: ATTEND Nurse Practitioner Family
DX: E78.5 Hyperlipidemia, unspecified (principal)

== ENCOUNTER → 2019-12-19 | Outpatient (CLI) | payer OTHER ==
[~2019-12-19] MED LIST changes: +ASPE4PAD TOP; +ATOR40TA75; +IBUP-1022 PO; +ROBA750T4 PO; +TAMS1CAP17
[2019-12-19 09:21] LABS: HEMATOCRIT 47.8 % (42.0-52.0); HEMOGLOBIN 15.4 g/dl (13.5-17.5); MEAN CORPUSCULAR HGB CONC 32.2 g/dl (32.0-36.5); PLATELET COUNT, AUTOMATED 294 10^3/uL (150-450); RED BLOOD COUNT 5.31 10^6/uL (4.30-6.10); WHITE BLOOD COUNT 9.4 10^3/uL (4.0-10.0)
[2019-12-19 09:46] LABS: ALBUMIN 4.3 GM/DL (3.2-5.2); ALT/SGPT 73 U/L (12-78); BILIRUBIN,TOTAL 0.3 MG/DL (0.2-1.0); BLOOD UREA NITROGEN 20 MG/DL (7-18); CALCIUM LEVEL 9.7 MG/DL (8.5-10.1); CARBON DIOXIDE LEVEL 28 MEQ/L (21-32); CHLORIDE LEVEL 104 MEQ/L (98-107); CREATININE FOR GFR 1.25 MG/DL (0.70-1.30); GLOMERULAR FILTRATION RATE > 60.0 (>60); GLUCOSE, FASTING 80 MG/DL (70-100); POTASSIUM SERUM 4.4 MEQ/L (3.5-5.1); SODIUM LEVEL 137 MEQ/L (136-145); TOTAL PROTEIN 7.7 GM/DL (6.4-8.2)
[2019-12-19 11:31] LABS: CHLAMYDIA DNA AMPLIFICATION NEGATIVE (NEGATIVE); GC DNA AMPLIFICATION NEGATIVE (NEGATIVE)
[2019-12-19 13:15] LABS: HEPATITIS B SURFACE ANTIGEN NEGATIVE (NEGATIVE)
[2019-12-19 13:44] LABS: HEPATITIS C VIRUS ABY INDEX 0.2 INDEX (<0.8); HIV 1&2 SCREEN CENTAUR NEGATIVE (NEGATIVE)
== END ==
LOC: M LAB 08:33
PROVIDERS: ATTEND Family Medicine
DX: F11.10 Opioid abuse, uncomplicated (principal)

== ENCOUNTER 2020-02-13 06:28 | Emergency (ER) | payer OTHER ==
[~2020-02-13] VITALS: Ht 162.6 cm; Wt 77.3 kg
[~2020-02-13 06:28] MED LIST changes: -IBUP-1022 PO
[2020-02-13] MEDS ORDERED: KETOROLAC 30 MG/ML 1ML VIAL IM ONE (07:15)
[2020-02-13] MEDS ORDERED: IBUP-1022 PO (07:18)
[2020-02-13 07:31] VITALS: BP 139/81
--- NOTE | 2020-02-13 07:33 | REPVR ---
PROCEDURE INFORMATION: Exam: XR Right Shoulder Exam date and time: 02/13/2020 6:59 AM Age: 34 years old Clinical indication: Pain; Shoulder; Right; Additional info: Fall, deformity TECHNIQUE: Imaging protocol: XR Right shoulder. Views: 2 or more views. COMPARISON: No relevant prior studies available. FINDINGS: Bones/joints: Normal. Soft tissues: Normal. IMPRESSION: No acute findings. Electronically signed by: Manda Us On 02/13/2020 07:32:31 AM
== END 2020-02-13 07:40 | disposition home or self-care (01) ==
LOC: M ED 06:28 → EDBD 06:28 → M ED 07:40
DX: M25.511 Pain in right shoulder (principal); Z79.899 Other long term (current) drug therapy
CPT/HCPCS: 73030; 96372; 99284; J1885

== ENCOUNTER → 2020-02-19 | Outpatient (CLI) | payer OTHER ==
[~2020-02-19] MED LIST changes: +IBUP-1022 PO
[2020-02-19 16:04] LABS: ALBUMIN 4.4 GM/DL (3.2-5.2); BILIRUBIN,DIRECT 0.1 MG/DL (0.0-0.2); BILIRUBIN,TOTAL 0.3 MG/DL (0.2-1.0); CHOLESTEROL RISK RATIO 5.051 (<5); TOTAL PROTEIN 7.9 GM/DL (6.4-8.2)
== END ==
LOC: M LAB 14:59
PROVIDERS: ATTEND Dermatology
DX: L70.9 Acne, unspecified (principal)

== ENCOUNTER 2020-03-10 18:43 | Emergency (ER) | payer OTHER ==
[~2020-03-10] VITALS: Ht 165.1 cm; Wt 78.8 kg
[2020-03-10 20:20] VITALS: BP 135/85
== END 2020-03-10 22:02 | disposition home or self-care (01) ==
LOC: M ED 18:43
DX: S46.211A Strain of muscle, fascia and tendon of other parts of biceps, right arm, initial encounter (principal); X58.XXXA Exposure to other specified factors, initial encounter; Y92.018 Other place in single-family (private) house as the place of occurrence of the external cause; E78.5 Hyperlipidemia, unspecified; Z79.899 Other long term (current) drug therapy; Z79.890 Hormone replacement therapy

== ENCOUNTER → 2020-04-07 | Outpatient (CLI) | payer OTHER ==
[2020-04-07 14:04] LABS: ALBUMIN 4.4 GM/DL (3.2-5.2); ALT/SGPT 151 U/L (12-78); BILIRUBIN,DIRECT < 0.1 MG/DL (0.0-0.2); BILIRUBIN,TOTAL 0.2 MG/DL (0.2-1.0); CHOLESTEROL LEVEL 182 MG/DL (<200); CHOLESTEROL RISK RATIO 5.687 (<5); HDL CHOLESTEROL 32 MG/DL (>40); LDL CHOLESTEROL 117 MG/DL (<100); NON-HDL-C 150 MG/DL; TOTAL PROTEIN 7.9 GM/DL (6.4-8.2); TRIGLYCERIDES LEVEL 164 MG/DL (<150)
== END ==
LOC: M LAB 12:57
PROVIDERS: ATTEND Dermatology
DX: Z79.899 Other long term (current) drug therapy (principal)

== ENCOUNTER 2020-05-09 20:18 | Emergency (ER) | payer OTHER ==
--- OUTSIDE RECORDS SUMMARY | 2020-05-09 20:24 | CCD ---
Author Author [facility] Organization [facility] Address Unknown Phone Unavailable Care Team Providers Care Drafter Chief Design Name Role Phone Korey Angel Unavailable PROBLEMS Type Condition ICD9-CM Code [id number] Code Onset Dates Condition S tatus SNOMED Code Notes Problem Opioid use disorder F11.99 Active 00290029 Problem Obesity E66.9 Active 809377636 Problem Urinary hesitancy R39.11 Active 7254469 Problem Memory loss R41.3 Active 516189423 Problem Hyperlipidemia E78.5 Active 49726290 Problem High risk medications (not anticoagulants) long-term use Z79.899 Active 522665554 Problem Major depressive disorder F32.9 Active 700789 000 Problem Acne L70.9 Active 18239903 Problem 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 Active 03941887 Problem CKD (chronic kidney disease), stage III N18.3 Active 089413339 Problem Cervical spondylosis with radiculopathy M47.22 Active 848785569 Problem Other spondylosis with myelopathy, 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 Active 99517978 Problem Acne scarring L73.0 Active 520809254 ALLERGIES No Known Allergies ENCOUNTERS from 1983 to 2020-04-13 Encounter Location Date Provider Diagnosis [facility] Dermatology [address] [facility] 1st [place] [address] Mar, Korey Angel Acne L70.9 and High risk med ications (not anticoagulants) long-term use Z79.899 IMMUNIZATIONS No Information SOCIAL HISTORY Tobacco Use: Social History Observation Description Date Details (start date - stop date) Never Smoker Sex Assigned At : Social History Observation Description Sex Assigned At Unknown Education: Question Answer Notes Level of Education: Finished High School Orthodoxy: Question Answer Notes Orthodoxy 08 Jew Alcohol Screening: Question Answer Notes Did you have a drink containing alcohol in the past year? No Points 0 Interpretation Negative Tobacco Use: Question Answer Notes Are you a: never smoker REASON FOR REFERRAL No Information VITAL SIGNS Weight 174 lbs Mar, Height 5'5" in Mar, BMI 28.95 kg/m2 Mar, Blood pressure systolic 118 mm Hg Mar, Blood pressure diastolic 68 mm Hg Mar, MEDICATIONS Medication SIG (Take, Route, Frequency, Duration) Notes Start Da te End Date Status Atorvastatin Calcium 40 MG Take 1 tablet By Mouth once a day for 30 Active Methadone HCl 10 MG/5ML 40 mls Orally Daily Active Donepezil HCl 5 MG 1 tablet at bedtime Orally Once a day for 30 Active Isotretinoin 30 MG as directed Orally BID with fatty food for 30 days Active Venlafaxine HCl ER 150 MG Take 1 capsule by mouth once a day for 30 Active PROCEDURES No Information RESULTS No Results REASON FOR VISIT ACCUTANE MEDICAL (GENERAL) HISTORY Type Description Date Medical History cervical c-1 fx - 2012 Medical History depression Medical History Opiod use disorder Medical History credo since 06/2017 on methadone Medical History OTC supplements for muscle mass Medical History CKD stage 3 Surgical History No Surgical history information Hospitalization History cervical fracture 2012 Goals Section No Information Health Concerns No Information MEDICAL EQUIPMENT No Information MENTAL STATUS No Information FUNCTIONAL STATUS No Information ASSESSMENTS Encounter Date Diagnosis Assessment Notes Treatment Notes Treatm ent Clinical Notes Mar, Acne (ICD-10 - L70.9) 33% improvement, may increase dose depending on labs. We discussed the administrative requirements of the [facility] ([facility]) program, and the possible side effects of oral isotretinoin therapy including, but not limited to, headache, vision change, depression, mood change, bone/joint/muscle pain, abdominal pain, nausea, change in bowel movements, elevation of transaminases, elevation of triglycerides, dryness of the skin/lips/eyes/nares. We discussed the importance of stopping other vitamin supplementation, particularly vitamin A, and the need to avoid anabolic steroid and testosterone supplements, avoid whey protein. High risk medication. Labs entered for today, patient understands to schedule f/u today for 30 days. The patient was registered in the H-art ([facility]) program, H-art ([facility]PP) number is [id number]. Cumulative second course dose: 1800 mg Modes of control are: [ x ] N/A male patient Mar, High risk medications (not a nticoagulants) long-term use (ICD-10 - Z79.899) Check labs as above PLAN OF TREATMENT Medication Medication Name Sig Start Date Stop Date Atorvastatin Calcium 40 MG Take 1 tablet By Mouth once a day for 30 Isotretinoin 30 MG as directed Orally BID with fatty food for 30 days Treatment Notes Assessment Notes Clinical Notes Acne 33% improvement, may increase dose depending on labs. We discussed the administrative requirements of the H-art ([facility]PP) program, and the possible side effects of oral isotretinoin therapy including, but not limited to, headache, vision change, depression, mood change, bone/joint/muscle pain, abdominal pain, nausea, change in bowel movements, elevation of transaminases, elevation of triglycerides, dryness of the skin/lips/eyes/nares. We discussed the importance of stopping other vitamin supplementation, particularly vitamin A, and the need to avoid anabolic steroid and testosterone supplements, avoid whey protein. High risk medication. Labs entered for today, patient understands to schedule f/u today for 30 days. The patient was registered in the H-art ([facility]PP) program, H-art (WPP) number is [id number].Cumulative second course dose: 1800 mgModes of control are: [ x ] N/A male patient High risk medications (not anticoagulants) long-term use Check labs as above Future Test Test Name Order Date LIPID PANEL (CARDIAC RISK) [id number] LIVER PROFILE [id number] Next Appt Details 1 month Reason:Accutane follow up Provider Name:Korey Angel, 2020-04 02:45:00 PM, [address] [facility], [address] [place] [address], [address], Provider Name:Antonieta Sheets, 06 01:00:00 PM, [address] [place], [address], Follow Up:1 monthAccutane follow up Insurance Providers Payer Name Payer Address Payer Phone Insured Name Patient Relati onship to Insured Coverage Start Date Coverage End Date [facility] [address] [facility] [phone] ALYSHA STEARNS self
--- OUTSIDE RECORDS SUMMARY | 2020-05-09 20:24 | CCD ---
Author Author [facility] Organization [facility] Address Unknown Phone Unavailable Care Team Providers Care Room Manager Name Role Phone Olelester Antonieta Unavailable PROBLEMS Type Condition ICD9-CM Code [id number] Code Onset Dates Condition S tatus SNOMED Code Notes Problem Opioid use disorder F11.99 Active 28093483 Problem Obesity E66.9 Active 190374133 Problem Urinary hesitancy R39.11 Active 0402941 Problem Memory loss R41.3 Active 722834398 Problem Hyperlipidemia E78.5 Active 38515657 Problem High risk medications (not anticoagulants) long-term use Z79.899 Active 184572473 Problem Major depressive disorder F32.9 Active 049363 000 Problem Acne L70.9 Active 76037745 Problem 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 Active 44724846 Problem CKD (chronic kidney disease), stage III N18.3 Active 090722182 Problem Cervical spondylosis with radiculopathy M47.22 Active 397671368 Problem Other spondylosis with myelopathy, 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 Active 32399186 Problem Acne scarring L73.0 Active 482917079 ALLERGIES No Known Allergies ENCOUNTERS from 1983 to 2020-04-28 Encounter Location Date Provider Diagnosis [address] [address] Apr, Antonieta Sheets Encounter for immunization Z23 IMMUNIZATIONS Vaccine Route Administration Date Status MMR 0.5mL IM Intramuscular Apr 18, 2020 Administered SOCIAL HISTORY Tobacco Use: Social History Observation Description Date Details (start date - stop date) Never Smoker Sex Assigned At : Social History Observation Description Sex Assigned At Unknown Education: Question Answer Notes Level of Education: Finished High School Buddhist: Question Answer Notes Buddhist 08 Anabaptist Alcohol Screening: Question Answer Notes Did you have a drink containing alcohol in the past year? No Points 0 Interpretation Negative Tobacco Use: Question Answer Notes Are you a: never smoker REASON FOR REFERRAL No Information VITAL SIGNS No information MEDICATIONS Medication SIG (Take, Route, Frequency, Duration) [...] Information RESULTS No Results REASON FOR VISIT MMR vaccine MEDICAL (GENERAL) HISTORY Type Description Date Medical [...] Notes Treatment Notes Treatm ent Clinical Notes Apr, Encounter for immunization (ICD-10 - Z23) Patient Educated with: MMR Vaccine [id number] (MMR Vaccine [id number]) PLAN OF TREATMENT Medication Medication Name Sig Start Date Stop Date Atorvastatin Calcium 40 MG Take 1 tablet By Mouth once a day for 30 Isotretinoin 30 MG as directed Orally BID with fatty food for 30 days Treatment Notes Assessment Notes Clinical Notes Encounter for immunization Patient Educated with: MMR Vaccine [id number] (MMR Vaccine [id number].pdf) Next Appt Details Provider Name:Korey Angel, 2020-04 02:45:00 PM, [address] [facility], [address] [facility], [place], [address], Provider Name:Antonieta Sheets, 07-15 01:00:00 PM, [address] [place], [address], Insurance Providers Payer Name Payer Address Payer Phone Insured Name Patient Relati onship to Insured Coverage Start Date Coverage End Date [facility] COMM[facility] PL[facility] [address] [facility] [phone] ALYSHA STEARNS self
--- OUTSIDE RECORDS SUMMARY | 2020-05-09 20:24 | CCD ---
Author Author [facility] Organization [facility] Address Unknown Phone Unavailable Care Team Providers Care Grainer Machine Name Role Phone Antonieta Sheets Unavailable PROBLEMS Type Condition ICD9-CM Code MON49-LF Code Onset Dates Condition S tatus SNOMED Code Notes Problem Opioid use disorder F11.99 Active 56338217 Problem Obesity E66.9 Active 483042907 Problem Urinary hesitancy R39.11 Active 8857443 Problem Memory loss R41.3 Active 769368637 Problem Hyperlipidemia E78.5 Active 41894754 Problem High risk medications (not anticoagulants) long-term use Z79.899 Active 735375490 Problem Major depressive disorder F32.9 Active 027384 000 Problem Acne L70.9 Active 11594008 Problem 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 Active 41521988 Problem CKD (chronic kidney disease), stage III N18.3 Active 705007901 Problem Cervical spondylosis with radiculopathy M47.22 Active 840961345 Problem Other spondylosis with myelopathy, 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 Active 48777184 Problem Acne scarring L73.0 Active 363153745 ALLERGIES No Known Allergies ENCOUNTERS from 1983 to 2020-05-02 Encounter Location Date Provider Diagnosis [address] [address] Apr, Antonieta Sheets IMMUNIZATIONS Vaccine Route Administration Date Status MMR 0.5mL IM Intramuscular Apr 18, 2020 Administered SOCIAL HISTORY Tobacco Use: Social History Observation Description Date Details (start date - stop date) Never Smoker Sex Assigned At : Social History Observation Description Sex Assigned At Unknown Education: Question Answer Notes Level of Education: Finished High School Religious: Question Answer Notes Religious 08 Uatsdin Alcohol Screening: Question Answer Notes Did you have a drink containing alcohol in the past year? No Points 0 Interpretation Negative Tobacco Use: Question Answer Notes Are you a: never smoker REASON FOR REFERRAL No Information VITAL SIGNS No information MEDICATIONS Medication SIG (Take, Route, Frequency, Duration) Notes Start Da te End Date Status Venlafaxine HCl ER 150 MG Take 1 capsule by mouth once a day Orally Once a day for 30 days Active Methadone HCl 10 MG/5ML 40 mls Orally Daily Active Atorvastatin Calcium 40 MG Take 1 tablet By Mouth once a day for 30 Active Isotretinoin 30 MG as directed Orally BID with fatty food for 30 days Active Donepezil HCl 5 MG 1 tablet at bedtime Orally Once a day for 30 Active PROCEDURES No Information RESULTS No Results REASON FOR VISIT Venlafaxine HCl ER 150 MG Capsule Extended Release 24 Hour MEDICAL (GENERAL) HISTORY Type Description Date Medical History cervical c-1 fx - 2012 Medical History depression Medical History Opiod use disorder Medical History credo since 06/2017 on methadone Medical History OTC supplements for muscle mass Medical History CKD stage 3 Surgical History No Surgical history information Hospitalization History cervical fracture 2013 Goals Section No Information Health Concerns No Information MEDICAL EQUIPMENT No Information MENTAL STATUS No Information FUNCTIONAL STATUS No Information ASSESSMENTS No Information PLAN OF TREATMENT Medication Medication Name Sig Start Date Stop Date Venlafaxine HCl ER 150 MG Take 1 capsule by mouth once a day Orally Once a day for 30 days Isotretinoin 30 MG as directed Orally BID with fatty food for 30 days Atorvastatin Calcium 40 MG Take 1 tablet By Mouth once a day for 30 Next Appt Details Provider Name:Antonietacarolina Sheets, 2021-0 07-15 01:00:00 PM, [address] [place], [address], Insurance Providers Payer Name Payer Address Payer Phone Insured Name Patient Relati onship to Insured Coverage Start Date Coverage End Date [facility] COMMUN[facility] PLAN [facility] [address] [facility] [phone] ALYSHA STEARNS self
--- OUTSIDE RECORDS SUMMARY | 2020-05-09 20:24 | CCD ---
Author Author [facility] Organization [facility] Address Unknown Phone Unavailable Care Team Providers Care Facilities Operator Name Role Phone Olelester Antonieta Unavailable PROBLEMS Type Condition ICD9-CM Code TVP31-VL Code Onset Dates Condition S tatus SNOMED Code Notes Problem Opioid use disorder F11.99 Active 38434152 Problem Obesity E66.9 Active 975133708 Problem Urinary hesitancy R39.11 Active 4597855 Problem Memory loss R41.3 Active 459581446 Problem Hyperlipidemia E78.5 Active 33306935 Problem High risk medications (not anticoagulants) long-term use Z79.899 Active 844097154 Problem Major depressive disorder F32.9 Active 582202 000 Problem Acne L70.9 Active 10261656 Problem 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 Active 09562350 Problem CKD (chronic kidney disease), stage III N18.3 Active 897545277 Problem Cervical spondylosis with radiculopathy M47.22 Active 411729461 Problem Other spondylosis with myelopathy, 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 Active 27896875 Problem Acne scarring L73.0 Active 515556906 ALLERGIES No Known Allergies ENCOUNTERS from 1983 to 2020-04-23 Encounter Location Date Provider Diagnosis [address] [address] 13 Apr, 2020 Antonieta Sheets PPD screening test Z11.1 IMMUNIZATIONS Vaccine Route Administration Date Status MMR 0.5mL IM Intramuscular Apr 18, 2020 Administered SOCIAL HISTORY Tobacco Use: Social History Observation Description Date Details (start date - stop date) Never Smoker Sex Assigned At : Social History Observation Description Sex Assigned At Unknown Education: Question Answer Notes Level of Education: Finished High School Shinto: Question Answer Notes Shinto 08 Voodoo Alcohol Screening: Question Answer Notes Did you [...] Information RESULTS No Results REASON FOR VISIT TB test for employment MEDICAL (GENERAL) HISTORY Type Description Date Medical [...] Treatment Notes Treatm ent Clinical Notes Apr, PPD screening test (ICD-10 - Z11.1) PLAN OF TREATMENT Medication Medication Name Sig Start Date Stop Date Atorvastatin Calcium 40 MG Take 1 tablet By Mouth once a day for 30 Isotretinoin 30 MG as directed Orally BID with fatty food for 30 days Treatment Notes Test Name Order Date Injection: Tuberculin Purified Protein 0.1mL Intraderm al (PPD) 2020-04-23 Next Appt Details Provider Name:Korey Angel, 2020-04 02:45:00 PM, [address] [facility], 1st Floor, [place], [address], Provider Name:Antonieta Sheets, 07-15 01:00:00 PM, [address] [place], [address], Insurance Providers Payer Name Payer Address Payer Phone Insured Name Patient Relati onship to Insured Coverage Start Date Coverage End Date [facility] [address] [place] [phone] ALYSHA STEARNS self
--- OUTSIDE RECORDS SUMMARY | 2020-05-09 20:24 | CCD ---
Author Author [facility] Organization [facility] Address Unknown Phone Unavailable Care Team Providers Care Physician Recruiter Name Role Phone Antonieta Sheets Unavailable PROBLEMS Type Condition ICD9-CM Code OIL92-BQ Code Onset Dates Condition S tatus SNOMED Code Notes Problem Opioid use disorder F11.99 Active 24585865 Problem Obesity E66.9 Active 455404481 Problem Urinary hesitancy R39.11 Active 3623497 Problem Memory loss R41.3 Active 577741435 Problem Hyperlipidemia E78.5 Active 83359946 Problem High risk medications (not anticoagulants) long-term use Z79.899 Active 012195368 Problem Major depressive disorder F32.9 Active 714620 000 Problem Acne L70.9 Active 36398333 Problem 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 Active 88343657 Problem CKD (chronic kidney disease), stage III N18.3 Active 941357443 Problem Cervical spondylosis with radiculopathy M47.22 Active 890707591 Problem Other spondylosis with myelopathy, 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 Active 97469289 Problem Acne scarring L73.0 Active 115490489 ALLERGIES No Known Allergies ENCOUNTERS from 1983 to 2020-04-29 Encounter Location Date Provider Diagnosis [address] [address] 18 Apr, 2020 Antonieta Sheets IMMUNIZATIONS Vaccine Route Administration Date Status MMR 0.5mL IM Intramuscular Apr 18, 2020 Administered SOCIAL HISTORY Tobacco Use: Social History Observation Description Date Details (start date - stop date) Never Smoker Sex Assigned At : Social History Observation Description Sex Assigned At Unknown Education: Question Answer Notes Level of Education: Finished High School Latter-Day: Question Answer Notes Latter-Day 08 Anabaptism Alcohol Screening: Question Answer Notes Did you [...] Information RESULTS No Results REASON FOR VISIT emotional support animal letter MEDICAL (GENERAL) HISTORY Type Description Date Medical [...] BID with fatty food for 30 days Next Appt Details Provider Name:Korey Angel, 2020-04 02:45:00 PM, [address] [facility], [address] [facility], [place], [address], Provider Name:Antonieta Sheets, 07-15 01:00:00 PM, [address] [place], [address], Insurance Providers Payer Name Payer Address Payer Phone Insured Name Patient Relati onship to Insured Coverage Start Date Coverage End Date [facility] COMMUNITY PLAN [facility] [address] [facility] [phone] ALYSHA STEARNS self
--- OUTSIDE RECORDS SUMMARY | 2020-05-09 20:24 | CCD ---
Author Author [facility] Organization [facility] Address Unknown Phone Unavailable Care Team Providers Care Residential Supervisor Name Role Phone Aquilino Sheetsy Unavailable PROBLEMS Type Condition ICD9-CM Code VJJ18-VL Code Onset Dates Condition S tatus SNOMED Code Notes Problem Opioid use disorder F11.99 Active 20238126 Problem Obesity E66.9 Active 565153252 Problem Urinary hesitancy R39.11 Active 4589877 Problem Memory loss R41.3 Active 072656112 Problem Hyperlipidemia E78.5 Active 59723485 Problem High risk medications (not anticoagulants) long-term use Z79.899 Active 231355120 Problem Major depressive disorder F32.9 Active 721852 000 Problem Acne L70.9 Active 23176589 Problem 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 Active 12699795 Problem CKD (chronic kidney disease), stage III N18.3 Active 179652683 Problem Cervical spondylosis with radiculopathy M47.22 Active 439724561 Problem Other spondylosis with myelopathy, 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 Active 02509560 Problem Acne scarring L73.0 Active 943604795 ALLERGIES No Known Allergies ENCOUNTERS from 1983 to 2020-04-23 Encounter Location Date Provider Diagnosis [address] [address] 13 Apr, 2020 Antonieta Sheets Immunity status testing Z01.84 IMMUNIZATIONS Vaccine Route Administration Date Status MMR 0.5mL IM Intramuscular Apr 18, 2020 Administered SOCIAL HISTORY Tobacco Use: Social History Observation Description Date Details (start date - stop date) Never Smoker Sex Assigned At : Social History Observation Description Sex Assigned At Unknown Education: Question Answer Notes Level of Education: Finished High School Mu-Ism: Question Answer Notes Mu-Ism 08 Catholic Alcohol Screening: Question Answer Notes Did you [...] RESULTS No Results REASON FOR VISIT MMR MEDICAL (GENERAL) HISTORY Type Description Date Medical [...] Treatment Notes Treatm ent Clinical Notes Apr, Immunity status testing (ICD-10 - Z01.84) PLAN OF TREATMENT Medication Medication Name Sig Start Date Stop Date Atorvastatin Calcium 40 MG Take 1 tablet By Mouth once a day for 30 Isotretinoin 30 MG as directed Orally BID with fatty food for 30 days Future Test Test Name Order Date MUMPS VIRUS IgG ANTIBODY [id number] RUBELLA IMMUNE STATUS IgG 20200423 RUBEOLA IgG ANTIBODY [id number] Next Appt Details Provider Name:Korey Angel, 2020-04 02:45:00 PM, [address] [facility], 1st Floor, [place], [address], Provider Name:Antonieta Sheets, 07-15 01:00:00 PM, [address] [place], [address], Insurance Providers Payer Name Payer Address Payer Phone Insured Name Patient Relati onship to Insured Coverage Start Date Coverage End Date [facility] [address] [place] [phone] ALYSHA STEARNS self
--- OUTSIDE RECORDS SUMMARY | 2020-05-09 20:24 | CCD ---
Author Author [facility] Organization [facility] Address Unknown Phone Unavailable Care Team Providers Care Senior Group Manager Name Role Phone JessikaraizaAquilino batistay Unavailable PROBLEMS Type Condition ICD9-CM Code NHQ79-XT Code Onset Dates Condition S tatus SNOMED Code Notes Problem Opioid use disorder F11.99 Active 93769112 Problem Obesity E66.9 Active 489427978 Problem Urinary hesitancy R39.11 Active 2026857 Problem Memory loss R41.3 Active 319790165 Problem Hyperlipidemia E78.5 Active 07707004 Problem High risk medications (not anticoagulants) long-term use Z79.899 Active 092687043 Problem Major depressive disorder F32.9 Active 456666 000 Problem Acne L70.9 Active 57834963 Problem 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 Active 71045381 Problem CKD (chronic kidney disease), stage III N18.3 Active 305670166 Problem Cervical spondylosis with radiculopathy M47.22 Active 821031823 Problem Other spondylosis with myelopathy, 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 Active 83504646 Problem Acne scarring L73.0 Active 195107012 ALLERGIES No Known Allergies ENCOUNTERS from 1983 to 2020-04-18 Encounter Location Date Provider Diagnosis [address] [address] Apr, Antonieta Sheets Encounter for immunization Z23 IMMUNIZATIONS No Information SOCIAL HISTORY Tobacco Use: Social History Observation Description Date Details (start date - stop date) Never Smoker Sex Assigned At : Social History Observation Description Sex Assigned At Unknown Education: Question Answer Notes Level of Education: Finished High School Faith: Question Answer Notes Faith 08 Rastafari Alcohol Screening: Question Answer Notes Did you [...] Apr, Encounter for immunization (ICD-10 - Z23) PLAN OF TREATMENT Medication Medication Name Sig Start Date Stop Date Atorvastatin Calcium 40 MG Take 1 tablet By Mouth once a day for 30 Isotretinoin 30 MG as directed Orally BID with fatty food for 30 days Treatment Notes Test Name Order Date Immunization: MMR 0.5mL SQ 2020-04-18 Next Appt Details Provider Name:Antonieta Sheets 04-18 01:15:00 PM, [address] [place] [address], [address], Provider Name:Korey Angel, 2020-04 02:45:00 PM, [address] [facility], 1st Floor, [place], [address], Provider Name:Antonieta Sheets 07-15 01:00:00 PM, [address] [place] [address], [address], Insurance Providers Payer Name Payer Address Payer Phone Insured Name Patient Relati onship to Insured Coverage Start Date Coverage End Date [facility] [employer] [address] [facility] [phone] ALYSHA STEARNS self
--- OUTSIDE RECORDS SUMMARY | 2020-05-09 20:24 | CCD ---
Author Author [facility] Organization [facility] Address Unknown Phone Unavailable Care Team Providers Care Roustabout Supervisor Name Role Phone Antonieta Sheets Unavailable PROBLEMS Type Condition ICD9-CM Code [id number] Code Onset Dates Condition S tatus SNOMED Code Notes Problem Opioid use disorder F11.99 Active 02229519 Problem Obesity E66.9 Active 096241515 Problem Urinary hesitancy R39.11 Active 1100351 Problem Memory loss R41.3 Active 550664645 Problem Hyperlipidemia E78.5 Active 05273365 Problem High risk medications (not anticoagulants) long-term use Z79.899 Active 717517367 Problem Major depressive disorder F32.9 Active 354100 000 Problem Acne L70.9 Active 64417218 Problem 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 Active 09132402 Problem CKD (chronic kidney disease), stage III N18.3 Active 344924315 Problem Cervical spondylosis with radiculopathy M47.22 Active 528457428 Problem Other spondylosis with myelopathy, 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 Active 20095201 Problem Acne scarring L73.0 Active 134482184 ALLERGIES No Known Allergies ENCOUNTERS from 1983 to 2020-03-26 Encounter Location Date Provider Diagnosis [address] [address] Mar, Antonieta Rosenlane Memory loss R41.3 IMMUNIZATIONS No Information SOCIAL HISTORY Tobacco Use: Social History Observation Description Date Details (start date - stop date) Never Smoker Sex Assigned At : Social History Observation Description Sex Assigned At Unknown Education: Question Answer Notes Level of Education: Finished High School Voodoo: Question Answer Notes Voodoo 08 [employer] Alcohol Screening: Question Answer Notes Did you have a drink containing alcohol in the past year? No Points 0 Interpretation Negative Tobacco Use: Question Answer Notes Are you a: never smoker REASON FOR REFERRAL No Information VITAL SIGNS No information MEDICATIONS Medication SIG (Take, Route, Frequency, Duration) Notes Start Da te End Date Status Methadone HCl 10 MG/5ML 40 mls Orally Daily Active Atorvastatin Calcium 40 MG 1 tablet Orally Once a day Active Venlafaxine HCl ER 150 MG Take 1 capsule by mouth once a day for 30 Active Isotretinoin 30 MG as directed Orally BID with fatty food Active Donepezil HCl 5 MG 1 tablet at bedtime Orally Once a day for 30 Days Active PROCEDURES No Information RESULTS No Results REASON FOR VISIT refill MEDICAL (GENERAL) HISTORY Type Description Date Medical [...] Treatment Notes Treatm ent Clinical Notes Mar, Memory loss (ICD-10 - R41.3) PLAN OF TREATMENT Medication Medication Name Sig Start Date Stop Date Methadone HCl 10 MG/5ML 40 mls Orally Daily Isotretinoin 30 MG as directed Orally BID with fatty food Donepezil HCl 5 MG 1 tablet at bedtime Orally Once a day for 30 Days Venlafaxine HCl ER 150 MG Take 1 capsule by mouth once a day for 30 Atorvastatin Calcium 40 MG 1 tablet Orally Once a day Next Appt Details Provider Name:Korey Angel, 2020-03 08:15:00 AM, [address] [facility] [place], [address] [place] [address], [address], Provider Name:Antonieta Sheets, 07-15 01:00:00 PM, [address] [place], [address], Insurance Providers Payer Name Payer Address Payer Phone Insured Name Patient Relati onship to Insured Coverage Start Date Coverage End Date [address] [phone] ALYSHA STEARNS self
--- OUTSIDE RECORDS SUMMARY | 2020-05-09 20:25 | CCD ---
Author Author [facility] Organization [facility] Address Unknown Phone Unavailable Care Team Providers Care Parts Order And Stock Clerk Name Role Phone Aquilino Sheetsy Unavailable PROBLEMS Type Condition ICD9-CM Code [id number] Code Onset Dates Condition S tatus SNOMED Code Notes Problem Opioid use disorder F11.99 Active 68029615 Problem Obesity E66.9 Active 705632328 Problem Urinary hesitancy R39.11 Active 2776125 Problem Memory loss R41.3 Active 079020231 Problem Hyperlipidemia E78.5 Active 20808922 Problem High risk medications (not anticoagulants) long-term use Z79.899 Active 274244160 Problem Major depressive disorder F32.9 Active 860548 000 Problem Acne L70.9 Active 35069840 Problem 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 Active 90955623 Problem CKD (chronic kidney disease), stage III N18.3 Active 786563201 Problem Cervical spondylosis with radiculopathy M47.22 Active 439515594 Problem Other spondylosis with myelopathy, 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 Active 26360836 Problem Acne scarring L73.0 Active 824913808 ALLERGIES No Known Allergies ENCOUNTERS from 1983 to 2020-02-21 Encounter Location Date Provider Diagnosis [address] [address] Feb, Antonieta Sheets IMMUNIZATIONS No Information SOCIAL HISTORY Tobacco Use: Social History Observation Description Date Details (start date - stop date) Never Smoker Sex Assigned At : Social History Observation Description Sex Assigned At Unknown Education: Question Answer Notes Level of Education: Finished High School Synagogue: Question Answer Notes Synagogue 08 Restorationist Alcohol Screening: Question Answer Notes Did you have a drink containing alcohol in the past year? No Points 0 Interpretation Negative Tobacco Use: Question Answer Notes Are you a: never smoker REASON FOR REFERRAL No Information VITAL SIGNS No information MEDICATIONS Medication SIG (Take, Route, Frequency, Duration) Start Date En d Date Status Isotretinoin 30 MG as directed Orally BID with fatty food f or 30 days Feb, Active Isotretinoin 40 MG as directed Orally BID take with fatty foods for 30 days Active Venlafaxine HCl ER 150 MG 1 capsule with food Orally Once a day for 30 Days Active Atorvastatin Calcium 40 MG 1 tablet Orally Once a day for 30 day(s) Active Nasal Relief 0.05 % INSTILL TWO SPRAYS IN EACH N OSTRIL TWICE DAILY FOR THREE DAYS NEEDED Nasal _ for 30 Active Methadone HCl 10 MG/5ML 40 mls Orally Daily Active Donepezil HCl 5 MG 1 tablet at bedtime Orally Once a day for 30 Day s Active Flomax 0.4 MG 1 capsule Orally Once a day for 30 day(s) Nov, 9 Active PROCEDURES No Information RESULTS No Results REASON FOR VISIT no show MEDICAL (GENERAL) HISTORY Type Description Date Medical [...] Medication Name Sig Start Date Stop Date Isotretinoin 30 MG as directed Orally BID with fatty food f or 30 days Feb, Next Appt Details Provider Name:Emelia Marques, 02:30:00 PM, [address] [place], [address], Insurance Providers Payer Name Payer Address Payer Phone Insured Name Patient Relati onship to Insured Coverage Start Date Coverage End Date [facility] COMM[facility]AN [facility] [address] [facility] [phone] ALYSHA STEARNS self
--- OUTSIDE RECORDS SUMMARY | 2020-05-09 20:25 | CCD | Continuity of Care Document ---
Author Author Sridhar LARA PA-C Organization Unknown Address [address] [place] [address] [address] [place] [address] Phone [phone] Care Team Providers Care Boiler Plant Operator Name Role Phone Antonieta Sheets DRIVEWAY SEALER AUTM [phone] Problems Description No Information Available Social History Type Date Description Comments Sex Unknown Allergies, Adverse Reactions, Alerts Description No Information Available Medications Description No Information Available Immunizations Description No Information Available Vital Signs Date Vital Result Comment 02/22/2020 2:03pm Body Temperature 97.1 F Height 64.5 inches 5'4.50" Weight 174.12 lb BMI (Body Mass Index) 29.4 kg/m2 Results Description No Information Available Procedures Date Code Description Status 02/22/2020 72453 Inject/Drain Joint/Bursa Major C ompleted Medical Devices Description No Information Available Encounters Type Date Location Provider Dx Diagnosis Office Visit 03/11/2020 2:00p [place] Cherry Lara PA-C S46.111 D Strain of musc/fasc/tend long hd bicep, right arm, subs Office Visit 02/22/2020 2:45p [place] Cherry Lara PA-C S46.911 A Strain unsp musc/fasc/tend at shldr/up arm, right arm, init Assessments Date Code Description Provider 03/11/2020 S46.111D Strain of muscle, fa scia and tendon of long head of biceps, right arm, subsequent encounter Cherry Lara PA-C 02/22/2020 S46.911A Strain of unspecifie d muscle, fascia and tendon at shoulder and upper arm level, right arm, initial encounter Cherry Lara PA-C Plan of Treatment No Information Available Functional Status Description No Information Available Mental Status Description No Information Available Referrals Refer to Reason for Referral Status Appt Date Cherry Lara PA-C PT EVAL RIGHT SHOULDER - APPROVED NLG Creat ed [facility] [address] [address] [phone] Cherry Lara PA-C CONTINUATION OF CARE RIGHT SHOULDER NLG Cre ated [facility] [address] [address] [phone]
--- OUTSIDE RECORDS SUMMARY | 2020-05-09 20:25 | CCD ---
Author Author [facility] Organization [facility] Address Unknown Phone Unavailable Care Team Providers Care Commercial Maintenance Technician Name Role Phone Antonieta Sheets Unavailable PROBLEMS Type Condition ICD9-CM Code HZG95-NA Code Onset Dates Condition S tatus SNOMED Code Notes Problem Opioid use disorder F11.99 Active 18212571 Problem Obesity E66.9 Active 323533968 Problem Urinary hesitancy R39.11 Active 4611156 Problem Memory loss R41.3 Active 287044219 Problem Hyperlipidemia E78.5 Active 91228240 Problem High risk medications (not anticoagulants) long-term use Z79.899 Active 265863054 Problem Major depressive disorder F32.9 Active 545772 000 Problem Acne L70.9 Active 50799377 Problem 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 Active 17774951 Problem CKD (chronic kidney disease), stage III N18.3 Active 274407253 Problem Cervical spondylosis with radiculopathy M47.22 Active 353371669 Problem Other spondylosis with myelopathy, 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 Active 01048488 Problem Acne scarring L73.0 Active 469025546 ALLERGIES No Known Allergies ENCOUNTERS from 1983 to 2020-03-17 Encounter Location Date Provider Diagnosis [address] [address] Mar, Antonieta Sheets Hyperlipidemia E78.5 ; CKD (chronic kidn ey disease), stage III N18.3 ; Opioid use disorder F11.99 ; Impaired glucose metabolism R73.09 ; Acne L70.9 ; Memory loss R41.3 and Major depressive disorder F32.9 IMMUNIZATIONS No Information SOCIAL HISTORY Tobacco Use: Social History Observation Description Date Details (start date - stop date) Never Smoker Sex Assigned At : Social History Observation Description Sex Assigned At Unknown Education: Question Answer Notes Level of Education: Finished High School Christian: Question Answer Notes Christian 08 L[employer] Day Alcohol Screening: Question Answer Notes Did you have a drink containing alcohol in the past year? No Points 0 Interpretation Negative Tobacco Use: Question Answer Notes Are you a: never smoker REASON FOR REFERRAL No Information VITAL SIGNS Weight 168 lbs Mar, Height 5'5" in Mar, BMI 27.95 kg/m2 Mar, Heart Rate 101 /min Mar, Respiratory Rate 18 /min Mar, Temperature 98.4 degrees Fahrenheit Mar, Blood pressure systolic 132 mm Hg Mar, Blood pressure diastolic 84 mm Hg Mar, MEDICATIONS Medication SIG (Take, Route, Frequency, Duration) Notes Start Da te End Date Status Isotretinoin 30 MG as directed Orally BID with fatty food Active Atorvastatin Calcium 40 MG 1 tablet Orally Once a day Active Methadone HCl 10 MG/5ML 40 mls Orally Daily Active Donepezil HCl 5 MG 1 tablet at bedtime Orally Once a day Active Venlafaxine HCl ER 150 MG Take 1 capsule by mouth once a day for 30 Active PROCEDURES No Information RESULTS No Results REASON FOR VISIT follow up MEDICAL (GENERAL) HISTORY Type Description Date Medical [...] Treatment Notes Treatm ent Clinical Notes Mar, Hyperlipidemia (ICD-10 - E78.5) 02/2020 114, 39, 219 LFT 45/107 Mar, CKD (chronic kidney disease), stage III (ICD-10 - N18.3) advised to avoid Nephrotoxic agents Mar, Opioid use disorder (ICD-10 - F11.99) f/u with [facility] Mar, Impaired glucose metabolism (ICD-10 - R73.09) continue diet/lifestyle changes 06/2019 6.3 Mar, Acne (ICD-10 - L70.9) f/u with Dermatology Mar, Memory loss (ICD-10 - R41.3) Neuro refused f/u bec of multiple NS Mar, Major depressive disorder (ICD-10 - F32.9) stable on current regimen PLAN OF TREATMENT Medication Medication Name Sig Start Date Stop Date Isotretinoin 30 MG as directed Orally BID with fatty food Donepezil HCl 5 MG 1 tablet at bedtime Orally Once a day Venlafaxine HCl ER 150 MG Take 1 capsule by mouth once a day for 30 Methadone HCl 10 MG/5ML 40 mls Orally Daily Atorvastatin Calcium 40 MG 1 tablet Orally Once a day Treatment Notes Assessment Notes Clinical Notes Hyperlipidemia 02/2020 114, 39, 219 LFT 45/107 CKD (chronic kidney disease), stage III advised to avoid Nephrotoxic agents Opioid use disorder f/u with [facility] Impaired glucose metabolism continue t/lifestyle changes06/2019 6.3 Acne f/u with Dermatology Memory loss Neuro refused f/u be c of multiple NS Major depressive disorder stable on curr ent regimen Next Appt Details 4 Months Reason: Provider Name:Antonieta Sheets, 2020-07-15 01:00:00 PM, [address] [place], [address], Insurance Providers Payer Name Payer Address Payer Phone Insured Name Patient Relati onship to Insured Coverage Start Date Coverage End Date [facility] COMMUN[facility] PLAN [facility] [address] [facility] [phone] ALYSHA STEARNS self
--- OUTSIDE RECORDS SUMMARY | 2020-05-09 20:25 | CCD ---
Author Author [facility] Organization [facility] Address Unknown Phone Unavailable Care Team Providers Care Cadd Manager Name Role Phone Korey Angel Unavailable PROBLEMS Type Condition ICD9-CM Code HSH73-DP Code Onset Dates Condition S tatus SNOMED Code Notes Problem Opioid use disorder F11.99 Active 83751141 Problem Obesity E66.9 Active 786965248 Problem Urinary hesitancy R39.11 Active 8349864 Problem Memory loss R41.3 Active 427747747 Problem Hyperlipidemia E78.5 Active 41471863 Problem High risk medications (not anticoagulants) long-term use Z79.899 Active 345404082 Problem Major depressive disorder F32.9 Active 313519 000 Problem Acne L70.9 Active 56692135 Problem 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 Active 30977129 Problem CKD (chronic kidney disease), stage III N18.3 Active 419464840 Problem Cervical spondylosis with radiculopathy M47.22 Active 420631890 Problem Other spondylosis with myelopathy, 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 Active 29269995 Problem Acne scarring L73.0 Active 662906365 ALLERGIES No Known Allergies ENCOUNTERS from 1983 to 2020-02-28 Encounter Location Date Provider Diagnosis [facility] Dermatology [address] [facility] 1[address] [place] [address] Feb, 2020 Korey Angel Acne L70.9 and High risk med ications (not anticoagulants) long-term use Z79.899 IMMUNIZATIONS No Information SOCIAL HISTORY Tobacco Use: Social History Observation Description Date Details (start date - stop date) Never Smoker Sex Assigned At : Social History Observation Description Sex Assigned At Unknown Education: Question Answer Notes Level of Education: Finished High School Latter Day: Question Answer Notes Latter Day 08 Scientologist Alcohol Screening: Question Answer Notes Did you have a drink containing alcohol in the past year? No Points 0 Interpretation Negative Tobacco Use: Question Answer Notes Are you a: never smoker REASON FOR REFERRAL No Information VITAL SIGNS Weight 177.8 lbs Feb, Height 5'5" in Feb, BMI 29.58 kg/m2 Feb, Blood pressure systolic 127 mm Hg Feb, Blood pressure diastolic 84 mm Hg Feb, MEDICATIONS Medication SIG (Take, Route, Frequency, Duration) Notes Start Da te End Date Status Isotretinoin 30 MG as directed Orally BID with fatty food for 30 days Feb, Active Isotretinoin 40 MG [...] THREE DAYS NEEDED Nasal _ for 30 Ac tive Methadone HCl 10 MG/5ML 40 mls Orally Daily Active Donepezil HCl 5 MG 1 tablet at bedtime Orally Once a day for 30 Days Active Flomax 0.4 MG 1 capsule Orally Once a day for 30 day(s) Nov, Active PROCEDURES No Information RESULTS No Results REASON FOR VISIT ACNE GOTTEN WORSE, VERY PAINFUL MEDICAL (GENERAL) HISTORY Type Description Date Medical [...] Notes Treatment Notes Treatm ent Clinical Notes Feb, Acne (ICD-10 - L70.9) Recurrence of acne, patient wants repeat course isotretinoin especially given his methadone is coming down and he's about to be at very low dose/down. We discussed the administrative requirements of the iPLEDGE program, and the possible side effects of [...] days. The patient was registered in the [employer] program, [employer] number is [id number] Modes of control are: [ x ] N/A male patient Feb, High risk medications (not a nticoagulants) long-term use (ICD-10 - Z79.899) Check labs as above PLAN OF TREATMENT Medication Medication Name Sig Start Date Stop Date Isotretinoin 30 MG as directed Orally BID with fatty food f or 30 days Feb, Treatment Notes Assessment Notes Clinical Notes Acne Recurrence of acne, patient wants repeat course isotretinoin especially given his methadone is coming down and he's about to be at very low dose/down. We discussed the administrative requirements of the [employer] program, and the possible side effects of [...] days. The patient was registered in the [employer] program, [employer] number is [id number] of control are: [ x ] N/A male patient High risk medications (not anticoagulants) long-term use Check labs as above Future Test Test Name Order Date LIPID PANEL (CARDIAC RISK) 20200219 LIVER PROFILE [id number] Next Appt Details 4 W Reason:Isotretinoin follow up Provider Name:Emelia Marques, 02:30:00 PM, [address] [place], [address], Follow Up:4 WIsotretinoin follow up Insurance Providers Payer Name Payer Address Payer Phone Insured Name Patient Relati onship to Insured Coverage Start Date Coverage End Date [facility] [address] [facility] [phone] ALYSHA STEARNS self
--- OUTSIDE RECORDS SUMMARY | 2020-05-09 20:25 | CCD | Continuity of Care Document ---
Author Author Sridhar LARA PA-C Organization Unknown Address [address] [place] [address] [address] [place] [address] Phone [phone] Care Team Providers Care Brass Pickler Name Role Phone Antonieta Sheets WHEAT COMBINE DRIVER AUTM [phone] Problems Description No Information Available Social History [...] Available Procedures Date Code Description Status 02/22/2020 68513 Inject/Drain Joint/Bursa Major C ompleted Medical Devices Description No Information Available Encounters Type Date Location Provider Dx Diagnosis Office Visit 02/22/2020 2:45p [place] Cherry Lara PA-C S46.911 A Strain unsp musc/fasc/tend at shldr/up arm, right arm, init Assessments Date Code Description Provider 02/22/2020 S46.911A Strain of unspecifie d muscle, fascia and tendon at shoulder and upper arm level, right arm, initial encounter Cherry Lara PA-C Plan of Treatment No Information Available Functional Status Description No Information Available Mental Status Description No Information Available Referrals Refer to Reason for Referral Status Appt Date Cherry Lara PA-C PT EVAL RIGHT SHOULDER - APPROVED NLG Creat ed [address] [facility] [address] [place] [address] [phone] Cherry Lara PA-C CONTINUATION OF CARE RIGHT SHOULDER NLG Cre ated [address] [facility] [address] [place] [address] [phone]
--- OUTSIDE RECORDS SUMMARY | 2020-05-09 20:25 | CCD ---
Author Author [facility] Organization [facility] Address Unknown Phone Unavailable Care Team Providers Care Social Sciences Chair Name Role Phone Sindhujeannie Korey Unavailable PROBLEMS Type Condition ICD9-CM Code OYE55-AM Code Onset Dates Condition S tatus SNOMED Code Notes Problem Opioid use disorder F11.99 Active 06768561 Problem Obesity E66.9 Active 297362606 Problem Urinary hesitancy R39.11 Active 7980479 Problem Memory loss R41.3 Active 144334228 Problem Hyperlipidemia E78.5 Active 01473670 Problem High risk medications (not anticoagulants) long-term use Z79.899 Active 008969659 Problem Major depressive disorder F32.9 Active 601836 000 Problem Acne L70.9 Active 99864317 Problem 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 Active 89566806 Problem CKD (chronic kidney disease), stage III N18.3 Active 579668616 Problem Cervical spondylosis with radiculopathy M47.22 Active 376519380 Problem Other spondylosis with myelopathy, 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 Active 39965183 Problem Acne scarring L73.0 Active 247062523 ALLERGIES No Known Allergies ENCOUNTERS from 1983 to 2020-02-25 Encounter Location Date Provider Diagnosis [facility] Dermatology [address] [facility] 1st [place] [address] Feb, Korey Angel IMMUNIZATIONS No Information SOCIAL HISTORY Tobacco Use: Social History Observation Description Date Details (start date - stop date) Never Smoker Sex Assigned At : Social History Observation Description Sex Assigned At Unknown Education: Question Answer Notes Level of Education: Finished High School Synagogue: Question Answer Notes Synagogue 08 Gnosticist Alcohol Screening: Question Answer Notes Did you [...] Information RESULTS No Results REASON FOR VISIT PA Isotretinoin 30MG capsules MEDICAL (GENERAL) HISTORY Type Description Date Medical [...] Details Provider Name:Emelia Marques, 02:30:00 PM, [address] [place], [address], Insurance Providers Payer Name Payer Address Payer Phone Insured Name Patient Relati onship to Insured Coverage Start Date Coverage End Date [facility] [address] [facility] [id number] ALYSHA STEARNS self
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
--- OUTSIDE RECORDS SUMMARY | 2020-05-09 20:25 | CCD | Continuity of Care Document ---
Author Author Sridhar LARA PA-C Organization Unknown Address [address] [place] [address] [address] [place] [address] Phone [phone] Care Team Providers Care Obstetrical Anesthesiologist Name Role Phone Antonieta Sheets AUTM [phone] Problems Description No Information Available Social History [...] Available Procedures Date Code Description Status 02/22/2020 88303 Inject/Drain Joint/Bursa Major C ompleted Medical Devices Description No Information Available Encounters Type Date Location Provider Dx Diagnosis Office Visit 02/22/2020 2:45p [place] Cherry Lara PA-C S43.491 A Other sprain of right shoulder joint, initial encounter Assessments Date Code Description Provider 02/22/2020 S43.491A Other sprain of right shoulder j oint, initial encounter Cherry Lara PA-C Plan of Treatment No Information Available Functional Status Description No Information Available Mental Status Description No Information Available Referrals Description No Information Available
--- OUTSIDE RECORDS SUMMARY | 2020-05-09 20:25 | CCD | Continuity of Care Document ---
Author Author Sridhar LARA PA-C Organization Unknown Address [address] [place] [address] [address] [place] [address] Phone [phone] Care Team Providers Care Nuclear Medical Technologist Name Role Phone Antonieta Sheets AUTM [phone] Problems Description No Information Available Social History [...] Available Procedures Date Code Description Status 02/22/2020 50714 Inject/Drain Joint/Bursa Major C ompleted Medical Devices Description No Information Available Encounters Type Date Location Provider Dx Diagnosis Office Visit 03/11/2020 2:00p [place] Lara PA-C M66.811 Spontaneous rupture of other tendons, right shoulder Office Visit 02/22/2020 2:45p [place] Cherry Lara PA-C S46.911 A Strain unsp musc/fasc/tend at shldr/up arm, right arm, init Assessments Date Code Description Provider 03/11/2020 M66.811 Spontaneous rupture of other ten dons, right shoulder Cherry Lara PA-C 02/22/2020 S46.911A Strain of unspecifie d muscle, fascia and tendon at shoulder and upper arm level, right arm, initial encounter Cherry Lara PA-C Plan of Treatment 03/11/2020 - [place] Lara PA-C* M66.811 Spontaneous rupture of other tendons, right shoulder* New Xrays:* MRI RT Shoulder, Ordered: 03/11/20 * Follow up:* with [facility] for stat rt shoulder mri results Functional Status Description No Information Available Mental Status Description No Information Available Referrals Refer to Reason for Referral Status Appt Date Cherry Lara PA-C PT EVAL RIGHT SHOULDER - APPROVED NL[facility] Creat ed [address] [address] [phone] Cherry Lara PA-C CONTINUATION OF CARE RIGHT SHOULDER NLG Cre at[facility] [employer] [employer] [address] [address] [phone]
[2020-05-09] MEDS ORDERED: NS 1,000 ML IV SCH (21:16)
[2020-05-09 21:30] VITALS: BP 117/74
[2020-05-09 21:42] LABS: BASO % 0.5 % (0.0-1.0); EOS # 0.3 10^3/uL (0.0-0.5); EOS % 3.5 % (0.0-3.0); HEMATOCRIT 42.3 % (42.0-52.0); HEMOGLOBIN 14.1 g/dl (13.5-17.5); LYMPH # 2.4 10^3/uL (1.5-5.0); LYMPH % 27.7 % (24.0-44.0); MEAN CORPUSCULAR HEMOGLOBIN 29.4 pg (27.0-33.0); MEAN CORPUSCULAR HGB CONC 33.3 g/dl (32.0-36.5); MEAN CORPUSCULAR VOLUME 88.3 fl (80.0-96.0); MONO # 1.1 10^3/uL (0.0-0.8); MONO % 12.3 % (0.0-5.0); NEUTROPHILS # 4.8 10^3/uL (1.5-8.5); NEUTROPHILS % 55.8 % (36.0-66.0); PLATELET COUNT, AUTOMATED 284 10^3/uL (150-450); RED BLOOD COUNT 4.79 10^6/uL (4.30-6.10); WHITE BLOOD COUNT 8.6 10^3/uL (4.0-10.0)
[2020-05-09 22:07] LABS: AMPHETAMINES LEVEL URINE POSITIVE (NEGATIVE); BARBITURATES URINE NEGATIVE (NEGATIVE); BENZODIAZEPINES URINE POSITIVE (NEGATIVE); CANNABINOIDS URINE POSITIVE (NEGATIVE); COCAINE METABOLITE URINE NEGATIVE (NEGATIVE); METHADONE URINE POSITIVE (NEGATIVE); OPIATES URINE NEGATIVE (NEGATIVE); PHENCYCLIDINE URINE NEGATIVE (NEGATIVE)
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
[2020-05-09 22:17] LABS: ACETAMINOPHEN LEVEL < 2.0 UG/ML (10.0-30.0); ALBUMIN 4.8 GM/DL (3.2-5.2); ALT/SGPT 134 U/L (12-78); BILIRUBIN,DIRECT 0.2 MG/DL (0.0-0.2); BILIRUBIN,TOTAL 0.4 MG/DL (0.2-1.0); BLOOD UREA NITROGEN 19 MG/DL (7-18); CALCIUM LEVEL 9.5 MG/DL (8.5-10.1); CARBON DIOXIDE LEVEL 31 MEQ/L (21-32); CHLORIDE LEVEL 100 MEQ/L (98-107); CPK CREATINE PHOSPHOKINASE 581 U/L (39-308); CREATININE FOR GFR 1.15 MG/DL (0.70-1.30); ETHYL ALCOHOL (ETHANOL) < 0.003 % (0.000-0.010); GLOMERULAR FILTRATION RATE > 60.0 (>60); GLUCOSE, FASTING 82 MG/DL (70-100); POTASSIUM SERUM 3.7 MEQ/L (3.5-5.1); SODIUM LEVEL 139 MEQ/L (136-145); THYROID STIMULATING HORMONE 0.876 uIU/ML (0.358-3.740); TOTAL PROTEIN 8.5 GM/DL (6.4-8.2)
--- NOTE | 2020-05-09 22:24 | REPVR ---
PROCEDURE INFORMATION: Exam: XR Chest, 1 View Exam date and time: 05/09/2020 9:41 PM Age: 35 years old Clinical indication: Shortness of breath; Additional info: Altered mental status TECHNIQUE: Imaging protocol: XR of the chest Views: 1 view. COMPARISON: CR Chest, 2 view PA, Lat 06/30/2015 5:30 AM FINDINGS: Lungs: Unremarkable. No consolidation. Pleural spaces: Unremarkable. No pleural effusion. No pneumothorax. Heart/Mediastinum: Unremarkable. No cardiomegaly. Bones/joints: Unremarkable. IMPRESSION: No acute findings. Electronically signed by: Jose Sweet On 05/09/2020 22:23:42 PM
--- NOTE | 2020-05-10 09:33 | ECGEPIP ---
[facility] - ED Test Date: 2020-05-09 Pat Name: ALYSHA STEARNS Department: Room: - Gender: Male Manager Entry: cassandra : 1985 Requested By: DIONNE Hsieh Order Number: [id number] Reading MD: Elda Rosas Measurements Intervals Green[place] Rate: 85 P: 29 SD: 160 QRS: -11 QRSD: 118 T: -1 QT: 389 QTc: 465 Interpretive Statements SINUS RHYTHM MODERATE INTRAVENTRICULAR CONDUCTION DELAY MINIMAL VOLTAGE CRITERIA FOR LVH, CONSIDER NORMAL VARIANT NSTTW abnormalities PROLONGED QTC SIMILAR 12/26/18 Electronically Signed on 05-10-2020 9:33:03 EST by Elda Rosas
== END 2020-05-09 23:18 | disposition left against medical advice (07) ==
LOC: M ED 20:18
DX: F19.10 Other psychoactive substance abuse, uncomplicated (principal); N18.30 Chronic kidney disease, stage 3 unspecified; F33.9 Major depressive disorder, recurrent, unspecified; Z79.899 Other long term (current) drug therapy; Z79.891 Long term (current) use of opiate analgesic
CPT/HCPCS: 71045; 80048; 80076; 80307; 82550; 84443; 85025; 93005; 93041; 94760; 96360; 99285; G0480

== ENCOUNTER → 2020-05-21 | Outpatient (CLI) | payer OTHER ==
[2020-05-21 14:52] LABS: ALBUMIN 4.2 GM/DL (3.2-5.2); ALT/SGPT 58 U/L (12-78); BILIRUBIN,DIRECT < 0.1 MG/DL (0.0-0.2); BILIRUBIN,TOTAL 0.2 MG/DL (0.2-1.0); TOTAL PROTEIN 8.1 GM/DL (6.4-8.2); TRIGLYCERIDES LEVEL 127 MG/DL (<150)
== END ==
LOC: M LAB 13:35
PROVIDERS: ATTEND Dermatology
DX: Z79.899 Other long term (current) drug therapy (principal)

== ENCOUNTER → 2020-05-30 | Outpatient (CLI) | payer OTHER ==
[2020-05-31 08:13] LABS: MUMPS VIRUS IgG ANTIBODY >300.0 AU/mL (Immune >10.9)
== END ==
LOC: M LAB 12:05
PROVIDERS: ATTEND Nurse Practitioner Family
DX: Z01.84 Encounter for antibody response examination (principal)

== ENCOUNTER 2020-12-24 09:35 | Emergency (ER) | payer OTHER ==
[~2020-12-24] VITALS: Ht 165.1 cm; Wt 72.6 kg
[~2020-12-24 09:35] MED LIST changes: -DOXY100C PO; +DOXY100C3 PO; +METH-1177 PO; -METH10TA2 PO
[2020-12-24 09:36] VITALS: BP 131/72
[2020-12-24] MEDS ORDERED: OXYB5TAB10 (09:40)
[2020-12-24] MEDS ORDERED: IBUP80TA PO (10:31)
[2020-12-24] MEDS ORDERED: AUGM875T28 PO (10:31)
[2020-12-24] MEDS ORDERED: ACETAMINOPHEN TAB 650MG DOSE (2X325MG) PO ONE (11:35)
[2020-12-24] MEDS ORDERED: IBUPROFEN 800 MG TAB PO ONE (11:35)
== END 2020-12-24 11:48 | disposition home or self-care (01) ==
LOC: M ED 09:35
DX: K02.9 Dental caries, unspecified (principal); F33.9 Major depressive disorder, recurrent, unspecified; F41.9 Anxiety disorder, unspecified; G89.29 Other chronic pain; M54.9 Dorsalgia, unspecified; Z79.899 Other long term (current) drug therapy

== ENCOUNTER 2021-01-22 20:03 | Emergency (ER) | payer OTHER ==
[~2021-01-22] VITALS: Ht 165.1 cm; Wt 75.0 kg
[~2021-01-22 20:03] MED LIST changes: +AUGM875T28 PO; +OXYB5TAB10
[2021-01-22] MEDS ORDERED: DONE5TAB82 (20:11)
--- OUTSIDE RECORDS SUMMARY | 2021-01-22 20:23 | CCD ---
Author Author [facility] Organization [facility] Address Unknown Phone Unavailable Care Team Providers Care Fumigator And Sterilizer Name Role Phone Emelia Marques Unavailable PROBLEMS Type Condition ICD9-CM Code [id number] Code Onset Dates Condition S tatus W/U Status Risk SNOMED Code Notes Problem Opioid use disorder F11.99 Active confirmed 51282382 Problem Obesity E66.9 Active confirmed 832478246 Problem Urinary hesitancy R39.11 Active confirmed 59 12036 Problem Memory loss R41.3 Active confirmed 42282374 6 Problem Hyperlipidemia E78.5 Active confirmed 48312 004 Problem High risk medications (not anticoagulants) long-term use Z79.899 Active confirmed 142519345 Problem Major depressive disorder F32.9 Active confirmed 763140760 Problem Acne L70.9 Active confirmed 02146420 Problem 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 Active conf irmed 90318217 Problem CKD (chronic kidney disease), stage III N18.3 Active confirmed 712223455 Problem Cervical spondylosis with radiculopathy M47.22 Active confirmed 736102079 Problem Other spondylosis with myelopathy, 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 Active confirmed 04045335 Problem Acne scarring L73.0 Active confirmed 293933 000 ALLERGIES No Known Allergies ENCOUNTERS from 1985 to 2020-10-30 Encounter Location Date Provider Diagnosis [facility] Dermatology [address] [phone] [place] [id number] Oct, Emelia Marques IMMUNIZATIONS Vaccine Route Administration Date Status MMR 0.5mL IM Intramuscular Apr 18, 2020 Administered SOCIAL HISTORY Tobacco Use: Social History Observation Description Date Details (start date - stop date) Never Smoker Sex Assigned At : Social History Observation Description Sex Assigned At Unknown Education: Question Answer Notes Level of Education: Finished High School 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 Yes with Women only Alcohol Screening: Question Answer Notes Did you [...] Mouth once a day for 30 Active Donepezil HCl 5 MG 1 tablet at bedtime Orally Once a day for 30 Days Active ISOtretinoin 30 MG as directed Orally BID with fatty food for 30 days Active Atorvastatin Calcium 40 MG 1 tablet Orally Once a day for 30 day(s) Active Venlafaxine HCl ER 150 MG take 1 capsule by mouth once a day Orally Once a day for 30 days Active Methadone HCl 10 MG/5ML 19 mls Orally Daily Active PROCEDURES No Information RESULTS No Results REASON FOR VISIT [facility] derm auth MEDICAL (GENERAL) HISTORY Type Description Date Medical [...] Date Stop Date Atorvastatin Calcium 40 MG 1 tablet Orally Once a day for 30 day (s) Venlafaxine HCl ER 150 MG take 1 capsule by mouth once a day Orally Once a day for 30 days Donepezil HCl 5 MG 1 tablet at bedtime Orally Once a day for 30 Days Methadone HCl 10 MG/5ML 19 mls Orally Daily Next Appt Details Provider Name:Emelia Marques, 08:15:00 AM, [address], [place], [address], Provider Name:Antonieta Sheets, 2020-04 01:00:00 PM, [address] [place] [address] [place], [address], Insurance Providers Payer Name Payer Address Payer Phone Insured Name Patient Relati onship to Insured Coverage Start Date Coverage End Date [facility] [address] [facility] [id number] ALYSHA STEARNS self
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
--- OUTSIDE RECORDS SUMMARY | 2021-01-22 20:23 | CCD ---
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 Name Role Phone Emelia Marques Unavailable PROBLEMS Type Condition ICD9-CM Code [id number] Code Onset Dates Condition S tatus W/U Status Risk SNOMED Code Notes Problem Opioid use disorder F11.99 Active confirmed 62975650 Problem Obesity E66.9 Active confirmed 166024094 Problem Urinary hesitancy R39.11 Active confirmed 59 62205 Problem Memory loss R41.3 Active confirmed 84836497 6 Problem Hyperlipidemia E78.5 Active confirmed 33227 004 Problem High risk medications (not anticoagulants) long-term use Z79.899 Active confirmed 333537528 Problem Major depressive disorder F32.9 Active confirmed 011888481 Problem Acne L70.9 Active confirmed 48557412 Problem 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 Active conf irmed 42491689 Problem CKD (chronic kidney disease), stage III N18.3 Active confirmed 958728271 Problem Cervical spondylosis with radiculopathy M47.22 Active confirmed 092529449 Problem Other spondylosis with myelopathy, 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 Active confirmed 96289603 Problem Acne scarring L73.0 Active confirmed 948940 000 ALLERGIES No Known Allergies ENCOUNTERS from 1983 to 2020-11-11 Encounter Location Date Provider Diagnosis [facility] D[facility] [address] [phone] [place] [address] Oct, Emelia Marques IMMUNIZATIONS Vaccine Route Administration Date Status MMR 0.5mL IM Intramuscular Apr 18, 2020 Administered SOCIAL HISTORY Tobacco Use: Social History Observation Description Date Details (start date - stop date) Never Smoker Sex Assigned At : Social History Observation Description Sex Assigned At Unknown Education: Question Answer Notes Level of Education: Finished High School Scientology: Question Answer Notes Scientology 08 [employer] Sexual Hx: Question Answer Notes Had sex [...] Information RESULTS No Results REASON FOR VISIT UN auth MEDICAL (GENERAL) HISTORY Type Description Date [...] Details Provider Name:Emelia Marques, 08:15:00 AM, [address], [place], [place], [facility], Provider Name:Antonieta Sheets, 2020-04 01:00:00 PM, [address] [place] [address] [place], [address], Insurance Providers Payer Name Payer Address Payer Phone Insured Name Patient Relati onship to Insured Coverage Start Date Coverage End Date [facility] [employer] [facility] [address] [facility] [phone] ALYSHA STEARNS self
[2021-01-22] MEDS ORDERED: PERCOCET 5MG/325MG TAB PO ONE (20:55)
[2021-01-22] MEDS ORDERED: fentaNYL 100 MCG/2 ML INJECTION (J3010) IV ONE ×2 (21:15→23:10)
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
[2021-01-22 23:27] LABS: BASO # 0.1 10^3/uL (0.0-0.2); BASO % 0.5 % (0.0-1.0); EOS # 0.1 10^3/uL (0.0-0.5); EOS % 1.5 % (0.0-3.0); HEMATOCRIT 38.9 % (42.0-52.0); HEMOGLOBIN 13.1 g/dl (13.5-17.5); LYMPH % 21.1 % (24.0-44.0); MEAN CORPUSCULAR HEMOGLOBIN 30.9 pg (27.0-33.0); MEAN CORPUSCULAR HGB CONC 33.7 g/dl (32.0-36.5); MEAN CORPUSCULAR VOLUME 91.7 fl (80.0-96.0); MONO # 0.6 10^3/uL (0.0-0.8); NEUTROPHILS # 6.6 10^3/uL (1.5-8.5); NEUTROPHILS % 70.7 % (36.0-66.0); PLATELET COUNT, AUTOMATED 297 10^3/uL (150-450); RED BLOOD COUNT 4.24 10^6/uL (4.30-6.10); WHITE BLOOD COUNT 9.4 10^3/uL (4.0-10.0)
--- NOTE | 2021-01-22 23:31 | REPVR ---
PROCEDURE INFORMATION: Exam: MR Right Upper Extremity Other Than Joint Without Contrast, Humerus. Exam date and time: 01/22/2021 10:20 PM Age: 35 years old Clinical indication: Pain; Additional info: Torn bicep TECHNIQUE: Imaging protocol: MR of the Right upper extremity other than joint without intravenous contrast. Exam focused on the Humerus. COMPARISON: CR Shoulder, complete 02/13/2020 6:41 AM Study limitations: Diagnostic evaluation is compromised by motion artifact. Evaluation at the upper shoulder and distal humerus is compromised by artifact at the edges of the coil, and phase encoding artifact at the shoulder and elbow. Evaluation for biceps tear is suboptimal on large [id number] imaging, as neither the origin or distal insertion are properly visualized. FINDINGS: If there are symptoms specifically at the shoulder or elbow, or clinically if a biceps origin or insertion injury is suspected, consider dedicated joint imaging. The long head biceps attachment is not clearly visualized at the biceps labral anchor. The long head is not retracted but partial tear cannot be excluded. Imaging is suboptimal at the shoulder. Short head biceps origin is intact. The lacertus fibrosus is not well evaluated but no obvious edema is seen to suggest an acute injury. The distal attachment of the biceps is not well evaluated but does not appear to be torn or edematous. The biceps muscle is not retracted proximally or distally. There is a small area of signal hyperintensity involving lateral fibers of the may be biceps muscle body (ex image 34, series 1101) which may be secondary to mild sprain, acute denervation or artifact. No other muscle signal abnormalities seen. The rotator cuff is not well evaluated on this study for integrity. Rotator cuff muscle quality is preserved. No soft tissue fluid collection is seen along the arm. Small amount of fluid is seen within the glenohumeral joint as well as suspected fluid within the elbow joint. There are subchondral cystic changes within the humeral head, likely reactive/degenerative. There is signal hyperintensity at the acromioclavicular joint and within the distal clavicle which could be degenerative and/or posttraumatic. IMPRESSION: Study limitations and recommendations discussed above. No biceps retraction is seen to suggest a full-thickness tear, however origin and attachment are not well evaluated as discussed above. There is a small area of focal mild signal hyperintensity within the lateral mid biceps muscle body which could be secondary to a small sprain or segmental acute denervation. Other findings discussed above. Electronically signed by: Agusto Cintron On 01/22/2021 23:31:16 PM
[2021-01-22 23:59] LABS: ALBUMIN 4.2 GM/DL (3.2-5.2); BILIRUBIN,DIRECT 0.1 MG/DL (0.0-0.2); BILIRUBIN,TOTAL 0.2 MG/DL (0.2-1.0); TOTAL PROTEIN 7.9 GM/DL (6.4-8.2)
[2021-01-23] MEDS ORDERED: methocarbamoL 750 MG TAB PO ONE (00:05)
[2021-01-23] MEDS ORDERED: LIDOCAINE 5% (LIDODERM) PATCH TD ONE (00:15)
[2021-01-23] MEDS ORDERED: KETOROLAC 30 MG/ML 1ML VIAL IM ONE (00:15)
[2021-01-23] MEDS ORDERED: ACETAMINOPHEN 325 MG TAB PO ONE (00:15)
[2021-01-23 01:11] VITALS: BP 166/86
[2021-01-23] MEDS ORDERED: **NOTE PATIENT COMMENT** MISC XX SCH (21:00)
== END 2021-01-23 01:19 | disposition home or self-care (01) ==
LOC: M ED 20:03
DX: S46.211A Strain of muscle, fascia and tendon of other parts of biceps, right arm, initial encounter (principal); X50.9XXA Other and unspecified overexertion or strenuous movements or postures, initial encounter; Y92.89 Other specified places as the place of occurrence of the external cause; Y99.0 Civilian activity done for income or pay; Z79.899 Other long term (current) drug therapy; Z79.891 Long term (current) use of opiate analgesic
CPT/HCPCS: 73218; 80076; 85025; 96372; 96374; 96375; 99284; J1885; J3010

== ENCOUNTER → 2021-08-19 | Outpatient (CLI) | payer OTHER ==
[~2021-08-19] MED LIST changes: +DONE5TAB82; +ULTR1TAB PO; -ULTR37.54 PO
== END ==
LOC: M WUC 10:35
PROVIDERS: ATTEND Physician Assistant
DX: Z02.1 Encounter for pre-employment examination (principal)

== ENCOUNTER → 2021-11-26 | Outpatient (CLI) | payer OTHER ==
[2021-11-26 16:29] LABS: HEMOGLOBIN 13.6 g/dl (13.5-17.5); MEAN CORPUSCULAR HEMOGLOBIN 29.7 pg (27.0-33.0); MEAN CORPUSCULAR HGB CONC 33.2 g/dl (32.0-36.5); MEAN CORPUSCULAR VOLUME 89.5 fl (80.0-96.0); PLATELET COUNT, AUTOMATED 257 10^3/uL (150-450); RED BLOOD COUNT 4.58 10^6/uL (4.30-6.10); WHITE BLOOD COUNT 5.4 10^3/uL (4.0-10.0)
[2021-11-26 17:08] LABS: ALBUMIN 4.1 GM/DL (3.2-5.2); ALT/SGPT 77 U/L (12-78); BILIRUBIN,TOTAL 0.3 MG/DL (0.2-1.0); BLOOD UREA NITROGEN 16 MG/DL (7-18); CALCIUM LEVEL 9.7 MG/DL (8.5-10.1); CARBON DIOXIDE LEVEL 32 MEQ/L (21-32); CHLORIDE LEVEL 103 MEQ/L (98-107); CREATININE FOR GFR 1.07 MG/DL (0.70-1.30); GLOMERULAR FILTRATION RATE > 60.0 (>60); GLUCOSE, FASTING 119 MG/DL (70-100); POTASSIUM SERUM 4.1 MEQ/L (3.5-5.1); SODIUM LEVEL 139 MEQ/L (136-145); TOTAL PROTEIN 8.2 GM/DL (6.4-8.2)
[2021-11-26 18:18] LABS: HEPATITIS B SURFACE ANTIGEN NEGATIVE (NEGATIVE)
[2021-11-26 18:44] LABS: HEPATITIS C VIRUS ABY INDEX 0.1 INDEX (<0.8)
[2021-11-26 18:45] LABS: HIV 1&2 SCREEN CENTAUR NEGATIVE (NEGATIVE)
== END ==
LOC: M LAB 15:37
PROVIDERS: ATTEND Family Medicine
DX: F11.20 Opioid dependence, uncomplicated (principal)

== ENCOUNTER 2022-07-04 08:37 | Emergency (ER) | payer OTHER ==
[~2022-07-04] VITALS: Ht 165.1 cm; Wt 79.9 kg
[~2022-07-04 08:37] MED LIST changes: -PAXI20TA29 PO; +PAXI20TA30 PO
[2022-07-04 09:44] LABS: BASO % 0.3 % (0.0-1.0); EOS # 0.3 10^3/uL (0.0-0.5); EOS % 4.3 % (0.0-3.0); HEMATOCRIT 35.8 % (42.0-52.0); HEMOGLOBIN 11.7 g/dl (13.5-17.5); LYMPH # 1.6 10^3/uL (1.5-5.0); LYMPH % 26.3 % (24.0-44.0); MEAN CORPUSCULAR HEMOGLOBIN 29.5 pg (27.0-33.0); MEAN CORPUSCULAR HGB CONC 32.7 g/dl (32.0-36.5); MEAN CORPUSCULAR VOLUME 90.2 fl (80.0-96.0); MONO # 0.8 10^3/uL (0.0-0.8); MONO % 12.6 % (2.0-8.0); NEUTROPHILS # 3.4 10^3/uL (1.5-8.5); NEUTROPHILS % 56.2 % (36.0-66.0); PLATELET COUNT, AUTOMATED 258 10^3/uL (150-450); RED BLOOD COUNT 3.97 10^6/uL (4.30-6.10); WHITE BLOOD COUNT 6.1 10^3/uL (4.0-10.0)
[2022-07-04 09:54] LABS: INR 0.91; PROTHROMBIN TIME 12.5 SECONDS (12.5-14.5)
[2022-07-04 09:55] LABS: PARTIAL THROMBOPLASTIN TIME 26.7 SECONDS (24.8-34.2)
[2022-07-04] MEDS ORDERED: MORPHINE 4 MG/ML 1ML VIAL IV ONE ×2 (09:55→13:20)
[2022-07-04] MEDS ORDERED: ONDANSETRON 4MG 2ML VIAL IV ONE (09:55)
[2022-07-04 10:00] LABS: ALBUMIN 4.2 G/DL (3.2-5.2); ALKALINE PHOSPHATASE 102 U/L (46-116); ALT/SGPT 37 U/L (7.0-40); AST/SGOT 26 U/L (<34); BILIRUBIN,DIRECT < 0.1 MG/DL (<0.4); BILIRUBIN,TOTAL 0.2 MG/DL (0.3-1.2); BLOOD UREA NITROGEN 18 MG/DL (9-23); CALCIUM LEVEL 8.9 MG/DL (8.5-10.1); CARBON DIOXIDE LEVEL 30 MMOL/L (20-31); CHLORIDE LEVEL 103 MMOL/L (98-107); CREATININE FOR GFR 0.89 MG/DL (0.70-1.30); GLOMERULAR FILTRATION RATE > 60.0 (>60); GLUCOSE, FASTING 79 MG/DL (60-100); POTASSIUM SERUM 3.7 MMOL/L (3.5-5.1); SODIUM LEVEL 138 MMOL/L (136-145); TOTAL PROTEIN 7.5 G/DL (5.7-8.2)
[2022-07-04 10:00] LABS: RSV AMPLIFICATION NEGATIVE (NEGATIVE)
[2022-07-04] MEDS ORDERED: KETOROLAC 30 MG/ML 1ML VIAL IV ONE (13:15)
[2022-07-04 14:45] VITALS: BP 135/79
== END 2022-07-04 15:02 | disposition home or self-care (01) ==
LOC: EDBD 08:37 → M ED 08:37
DX: S09.90XA Unspecified injury of head, initial encounter (principal); W19.XXXA Unspecified fall, initial encounter; Y92.039 Unspecified place in apartment as the place of occurrence of the external cause; Y93.01 Activity, walking, marching and hiking; Y99.8 Other external cause status; M50.30 Other cervical disc degeneration, unspecified cervical region; M51.34 Other intervertebral disc degeneration, thoracic region; N18.30 Chronic kidney disease, stage 3 unspecified; R56.9 Unspecified convulsions; F11.20 Opioid dependence, uncomplicated
CPT/HCPCS: 70450; 71045; 72125; 72128; 72141; 72146; 72170; 80048; 80076; 85025; 85610; 85730; 86850; 87631; 93041; 94760; 96374; 96375; 96376; 99285; J1885; J2405

== ENCOUNTER 2022-09-07 06:24 | Emergency (ER) | payer OTHER ==
[~2022-09-07] VITALS: Ht 165.1 cm; Wt 75.8 kg
[2022-09-07 07:19] LABS: BASO # 0.1 10^3/uL (0.0-0.2); BASO % 0.7 % (0.0-1.0); EOS # 0.3 10^3/uL (0.0-0.5); EOS % 3.7 % (0.0-3.0); HEMOGLOBIN 13.2 g/dl (13.5-17.5); LYMPH # 2.2 10^3/uL (1.5-5.0); LYMPH % 32.6 % (24.0-44.0); MEAN CORPUSCULAR HEMOGLOBIN 29.6 pg (27.0-33.0); MEAN CORPUSCULAR VOLUME 89.7 fl (80.0-96.0); MONO # 0.7 10^3/uL (0.0-0.8); MONO % 10.5 % (2.0-8.0); NEUTROPHILS # 3.5 10^3/uL (1.5-8.5); NEUTROPHILS % 52.4 % (36.0-66.0); PLATELET COUNT, AUTOMATED 334 10^3/uL (150-450); RED BLOOD COUNT 4.46 10^6/uL (4.30-6.10); WHITE BLOOD COUNT 6.8 10^3/uL (4.0-10.0)
[2022-09-07 07:25] LABS: ETHYL ALCOHOL (ETHANOL) < 0.003 % (0.000-0.010)
[2022-09-07 07:27] LABS: ACETAMINOPHEN LEVEL < 2.0 UG/ML (10.0-20.0); ALBUMIN 4.5 G/DL (3.2-5.2); ALKALINE PHOSPHATASE 116 U/L (46-116); ALT/SGPT 47 U/L (7.0-40); AST/SGOT 39 U/L (<34); BILIRUBIN,DIRECT 0.2 MG/DL (<0.4); BILIRUBIN,TOTAL 0.6 MG/DL (0.3-1.2); BLOOD UREA NITROGEN 15 MG/DL (9-23); CALCIUM LEVEL 9.6 MG/DL (8.5-10.1); CARBON DIOXIDE LEVEL 26 MMOL/L (20-31); CHLORIDE LEVEL 103 MMOL/L (98-107); CREATININE FOR GFR 0.95 MG/DL (0.70-1.30); GLOMERULAR FILTRATION RATE > 60.0 (>60); GLUCOSE, FASTING 100 MG/DL (60-100); POTASSIUM SERUM 3.4 MMOL/L (3.5-5.1); SALICYLATE LEVEL < 3.0 MG/DL (<30); SODIUM LEVEL 139 MMOL/L (136-145); TOTAL PROTEIN 8.4 G/DL (5.7-8.2)
[2022-09-07 08:26] LABS: HEPATITIS B SURFACE ANTIGEN NEGATIVE (NEGATIVE)
[2022-09-07 08:46] LABS: HEPATITIS B CORE ANTIBODY IGM NEGATIVE (NEGATIVE)
[2022-09-07 09:00] VITALS: BP 143/87
[2022-09-07 10:02] LABS: HEPATITIS C VIRUS ABY INDEX 0.1 INDEX (<0.8)
== END 2022-09-07 09:23 | disposition home or self-care (01) ==
LOC: M ED 06:24 → EDBD 06:24 → M ED 09:23
DX: R56.9 Unspecified convulsions (principal); F19.10 Other psychoactive substance abuse, uncomplicated; M54.9 Dorsalgia, unspecified; F41.9 Anxiety disorder, unspecified; F32.A Depression, unspecified; Z79.899 Other long term (current) drug therapy

== ENCOUNTER 2023-02-14 13:41 | Emergency (ER) | payer MEDICAID, OTHER, SELFPAY ==
[~2023-02-14] VITALS: Ht 165.1 cm; Wt 71.5 kg
[~2023-02-14 13:41] MED LIST changes: -OXYB5TAB10; +OXYB5TAB11
[2023-02-14 13:56] VITALS: BP 143/96; TEMP 98.5; O2SAT 100
== END 2023-02-14 15:20 | disposition left against medical advice (07) ==
LOC: M ED 13:41 → EDBD 13:41 → M ED 15:20
DX: Z53.21 Procedure and treatment not carried out due to patient leaving prior to being seen by health care provider (principal)

== ENCOUNTER 2023-03-02 15:09 | Emergency (ER) | payer MEDICAID ==
[~2023-03-02] VITALS: Ht 165.1 cm; Wt 72.9 kg
[2023-03-02] MEDS ORDERED: LIDOCAINE 2% W/EPINEPHRINE 20ML VIAL **PRES FREE INJ ONE (17:55)
[2023-03-02] MEDS ORDERED: DOXY100C82 PO (18:07)
[2023-03-02] MEDS ORDERED: DOXYCYCLINE HYCLATE 100MG TABLET PO ONE (18:10)
[2023-03-02 18:19] VITALS: BP 140/91; TEMP 98.8; O2SAT 100
== END 2023-03-02 18:20 | disposition home or self-care (01) ==
LOC: M ED 15:09
DX: L02.413 Cutaneous abscess of right upper limb (principal); F19.10 Other psychoactive substance abuse, uncomplicated

== ENCOUNTER 2023-07-01 18:49 | Emergency (ER) | payer MEDICAID, OTHER ==
[~2023-07-01] VITALS: Ht 167.6 cm; Wt 77.3 kg
[~2023-07-01 18:49] MED LIST changes: +DOXY100C82 PO; -OXYB5TAB11; +OXYB5TAB14
[2023-07-01 19:08] VITALS: TEMP 97.2
[2023-07-01] MEDS ORDERED: NS 1,000 ML IV ONE (19:20)
[2023-07-01] MEDS: NS 1,000 ML IV ONE ×2 (19:53→20:45)
[2023-07-01] MEDS: LORazepam 2 MG/ML 1ML VIAL IV STA (19:54)
[2023-07-01 20:02] LABS: VENOUS BASE EXCESS -1.2 (-2.0-2.0); VENOUS HCO3 23.8 MMOL/L (23.0-27.0); VENOUS O2 SATURATION 84.1 % (60.0-80.0); VENOUS PARTIAL PRESSURE CO2 40.6 mmHg (38.0-50.0); VENOUS PARTIAL PRESSURE O2 48.5 mmHg (30.0-50.0); VENOUS PH 7.385 UNITS (7.330-7.430); VENOUS STANDARD HCO3 23.2 MMOL/L
[2023-07-01 20:06] LABS: BASO % 0.1 % (0.0-1.0); HEMATOCRIT 39.3 % (42.0-52.0); HEMOGLOBIN 13.4 g/dl (13.5-17.5); LYMPH # 0.7 10^3/uL (1.5-5.0); LYMPH % 9.4 % (24.0-44.0); MEAN CORPUSCULAR HEMOGLOBIN 30.3 pg (27.0-33.0); MEAN CORPUSCULAR HGB CONC 34.1 g/dl (32.0-36.5); MEAN CORPUSCULAR VOLUME 88.9 fl (80.0-96.0); MONO # 0.3 10^3/uL (0.0-0.8); NEUTROPHILS # 6.4 10^3/uL (1.5-8.5); NEUTROPHILS % 86.2 % (36.0-66.0); PLATELET COUNT, AUTOMATED 328 10^3/uL (150-450); RED BLOOD COUNT 4.42 10^6/uL (4.30-6.10); WHITE BLOOD COUNT 7.5 10^3/uL (4.0-10.0)
[2023-07-01 20:30] LABS: ETHYL ALCOHOL (ETHANOL) < 0.003 % (0.000-0.010)
[2023-07-01 20:31] LABS: CPK CREATINE PHOSPHOKINASE 113 U/L (46-171); SALICYLATE LEVEL < 3.0 MG/DL (<30)
[2023-07-01 20:32] LABS: ALBUMIN 4.4 G/DL (3.2-5.2); ALKALINE PHOSPHATASE 106 U/L (46-116); ALT/SGPT 40 U/L (7.0-40); AST/SGOT 21 U/L (<34); BILIRUBIN,DIRECT 0.1 MG/DL (<0.4); BILIRUBIN,TOTAL 0.3 MG/DL (0.3-1.2); BLOOD UREA NITROGEN 11 MG/DL (9-23); CALCIUM LEVEL 9.9 MG/DL (8.5-10.1); CARBON DIOXIDE LEVEL 27 MMOL/L (20-31); CHLORIDE LEVEL 107 MMOL/L (98-107); CREATININE FOR GFR 0.75 MG/DL (0.70-1.30); GLOMERULAR FILTRATION RATE > 60.0 (>60); GLUCOSE, FASTING 128 MG/DL (60-100); POTASSIUM SERUM 4.3 MMOL/L (3.5-5.1); SODIUM LEVEL 139 MMOL/L (136-145); TOTAL PROTEIN 7.9 G/DL (5.7-8.2)
[2023-07-01 20:40] LABS: AMPHETAMINES LEVEL URINE NEGATIVE (NEGATIVE); BARBITURATES URINE NEGATIVE (NEGATIVE); BENZODIAZEPINES URINE NEGATIVE (NEGATIVE)
[2023-07-01 20:41] LABS: COCAINE METABOLITE URINE NEGATIVE (NEGATIVE); PHENCYCLIDINE URINE NEGATIVE (NEGATIVE)
[2023-07-01 20:43] LABS: CANNABINOIDS URINE POSITIVE (NEGATIVE); METHADONE URINE POSITIVE (NEGATIVE); OPIATES URINE POSITIVE (NEGATIVE)
[2023-07-01 22:00] VITALS: BP 143/78; O2SAT 99
== END 2023-07-01 22:35 | disposition home or self-care (01) ==
LOC: EDBD 18:49 → M ED 18:49
DX: F19.10 Other psychoactive substance abuse, uncomplicated (principal); Z76.5 Malingerer [conscious simulation]; Z79.899 Other long term (current) drug therapy
CPT/HCPCS: 71045; 80048; 80076; 80143; 80307; 82077; 82550; 82803; 83605; 85025; 93005; 96361; 96374; 99284; J2060

== ENCOUNTER → 2023-08-03 | Outpatient (CLI) | payer OTHER ==
[2023-08-03 11:58] LABS: HEMATOCRIT 40.9 % (42.0-52.0); HEMOGLOBIN 13.5 g/dl (13.5-17.5); MEAN CORPUSCULAR HEMOGLOBIN 29.8 pg (27.0-33.0); MEAN CORPUSCULAR VOLUME 90.3 fl (80.0-96.0); PLATELET COUNT, AUTOMATED 313 10^3/uL (150-450); RED BLOOD COUNT 4.53 10^6/uL (4.30-6.10); WHITE BLOOD COUNT 7.2 10^3/uL (4.0-10.0)
[2023-08-03 12:25] LABS: ALBUMIN 4.3 G/DL (3.2-5.2); ALKALINE PHOSPHATASE 134 U/L (46-116); ALT/SGPT 39 U/L (7.0-40); AST/SGOT 23 U/L (<34); BILIRUBIN,TOTAL 0.2 MG/DL (0.3-1.2); BLOOD UREA NITROGEN 12 MG/DL (9-23); CALCIUM LEVEL 10.1 MG/DL (8.5-10.1); CARBON DIOXIDE LEVEL 32 MMOL/L (20-31); CHLORIDE LEVEL 100 MMOL/L (98-107); CREATININE FOR GFR 0.92 MG/DL (0.70-1.30); GLOMERULAR FILTRATION RATE > 60.0 (>60); GLUCOSE, FASTING 87 MG/DL (60-100); POTASSIUM SERUM 4.8 MMOL/L (3.5-5.1); SODIUM LEVEL 138 MMOL/L (136-145)
[2023-08-03 13:14] LABS: HIV 1&2 SCREEN NEGATIVE (NEGATIVE)
[2023-08-03 15:02] LABS: HEPATITIS C VIRUS ABY INDEX 0.04 INDEX (<0.8)
== END ==
LOC: M LAB 10:02
PROVIDERS: ATTEND Family Medicine
DX: F11.20 Opioid dependence, uncomplicated (principal)

== ENCOUNTER 2024-03-20 17:54 | Emergency (ER) | payer OTHER ==
[~2024-03-20 17:54] MED LIST changes: +ERYT1GEL5 TOP; -ERYTGEL TOP; +TRAM1TAB42 PO; -TRAM37.53 PO
[2024-03-20 19:26] LABS: BASO % 0.3 % (0.0-1.0); EOS # 0.2 10^3/uL (0.0-0.5); EOS % 1.3 % (0.0-3.0); HEMATOCRIT 46.3 % (42.0-52.0); HEMOGLOBIN 15.5 g/dl (13.5-17.5); LYMPH # 0.8 10^3/uL (1.5-5.0); LYMPH % 4.9 % (24.0-44.0); MEAN CORPUSCULAR HEMOGLOBIN 30.5 pg (27.0-33.0); MEAN CORPUSCULAR HGB CONC 33.5 g/dl (32.0-36.5); MONO # 1.5 10^3/uL (0.0-0.8); MONO % 9.9 % (2.0-8.0); NEUTROPHILS # 12.7 10^3/uL (1.5-8.5); NEUTROPHILS % 83.3 % (36.0-66.0); PLATELET COUNT, AUTOMATED 281 10^3/uL (150-450); RED BLOOD COUNT 5.09 10^6/uL (4.30-6.10); WHITE BLOOD COUNT 15.2 10^3/uL (4.0-10.0)
[2024-03-20 19:53] LABS: LIPASE 29 U/L (12-53)
[2024-03-20 19:55] LABS: ALBUMIN 4.4 G/DL (3.2-5.2); ALKALINE PHOSPHATASE 139 U/L (40-129); ALT/SGPT 55 U/L (7.0-40); AST/SGOT 38 U/L (<34); BILIRUBIN,DIRECT < 0.1 MG/DL (<0.4); BILIRUBIN,TOTAL 0.2 MG/DL (0.3-1.2); BLOOD UREA NITROGEN 16 MG/DL (9-23); CALCIUM LEVEL 10.7 MG/DL (8.5-10.1); CARBON DIOXIDE LEVEL 26 MMOL/L (20-31); CHLORIDE LEVEL 102 MMOL/L (98-107); CREATININE FOR GFR 0.98 MG/DL (0.70-1.30); GLOMERULAR FILTRATION RATE > 60.0 (>60); GLUCOSE, FASTING 104 MG/DL (60-100); POTASSIUM SERUM 4.6 MMOL/L (3.5-5.1); SODIUM LEVEL 139 MMOL/L (136-145); TOTAL PROTEIN 9.3 G/DL (5.7-8.2)
[2024-03-20] MEDS: ONDANSETRON 4MG 2ML VIAL IV ONE (20:05)
[2024-03-20 21:00] VITALS: BP 125/84; TEMP 97.7; O2SAT 97
[2024-03-20] MEDS ORDERED: PEPC1TAB5 PO (21:47)
[2024-03-20 21:52] LABS: AMPHETAMINES LEVEL URINE NEGATIVE (NEGATIVE); BARBITURATES URINE NEGATIVE (NEGATIVE); BENZODIAZEPINES URINE NEGATIVE (NEGATIVE); COCAINE METABOLITE URINE NEGATIVE (NEGATIVE); PHENCYCLIDINE URINE NEGATIVE (NEGATIVE)
[2024-03-20 21:53] LABS: CANNABINOIDS URINE POSITIVE (NEGATIVE); METHADONE URINE POSITIVE (NEGATIVE); OPIATES URINE POSITIVE (NEGATIVE)
[2024-03-20] MEDS: FAMOTIDINE 20 MG TAB PO ONE (22:02)
[2024-03-20 22:22] LABS: HEMOGLOBIN A1c 5.1 % (4.0-6.0)
== END 2024-03-20 22:06 | disposition home or self-care (01) ==
LOC: M ED 17:54 → EDBD 17:54 → M ED 22:06
DX: K29.70 Gastritis, unspecified, without bleeding (principal); F19.10 Other psychoactive substance abuse, uncomplicated; Z79.899 Other long term (current) drug therapy
CPT/HCPCS: 36415; 76705; 80048; 80076; 80307; 83036; 83690; 85025; 87486; 87581; 87633; 87798; 96374; 99284; J2405

== ENCOUNTER → 2024-05-11 | Outpatient (REF) | payer OTHER ==
[2024-05-11 13:34] LABS: HEMOGLOBIN 12.8 g/dl (13.5-17.5); MEAN CORPUSCULAR HEMOGLOBIN 29.8 pg (27.0-33.0); MEAN CORPUSCULAR HGB CONC 32.8 g/dl (32.0-36.5); MEAN CORPUSCULAR VOLUME 90.9 fl (80.0-96.0); PLATELET COUNT, AUTOMATED 288 10^3/uL (150-450); RED BLOOD COUNT 4.29 10^6/uL (4.30-6.10); WHITE BLOOD COUNT 6.4 10^3/uL (4.0-10.0)
[2024-05-11 13:46] LABS: HEMOGLOBIN A1c 5.4 % (4.0-6.0)
[2024-05-11 13:55] LABS: RHEUMATOID FACTOR QUANT < 3.5 IU/ML (<14)
[2024-05-11 13:57] LABS: ALKALINE PHOSPHATASE 112 U/L (40-129); ALT/SGPT 41 U/L (7.0-40); AST/SGOT 31 U/L (<34); BILIRUBIN,TOTAL 0.2 MG/DL (0.3-1.2); BLOOD UREA NITROGEN 16 MG/DL (9-23); CALCIUM LEVEL 9.3 MG/DL (8.5-10.1); CARBON DIOXIDE LEVEL 26 MMOL/L (20-31); CHLORIDE LEVEL 103 MMOL/L (98-107); CHOLESTEROL LEVEL 167 MG/DL (<200); CHOLESTEROL RISK RATIO 3.47 (<5); CREATININE FOR GFR 0.94 MG/DL (0.70-1.30); GLOMERULAR FILTRATION RATE > 60.0 (>60); GLUCOSE, FASTING 79 MG/DL (60-100); HDL CHOLESTEROL 48.1 MG/DL (>40); LDL CHOLESTEROL 101.1 MG/DL (<100); NON-HDL-C 118.9 MG/DL; POTASSIUM SERUM 4.4 MMOL/L (3.5-5.1); SODIUM LEVEL 140 MMOL/L (136-145); TOTAL PROTEIN 7.7 G/DL (5.7-8.2); TRIGLYCERIDES LEVEL 89 MG/DL (<150)
== END ==
LOC: M LAB REF 12:27
PROVIDERS: ATTEND Student in an Organized Health Care Education/Training Program
DX: Z00.01 Encounter for general adult medical examination with abnormal findings (principal); H04.123 Dry eye syndrome of bilateral lacrimal glands

== ENCOUNTER → 2024-05-21 | Outpatient (CLI) | payer OTHER | LOC: M RAD 14:56 | PROVIDERS: ATTEND Student in an Organized Health Care Education/Training Program | DX: R41.3 Other amnesia (principal); J01.90 Acute sinusitis, unspecified ==

== ENCOUNTER 2024-05-31 08:22 | Inpatient (IN) | payer OTHER ==
[2024-05-31] VITALS (34 sets, daily range): BP systolic 125–151; BP diastolic 73–98; TEMP 99.1–99.6; O2SAT 92–100
[~2024-05-31] VITALS: Ht 167.6 cm; Wt 68.8 kg
[2024-05-31] MEDS: LORazepam 2 MG/ML 1ML VIAL IM ONE (08:50)
[2024-05-31 09:18] LABS: BASO # 0.1 10^3/uL (0.0-0.2); BASO % 0.5 % (0.0-1.0); EOS # 0.4 10^3/uL (0.0-0.5); EOS % 3.4 % (0.0-3.0); HEMATOCRIT 38.3 % (42.0-52.0); HEMOGLOBIN 12.8 g/dl (13.5-17.5); LYMPH # 2.8 10^3/uL (1.5-5.0); LYMPH % 22.3 % (24.0-44.0); MEAN CORPUSCULAR HEMOGLOBIN 29.6 pg (27.0-33.0); MEAN CORPUSCULAR HGB CONC 33.4 g/dl (32.0-36.5); MEAN CORPUSCULAR VOLUME 88.7 fl (80.0-96.0); MONO % 8.1 % (2.0-8.0); NEUTROPHILS # 8.1 10^3/uL (1.5-8.5); NEUTROPHILS % 65.3 % (36.0-66.0); PLATELET COUNT, AUTOMATED 337 10^3/uL (150-450); RED BLOOD COUNT 4.32 10^6/uL (4.30-6.10); WHITE BLOOD COUNT 12.4 10^3/uL (4.0-10.0)
[2024-05-31 09:42] LABS: ETHYL ALCOHOL (ETHANOL) < 0.003 % (0.000-0.010)
[2024-05-31 09:43] LABS: SALICYLATE LEVEL < 3.0 MG/DL (<30)
[2024-05-31] MEDS: LORazepam 2 MG/ML 1ML VIAL IM STA ×2 (09:43→11:19)
[2024-05-31] MEDS: LIDOCAINE 2% 5ML JELLY UROJET TOP ONE (09:43)
[2024-05-31 09:58] LABS: ALBUMIN 3.9 G/DL (3.2-5.2); ALKALINE PHOSPHATASE 118 U/L (40-129); ALT/SGPT 52 U/L (7.0-40); AST/SGOT 49 U/L (<34); BILIRUBIN,DIRECT < 0.1 MG/DL (<0.4); BILIRUBIN,TOTAL 0.2 MG/DL (0.3-1.2); BLOOD UREA NITROGEN 12 MG/DL (9-23); CALCIUM LEVEL 9.4 MG/DL (8.5-10.1); CARBON DIOXIDE LEVEL 22 MMOL/L (20-31); CHLORIDE LEVEL 107 MMOL/L (98-107); CREATININE FOR GFR 0.87 MG/DL (0.70-1.30); GLOMERULAR FILTRATION RATE > 60.0 (>60); GLUCOSE, FASTING 113 MG/DL (60-100); SODIUM LEVEL 144 MMOL/L (136-145); THYROID STIMULATING HORMONE 2.703 uIU/ML (0.55-4.78)
[2024-05-31 10:00] LABS: CPK CREATINE PHOSPHOKINASE 552 U/L (46-171)
[2024-05-31 10:06] LABS: AMPHETAMINES LEVEL URINE NEGATIVE (NEGATIVE); BARBITURATES URINE NEGATIVE (NEGATIVE); CANNABINOIDS URINE NEGATIVE (NEGATIVE); COCAINE METABOLITE URINE NEGATIVE (NEGATIVE); PHENCYCLIDINE URINE NEGATIVE (NEGATIVE)
[2024-05-31 10:12] LABS: BENZODIAZEPINES URINE POSITIVE (NEGATIVE); METHADONE URINE POSITIVE (NEGATIVE); OPIATES URINE POSITIVE (NEGATIVE)
[2024-05-31] MEDS: LORazepam 2 MG/ML 1ML VIAL IV PRN (12:09)
[2024-05-31] MEDS: dexmedeTOMidine 200 MCG in IV 1 EA IV SCH (13:21)
[2024-05-31] MEDS: diazePAM 10MG/2ML SYRINGE IV SCH (14:18)
[2024-05-31] MEDS ORDERED: GENT1SOL OU (15:03)
[2024-05-31] MEDS ORDERED: MED REC IN PROGRESS XX SCH (15:05)
[2024-05-31] MEDS ORDERED: dexmedeTOMidine 200 MCG in IV 1 EA IV SCH (16:00)
[2024-05-31] MEDS: D5W/LR 1,000 ML IV SCH (17:08)
[2024-05-31 18:19] LABS: PHOSPHORUS LEVEL 3.9 MG/DL (2.5-4.9)
[2024-05-31] MEDS ORDERED: diazePAM 10MG/2ML SYRINGE IV PRN (19:00)
[2024-05-31] MEDS: MULTIVITAMIN -ADULT INJECTION 10 ML, THIAMINE INJection 100 MG, FOLIC ACID 1 MG in NS (... IV ONE (21:29)
[2024-06-01] VITALS (7 sets, daily range): BP systolic 125–157; BP diastolic 74–91; TEMP 98.4–98.8; O2SAT 98–100
[2024-06-01 06:24] LABS: BASO % 0.2 % (0.0-1.0); EOS % 0.1 % (0.0-3.0); HEMOGLOBIN 12.5 g/dl (13.5-17.5); LYMPH # 1.2 10^3/uL (1.5-5.0); LYMPH % 8.6 % (24.0-44.0); MEAN CORPUSCULAR HEMOGLOBIN 30.3 pg (27.0-33.0); MEAN CORPUSCULAR HGB CONC 32.9 g/dl (32.0-36.5); MONO # 1.1 10^3/uL (0.0-0.8); MONO % 7.5 % (2.0-8.0); NEUTROPHILS % 83.3 % (36.0-66.0); PLATELET COUNT, AUTOMATED 301 10^3/uL (150-450); RED BLOOD COUNT 4.13 10^6/uL (4.30-6.10); WHITE BLOOD COUNT 14.3 10^3/uL (4.0-10.0)
[2024-06-01] MEDS: PANTOPRAZOLE 40MG VIAL IV SCH (08:47)
[2024-06-01] MEDS: ENOXAPARIN 40MG/0.4ML SYRINGE (J1650 PER 10MG) SC SCH (08:50)
[2024-06-01 09:04] LABS: ALBUMIN 3.5 G/DL (3.2-5.2); ALKALINE PHOSPHATASE 101 U/L (40-129); ALT/SGPT 50 U/L (7.0-40); AST/SGOT 82 U/L (<34); BILIRUBIN,TOTAL 0.3 MG/DL (0.3-1.2); BLOOD UREA NITROGEN 10 MG/DL (9-23); CALCIUM LEVEL 8.6 MG/DL (8.5-10.1); CARBON DIOXIDE LEVEL 24 MMOL/L (20-31); CHLORIDE LEVEL 111 MMOL/L (98-107); CREATININE FOR GFR 0.68 MG/DL (0.70-1.30); GLOMERULAR FILTRATION RATE > 60.0 (>60); GLUCOSE, FASTING 106 MG/DL (60-100); POTASSIUM SERUM 3.9 MMOL/L (3.5-5.1); SODIUM LEVEL 146 MMOL/L (136-145); TOTAL PROTEIN 7.1 G/DL (5.7-8.2)
[2024-06-01 09:36] LABS: CPK CREATINE PHOSPHOKINASE 2534 U/L (46-171)
[2024-06-01] MEDS ORDERED: METH10CO PO (12:01)
[2024-06-01] MEDS ORDERED: HOME MED LIST COMPLETE! XX SCH (12:05)
[2024-06-01] MEDS: LR 1,000 ML IV SCH (12:15)
[2024-06-01] MEDS: METHADONE 10MG TAB PO SCH (12:22)
[2024-06-01] MEDS: LORazepam 1 MG TAB PO PRN (21:16)
[2024-06-02 04:00] VITALS: BP 157/79; TEMP 98.9; O2SAT 100
[2024-06-02 04:53] LABS: HEMOGLOBIN 12.6 g/dl (13.5-17.5); MEAN CORPUSCULAR HGB CONC 33.2 g/dl (32.0-36.5); MEAN CORPUSCULAR VOLUME 90.5 fl (80.0-96.0); PLATELET COUNT, AUTOMATED 266 10^3/uL (150-450); WHITE BLOOD COUNT 7.8 10^3/uL (4.0-10.0)
[2024-06-02 05:31] LABS: ALBUMIN 3.2 G/DL (3.2-5.2); ALKALINE PHOSPHATASE 97 U/L (40-129); ALT/SGPT 44 U/L (7.0-40); AST/SGOT 54 U/L (<34); BILIRUBIN,TOTAL 0.4 MG/DL (0.3-1.2); BLOOD UREA NITROGEN 6 MG/DL (9-23); CALCIUM LEVEL 8.9 MG/DL (8.5-10.1); CARBON DIOXIDE LEVEL 26 MMOL/L (20-31); CHLORIDE LEVEL 110 MMOL/L (98-107); CPK CREATINE PHOSPHOKINASE 1100 U/L (46-171); CREATININE FOR GFR 0.75 MG/DL (0.70-1.30); GLOMERULAR FILTRATION RATE > 60.0 (>60); GLUCOSE, FASTING 83 MG/DL (60-100); POTASSIUM SERUM 3.9 MMOL/L (3.5-5.1); SODIUM LEVEL 146 MMOL/L (136-145); TOTAL PROTEIN 6.6 G/DL (5.7-8.2)
[2024-06-02 08:00] VITALS: BP 123/70; TEMP 98.6; O2SAT 99
[2024-06-02] MEDS: PANTOPRAZOLE 40MG TAB (PROTONIX) PO SCH (08:23)
[2024-06-02] MEDS: TAMSULOSIN 0.4 MG CAP PO SCH (08:27)
[2024-06-02] MEDS ORDERED: FLOM0.4C39 PO (09:00)
== END 2024-06-02 11:16 | disposition home or self-care (01) | DRG 53 ==
LOC: M ED 08:22 → EDBD 08:22 → M ED INP 14:10 → M ICU 15:45
PROVIDERS: ADMIT Internal Medicine Pulmonary Disease; ATTEND Internal Medicine
DX: R56.9 Unspecified convulsions (principal); M62.82 Rhabdomyolysis; Z78.1 Physical restraint status; F11.122 Opioid abuse with intoxication with perceptual disturbance; F32.A Depression, unspecified; Z79.899 Other long term (current) drug therapy; R26.81 Unsteadiness on feet; F11.13 Opioid abuse with withdrawal

== ENCOUNTER → 2024-06-05 | Outpatient (CLI) | payer OTHER ==
[~2024-06-05] MED LIST changes: +FLOM0.4C39 PO; +GENT1SOL OU; +METH10CO PO
[2024-06-05 13:27] LABS: HEMATOCRIT 39.1 % (42.0-52.0); HEMOGLOBIN 12.8 g/dl (13.5-17.5); MEAN CORPUSCULAR HEMOGLOBIN 29.6 pg (27.0-33.0); MEAN CORPUSCULAR HGB CONC 32.7 g/dl (32.0-36.5); MEAN CORPUSCULAR VOLUME 90.5 fl (80.0-96.0); PLATELET COUNT, AUTOMATED 297 10^3/uL (150-450); RED BLOOD COUNT 4.32 10^6/uL (4.30-6.10); WHITE BLOOD COUNT 6.4 10^3/uL (4.0-10.0)
[2024-06-05 13:57] LABS: ALBUMIN 3.8 G/DL (3.2-5.2); ALKALINE PHOSPHATASE 109 U/L (40-129); ALT/SGPT 75 U/L (7.0-40); AST/SGOT 51 U/L (<34); BILIRUBIN,TOTAL 0.2 MG/DL (0.3-1.2); BLOOD UREA NITROGEN 11 MG/DL (9-23); CALCIUM LEVEL 9.2 MG/DL (8.5-10.1); CARBON DIOXIDE LEVEL 29 MMOL/L (20-31); CHLORIDE LEVEL 103 MMOL/L (98-107); CREATININE FOR GFR 0.72 MG/DL (0.70-1.30); GLOMERULAR FILTRATION RATE > 60.0 (>60); GLUCOSE, FASTING 100 MG/DL (60-100); POTASSIUM SERUM 4.8 MMOL/L (3.5-5.1); PROSTATIC SPECIFIC AG MONITOR 0.46 NG/ML (< 4.00); SODIUM LEVEL 139 MMOL/L (136-145); TOTAL PROTEIN 7.6 G/DL (5.7-8.2)
[2024-06-05 14:03] LABS: CPK CREATINE PHOSPHOKINASE 263 U/L (46-171)
== END ==
LOC: M LAB 12:31
PROVIDERS: ATTEND Student in an Organized Health Care Education/Training Program
DX: M62.82 Rhabdomyolysis (principal); R33.9 Retention of urine, unspecified; G40.909 Epilepsy, unspecified, not intractable, without status epilepticus

== ENCOUNTER → 2024-06-12 | Outpatient (REF) | payer OTHER ==
[2024-06-12 13:58] LABS: APPEARANCE, URINE CLEAR (CLEAR); BACTERIA, URINE AUTO NEGATIVE (NEGATIVE); BILIRUBIN, URINE AUTO NEGATIVE (NEGATIVE); BLOOD, URINE BLOOD NEGATIVE (NEGATIVE); COLOR, URINE YELLOW (YELLOW); GLUCOSE, URINE (UA) AUTO NEGATIVE (NEGATIVE); KETONE, URINE AUTO NEGATIVE (NEGATIVE); LEUKOCYTE ESTERASE, URINE AUTO NEGATIVE (NEGATIVE); MUCUS, URINE SMALL (NEGATIVE); NITRITE, URINE AUTO NEGATIVE (NEGATIVE); PROTEIN, URINE AUTO NEGATIVE (NEGATIVE); RBC, URINE AUTO 0 /HPF (0-3); SPECIFIC GRAVITY URINE AUTO 1.012 (1.002-1.035); SQUAMOUS EPITHELIAL CELL UR AU 0 /HPF (0-6); UROBILINOGEN, URINE AUTO 0.2 mg/dL (0.0-2.0); WBC, URINE AUTO 0 /HPF (0-3)
== END ==
LOC: M SMT 12:56
PROVIDERS: ATTEND Urology
DX: R33.9 Retention of urine, unspecified (principal)

== ENCOUNTER → 2024-08-09 | Outpatient (CLI) | payer OTHER ==
[~2024-08-09] MED LIST changes: +DOXY-442 PO; -DOXY100C82 PO; -FLOM0.4C39 PO; +TAMS-18 PO
== END ==
LOC: M PLARAD 14:47
PROVIDERS: ATTEND Nurse Practitioner Family
DX: G40.309 Generalized idiopathic epilepsy and epileptic syndromes, not intractable, without status epilepticus (principal); R41.89 Other symptoms and signs involving cognitive functions and awareness; J32.8 Other chronic sinusitis; J34.1 Cyst and mucocele of nose and nasal sinus; J34.2 Deviated nasal septum; H70.93 Unspecified mastoiditis, bilateral

== ENCOUNTER → 2024-12-27 | Outpatient (CLI) | payer OTHER ==
[~2024-12-27] MED LIST changes: -IBUP-1022 PO; +IBUP600T42 PO
[2024-12-27 16:31] LABS: BASO # 0.0 10^3/uL (0.0-0.2); BASO % 0.7 % (0.0-1.0); EOS # 0.5 10^3/uL (0.0-0.5); EOS % 9.9 % (0.0-3.0); LYMPH # 1.6 10^3/uL (1.5-5.0); LYMPH % 29.9 % (24.0-44.0); MONO # 0.5 10^3/uL (0.0-0.8); MONO % 9.7 % (2.0-8.0); NEUTROPHILS # 2.7 10^3/uL (1.5-8.5); NEUTROPHILS % 49.4 % (36.0-66.0); PLATELET COUNT, AUTOMATED 226 10^3/uL (150-450)
[2024-12-27 16:57] LABS: IRON (FE) 95.0 UG/DL (65-175)
== END ==
LOC: M LAB 16:08
PROVIDERS: ATTEND Student in an Organized Health Care Education/Training Program
DX: R23.3 Spontaneous ecchymoses (principal); Z51.81 Encounter for therapeutic drug level monitoring; Z79.899 Other long term (current) drug therapy
CPT/HCPCS: 36415; 82728; 83540; 85025; G0480

== ENCOUNTER → 2024-12-27 | Outpatient (CLI) | payer OTHER | LOC: M LAB 15:44 | PROVIDERS: ATTEND Family Medicine | DX: Z51.81 Encounter for therapeutic drug level monitoring (principal); Z79.899 Other long term (current) drug therapy ==

== ENCOUNTER → 2024-12-28 | Outpatient (CLI) | payer OTHER | LOC: M PLALAB 11:54 | PROVIDERS: ATTEND Family Medicine | DX: Z79.891 Long term (current) use of opiate analgesic (principal) | CPT/HCPCS: 36415; G0480 ==

== ENCOUNTER → 2025-01-31 | Outpatient (CLI) | payer OTHER | LOC: M SOG 07:18 | PROVIDERS: ATTEND Physician Assistant | DX: M25.521 Pain in right elbow (principal); Z53.9 Procedure and treatment not carried out, unspecified reason ==